=== PATIENT | female | born 1950 | race Caucasian/White ===

== ENCOUNTER → 2016-08-31 | Outpatient (CLI) | payer OTHER, MEDICAID ==
--- NOTE | 2016-08-31 15:39 | RAD ---
HISTORY: Left ankle pain Study: 3 views of the left ankle. Comparison: None Findings: Status post ORIF left ankle fracture. No evidence of hardware compromise. The ankle mortise remains well aligned. No significant soft tissue swelling or injury can be seen. IMPRESSION: 1. No acute abnormalities of the left ankle. 2. ORIF left ankle fracture. Reported By:
--- NOTE | 2016-08-31 15:41 | RAD ---
HISTORY: Left knee pain. Complete two view series of the left knee joint. Findings: Examination of the left knee demonstrate no evidence for a displaced fracture, subluxation, or dislo cation. The medial and lateral tibiofemoral compartments demonstrate moderate joint space narrowing and marginal osteophyte formation. The findings are compatible with mild degenerative joint diseas e. The lateral radiograph fails to demonstrate significant joint effusion. Patellofemoral compartm ent shows moderate DJD and mild chondromalacia patella. IMPRESSION: Osteopenia with a subtle vertical lucency through the tibial plateau which could reflect a 'stress fracture.' This can be correlated with MR imaging, given the degree of osteopenia on this examination. Moderate tricompartmental knee joint osteoarthritis. Reported By:
== END ==
LOC: RAD 14:55
PROVIDERS: ATTEND Nurse Practitioner Family
DX: M25.562 Pain in left knee (principal); M25.572 Pain in left ankle and joints of left foot; Z98.890 Other specified postprocedural states
CPT/HCPCS: 73560; 73610

== ENCOUNTER → 2016-10-15 | Outpatient (CLI) | payer OTHER, MEDICAID ==
--- NOTE | 2016-10-16 08:40 | MRI ---
MRI left knee without contrast Indication: Knee pain with concern for tibial plateau stress fracture Technique: Multi sequence, multiplanar MR images of the left knee were obtained without contrast. Re formatted images in the coronal and sagittal planes were also generated for review. Comparison: Knee radiographs August 31, 2016 Findings: There is patchy marrow edema throughout the medial tibial metaphysis without discrete frac ture identified. However, there is subtle buckling of the medial tibial metaphyseal cortex (for exam ple coronal image 17, series 801) with mild periosteal edema - suggesting a subtle, nondisplaced imp action injury/stress reaction. No intra-articular extension into the knee is seen. There is also pat tanya edema within the medial femoral metaphysis without discrete fracture identified. Remaining marro w signal is within normal limits. There is mild tricompartmental chondromalacia with diffuse articular cartilage thinning noted throug hout all 3 compartments. No full-thickness cartilage defects are identified. No significant joint ef fusion or Rodriguez's cyst is seen. The menisci, cruciate ligaments, MCL, major lateral stabilizers of the knee and extensor mechanism a ppear intact. Impression: 1. Imaging finding suggestive of subtle, impaction injury of the medial tibial metaphysis without si gnificant associated depression or intra-articular extension into the knee. Patchy edema within medi al femoral metaphysis may also reflect mild stress reaction. 2. Otherwise, no MR evidence of internal derangement. 3. Mild tricompartmental chondromalacia. Reported By:
== END ==
LOC: RAD 14:48
PROVIDERS: ATTEND Orthopaedic Surgery
DX: M84.362A Stress fracture, left tibia, initial encounter for fracture (principal); X58.XXXA Exposure to other specified factors, initial encounter
CPT/HCPCS: 73721

== ENCOUNTER 2021-06-19 14:27 | Inpatient (IN) ==
[2021-06-19 18:51] LABS: BASOPHILS # (AUTO) 0.1 X10^3/uL (0.0-0.1); EOSINOPHILS # (AUTO) 0.1 x10^3/uL (0.0-0.2); EOSINOPHILS % (AUTO) 0.6 % (0.9-2.9); HEMATOCRIT 44.4 % (36.0-47.0); HEMOGLOBIN 15.2 g/dL (12.0-16.0); LYMPHOCYTES # (AUTO) 1.5 X10^3/uL (1.3-2.9); LYMPHOCYTES % (AUTO) 16.6 % (21.0-51.0); MEAN CORPUSCULAR HEMOGLOBIN 31.7 pg (27.0-34.0); MEAN CORPUSCULAR HGB CONC 34.2 g/dL (33.0-35.0); MEAN CORPUSCULAR VOLUME 92.9 fL (80.0-100.0); MEAN PLATELET VOLUME 9.3 fL (7.4-11.0); MONOCYTES # (AUTO) 0.9 x10^3/uL (0.3-0.8); MONOCYTES % (AUTO) 10.3 % (0.0-13.0); NEUTROPHILS # (AUTO) 6.6 x10^3/uL (2.2-4.8); NEUTROPHILS % (AUTO) 71.5 % (42.0-75.0); RED BLOOD COUNT 4.78 X10^6/uL (3.5-5.4); RED CELL DISTRIBUTION WIDTH 13.6 % (11.6-16.5); WHITE BLOOD COUNT 9.2 X10^3/uL (3.6-10.0)
[2021-06-19] MEDS: LEVAQUIN PREMIX IV 500 MG 500 MG/100 ML BAG IV SCH (18:59)
[2021-06-19] MEDS: NS 1,000 ML IV 1,000 ML IV SCH (18:59)
[2021-06-19 19:04] LABS: ALANINE AMINOTRANSFERASE 11 Units/L (12-78); ALBUMIN 3.5 g/dL (3.4-5.0); ALKALINE PHOSPHATASE 173 Units/L (46-116); ASPARTATE AMINO TRANSFERASE 17 Units/L (15-37); BLOOD UREA NITROGEN 8 mg/dL (7-18); CALCIUM 8.9 mg/dL (8.5-10.1); CHLORIDE 97 mmol/L (98-107); CREATININE 0.84 mg/dL (0.55-1.02); MAGNESIUM 1.9 mg/dL (1.7-2.9); SODIUM 133 mmol/L (136-145); TOTAL PROTEIN 8.8 g/dL (6.4-8.2); eGFR NON BLACK RACES > 60 (>60)
[2021-06-19 19:08] LABS: LACTIC ACID 1.1 mmol/L (0.4-2.0)
[2021-06-19] MEDS ORDERED: K-RIDER 10 MEQ/NS 100 ML 10 MEQ/100 ML BAG IV PRN (20:10)
[2021-06-19] MEDS ORDERED: MICRO K EXTEN CAP 10 MEQ PO PRN (20:10)
[2021-06-19] MEDS ORDERED: POTASSIUM CHL 60 MEQ/NS 0.45% 500 ML IV PRN (20:10)
[2021-06-19] MEDS ORDERED: POTASSIUM CHLORIDE LIQ 20 MEQ UDC PO PRN (20:10)
[2021-06-19] MEDS ORDERED: POTASSIUM CHL 40 MEQ/NS 0.45% 500 ML IV PRN (20:10)
[2021-06-19] MEDS ORDERED: KLOR-CON PO PRN (20:10)
[2021-06-19] MEDS: ZOSYN VIAL 3.375 GRAMS 3.375 G in NS 100 ML IV 100 ML IV SCH ×2 (20:25→21:06)
[2021-06-19 21:03] LABS: BILIRUBIN,URINE NEGATIVE (NEGATIVE); BLOOD/HEMOGLOBIN,URINE NEGATIVE (NEGATIVE); GLUCOSE, URINE NEGATIVE (NEGATIVE); KETONES,URINE NEGATIVE (NEGATIVE); LEUKOCYTE ESTERASE ,URINE NEGATIVE (NEGATIVE); NITRITES,URINE NEGATIVE (NEGATIVE); PROTEIN,URINE NEGATIVE (NEGATIVE); UROBILINOGEN,URINE NORMAL (NORMAL)
[2021-06-19 21:05] LABS: APPEARANCE,URINE CLEAR (CLEAR); COLOR,URINE PALE YELLOW (YELLOW)
[2021-06-20] MEDS: MAGNESIUM SULFATE 1 GRAM/100 mL PREMIX 1 G/100 ML BAG IV PRN ×2 (00:24→01:25)
[2021-06-20] MEDS: ZOSYN VIAL 3.375 GRAMS 3.375 G in NS 100 ML IV 100 ML IV SCH ×3 (05:05→22:00)
[2021-06-20 05:18] LABS: BASOPHILS % (AUTO) 0.7 % (0.2-1.0); EOSINOPHILS # (AUTO) 0.1 x10^3/uL (0.0-0.2); EOSINOPHILS % (AUTO) 1.1 % (0.9-2.9); HEMATOCRIT 39.5 % (36.0-47.0); HEMOGLOBIN 13.3 g/dL (12.0-16.0); LYMPHOCYTES # (AUTO) 1.4 X10^3/uL (1.3-2.9); LYMPHOCYTES % (AUTO) 20.3 % (21.0-51.0); MEAN CORPUSCULAR HEMOGLOBIN 31.6 pg (27.0-34.0); MEAN CORPUSCULAR HGB CONC 33.7 g/dL (33.0-35.0); MEAN CORPUSCULAR VOLUME 93.8 fL (80.0-100.0); MEAN PLATELET VOLUME 9.1 fL (7.4-11.0); MONOCYTES # (AUTO) 0.9 x10^3/uL (0.3-0.8); NEUTROPHILS # (AUTO) 4.4 x10^3/uL (2.2-4.8); NEUTROPHILS % (AUTO) 64.9 % (42.0-75.0); RED BLOOD COUNT 4.22 X10^6/uL (3.5-5.4); RED CELL DISTRIBUTION WIDTH 13.7 % (11.6-16.5); WHITE BLOOD COUNT 6.8 X10^3/uL (3.6-10.0)
[2021-06-20 05:30] LABS: ALANINE AMINOTRANSFERASE 8 Units/L (12-78); ALBUMIN 2.7 g/dL (3.4-5.0); ALKALINE PHOSPHATASE 135 Units/L (46-116); ASPARTATE AMINO TRANSFERASE 16 Units/L (15-37); BLOOD UREA NITROGEN 6 mg/dL (7-18); CALCIUM 8.2 mg/dL (8.5-10.1); CARBON DIOXIDE 28.5 mmol/L (21-32); CHLORIDE 103 mmol/L (98-107); COR CA(FOR HYPOALB) 9.2 mg/dL (8.5-10.1); CREATININE 0.76 mg/dL (0.55-1.02); SODIUM 136 mmol/L (136-145); TOTAL PROTEIN 7.1 g/dL (6.4-8.2); eGFR NON BLACK RACES > 60 (>60)
--- NOTE | 2021-06-20 08:46 | DR.PROGNOT ---
Hospital Progress Notes - Progress Note for Day of: Progress Note Date: 06/20/21 - Chief Complaint Chief Complaint: c/o Lt neck pain with moderate drainage . for neck US today . - Past Medical Family Social History Past Med/Fam/Surg Hx: No changes since H&P Allergies: Allergies aspirin Allergy (Verified 06/06/21 17:05) - Review Of Systems ROS: No change since H&P - Vital Signs Vital Signs: Temperature 98.6 F Pulse Rate 62 Respiratory Rate 17 Blood Pressure [Left Arm] 124/88 Blood Pressure 174/77 O2 Sat by Pulse Oximetry 97 - Physical Exam Oriented: Normal Eyes: Normal Ear: Normal Nose: Normal Throat: Normal Cardiovascular: Normal : Normal GI:Palpation: Normal GI: Tenderness: Normal Skin: Other (Lt upper anterior neck mass , solid and tender 8 x 6 cm , fixed to deep structures and skin ) Speech Pattern: Clear, Appropriate - Laboratory and Diagnostics Result Diagrams: 06/20/21 04:53 06/20/21 04:53 Labs: Laboratory WBC 6.8 X10^3/uL (3.6-10.0) 06/20/21 04:53 RBC 4.22 X10^6/uL (3.5-5.4) 06/20/21 04:53 Hgb 13.3 g/dL (12.0-16.0) 06/20/21 04:53 Hct 39.5 % (36.0-47.0) 06/20/21 04:53 MCV 93.8 fL (80.0-100.0) 06/20/21 04:53 MCH 31.6 pg (27.0-34.0) 06/20/21 04:53 MCHC 33.7 g/dL (33.0-35.0) 06/20/21 04:53 RDW 13.7 % (11.6-16.5) 06/20/21 04:53 Plt Count 168 X10^3/uL (150.0-450.0) 06/20/21 04:53 MPV 9.1 fL (7.4-11.0) 06/20/21 04:53 Neut % (Auto) 64.9 % (42.0-75.0) 06/20/21 04:53 Lymph % (Auto) 20.3 % (21.0-51.0) L 06/20/21 04:53 [place] % (Auto) 13.0 % (0.0-13.0) 06/20/21 04:53 Eos % (Auto) 1.1 % (0.9-2.9) 06/20/21 04:53 Baso % (Auto) 0.7 % (0.2-1.0) 06/20/21 04:53 Neut # (Auto) 4.4 x10^3/uL (2.2-4.8) 06/20/21 04:53 Lymph # (Auto) 1.4 X10^3/uL (1.3-2.9) 06/20/21 04:53 [place] # (Auto) 0.9 x10^3/uL (0.3-0.8) H 06/20/21 04:53 Eos # (Auto) 0.1 x10^3/uL (0.0-0.2) 06/20/21 04:53 Baso # (Auto) 0.0 X10^3/uL (0.0-0.1) 06/20/21 04:53 Absolute Nucleated RBC 0.1 /100WBC 06/20/21 04:53 Sodium 136 mmol/L (136-145) 06/20/21 04:53 Corrected Sodium TNP 06/20/21 04:53 Potassium 4.1 mmol/L (3.5-5.1) 06/20/21 04:53 Chloride 103 mmol/L (98-107) 06/20/21 04:53 Carbon Dioxide 28.5 mmol/L (21-32) 06/20/21 04:53 BUN 6 mg/dL (7-18) L 06/20/21 04:53 Creatinine 0.76 mg/dL (0.55-1.02) 06/20/21 04:53 Est GFR (MDRD) Af Amer > 60 (>60) 06/20/21 04:53 Est GFR (MDRD) Non-Af > 60 (>60) 06/20/21 04:53 Glucose 93 mg/dL (65-99) 06/20/21 04:53 Lactic Acid 1.1 mmol/L (0.4-2.0) 06/19/21 18:24 Calcium 8.2 mg/dL (8.5-10.1) L 06/20/21 04:53 Corrected Calcium 9.2 mg/dL (8.5-10.1) 06/20/21 04:53 Magnesium 2.4 mg/dL (1.7-2.9) 06/20/21 04:53 Total Bilirubin 0.80 mg/dL (0.2-1.0) 06/20/21 04:53 AST 16 Units/L (15-37) 06/20/21 04:53 ALT 8 Units/L (12-78) L 06/20/21 04:53 Alkaline Phosphatase 135 Units/L (46-116) H 06/20/21 04:53 C-Reactive Protein 31.90 mg/L (0-3.0) H 06/19/21 18:24 Total Protein 7.1 g/dL (6.4-8.2) 06/20/21 04:53 Albumin 2.7 g/dL (3.4-5.0) L 06/20/21 04:53 Globulin 4.4 g/dL (2.5-4.5) 06/20/21 04:53 Albumin/Globulin Ratio 0.6 Ratio (1.1-2.1) L 06/20/21 04:53 Specimen Type Clean catch urine 06/19/21 20:22 Urine Color Pale yellow (YELLOW) 06/19/21 20:22 Urine Appearance Clear (CLEAR) 06/19/21 20:22 Urine pH 7.0 (5.0 - 8.0) 06/19/21 20:22 Ur Specific [place] 1.005 (1.000-1.030) 06/19/21 20:22 Urine Protein Negative (NEGATIVE) 06/19/21 20:22 Urine Glucose (UA) Negative (NEGATIVE) 06/19/21 20:22 Urine Ketones Negative (NEGATIVE) 06/19/21 20:22 Urine Blood Negative (NEGATIVE) 06/19/21 20:22 Urine Nitrite Negative (NEGATIVE) 06/19/21 20:22 Urine Bilirubin Negative (NEGATIVE) 06/19/21 20:22 Urine Urobilinogen Normal (NORMAL) 06/19/21 20:22 Ur Leukocyte Esterase Negative (NEGATIVE) 06/19/21 20:22 SARS CoV-2 RNA Rapid [place] Negative (NEGATIVE) 06/19/21 16:29 - Assessment and Plan 1: upper anterior LT neck mass suspicious for malignancy possible parotid mass . needs VALERIE with sono gram . IV ABT and local care ..
[2021-06-20] MEDS: LEVAQUIN PREMIX IV 500 MG 500 MG/100 ML BAG IV SCH (08:53)
[2021-06-20] MEDS: PERCOCET TAB 5/325 MG PO PRN (08:53)
--- NOTE | 2021-06-20 11:12 | DR.H&P ---
H&P - History & Physical for Day of: H&P Date: 06/19/21 - Chief Complaint Chief Complaint: LEFT SIDE NECK MASS - History of Present Illness History of Present Illness: IS A 71 YEAR OLD PATIENT OF OURS. SHE PRESENTED TO THE OFFICE WITH COMPLAINTS OF SWELLING AND PAIN TO THE LEFT SIDE OF NECK. SWELLING EXTENDS TO BEHIND THE LEFT EAR. AREA HAS APPARENTLY GROWN IN SIZE OVER THE PAST FEW MONTHS. PATIENT REPORTS THAT SYMPTOMS HAVE BEEN PRESENT FOR THE PAST 2-3 MONTHS. SHE REPORTS HAVING A LESION THAT BURST AND BEGAN BLEEDING LAST NIGHT. SHE WAS SEEN IN THE ER ON 06/06/21. A SOFT TISSUE NECK CT WAS OBTAINED AT THAT TIME AND REVEALED: 1. Large mass in the left neck invading the parotid salivary gland, sternocleidomastoid, and abutting the left submandibular salivary gland the jugular vein. 2. There is a branching fluid collection in the periphery of the lesion extending to the skin surface with gas bubble suggesting either abscess or necrosis. 3. Extensive thickening of the scan which could be dermal invasion or cellulitis. Correlate clinically. 4. Ultrasound-guided needle biopsy can be provided. SHE WAS APPARENTLY PRESCRIBED CLINDAMYCIN FROM THE ER, BUT NEVER PICKED UP PRESCRIPTION. WE PRESCRIBED HER BACTRIM, BUT PATIENT NEVER PICKED IT UP EITHER. PATIENTS GRANDDAUGHTER REPORTS THAT PATIENT HAS ALSO HAD INCREASED CONFUSION AND ALTERED MENTAL STATUS. SHE WAS ADMITTED TO THE HOSPITAL FOR FURTHER EVALUATION AND TREATMENT. ON ARRIVAL TO THE HOSPITAL, VITALS WERE 98.7-67-14-99%-179/84. LABS WERE OBTAINED. WBC 9.2, HGB 15.2, HCT 44.4, SODIUM 133, POTASSIUM 2.5, CHLORIDE 97, ALT 11, ALK PHOS 173, CRP 31.90, TOTAL PROTEIN 8.8, GLOBULIN 5.3. COVID-19 NEGATIVE. URINALYSIS IS UNREMARKABLE. BLOOD AND URINE CULTURES WERE SET UP. SHE WAS STARTEDO N NORMAL SALINE AT 75 ML/HR, LEVAQUIN 500MG IV DAILY, ZOSYN 3.375G IV TID, SOLU-MEDROL 40MG IV Q8H, GABAPENTIN 300MG PO TID, THE POTASSIUM AND MAGNESIUM PROTOCOLS. WE WILL CONSULT WITH , GENERAL SURGEON. OTHERWISE, WE PLAN TO FOLLOW-UP WITH AM LABS AND CONTINUE TO MONITOR. TIME SPENT ON CLINICAL ASSESSMENT, REVIEWING LABS AND IMAGING, DECISION MAKING, AND DOCUMENTATION GREATER THAN 75 MINUTES. - Past Medical History Past Medical History: Diabetes, Depression, Anxiety - Past Surgical History Surgical History: Ortho Surgery, Tonsillectomy - Family History Family Medical History: Diabetes Mellitus - Social History Does patient currently use any type of tobacco product: Yes Have you used tobacco products in the last 12 months: Yes Type of Tobacco Use: Cigarettes Alcohol Use: None Drug Use: None - Medications Home Medications: aspirin Allergy (Verified 06/06/21 17:05) - Review of Systems Constitutional: Weakness Eyes: No Symptoms Reported ENT: No Symptoms Reported Respiratory: No Symptoms Reported Cardiovascular: No Symptoms Reported Gastrointestinal: No Symptoms Reported Genitourinary: No Symptoms Reported Musculoskeletal: Leg Pain (BILATERAL LEG PAIN) Skin: Other (MASS AND SWELLING TO LEFT SIDE NECK ) Neurological: Weakness - Physical Exam Vital Signs: Temperature 98.9 F Pulse Rate 70 Respiratory Rate 20 Blood Pressure [Left Arm] 124/88 Blood Pressure 150/72 O2 Sat by Pulse Oximetry 91 Oriented: Normal Eyes: Normal Ear: Normal Nose: Normal Throat: Normal Respiratory: Diminished Throughout Cardiovascular: Normal : Normal Auscultation: Bowel Sounds: Normal Palpation: Normal Tenderness: Normal Skin: Other (Large mass about 8 x 6 cm at the angle of the mandible extending posteriorly and inferiorly. ) Musculoskeletal: Normal Psychiatric: Normal Mood Description: Calm Affect: Normal Speech Pattern: Clear - Assessment/Plan (1) Mass of left side of neck Status: Acute Plan: ADMIT, NORMAL SALINE AT 75 ML/HR, LEVAQUIN 500MG IV DAILY, ZOSYN 3.375G IV TID, SOLU-MEDROL 40MG IV Q8H, GABAPENTIN 300MG PO TID, THE POTASSIUM AND MAGNESIUM PROTOCOLS. CONSULT GENERAL SURGERY - Allergies Allergies/Adverse Reactions: Allergies Allergy/AdvReac Type Severity Reaction Status Date / Time aspirin Allergy Verified 06/06/21 17:05
[2021-06-20] MEDS: NEURONTIN CAP 300 MG PO SCH ×3 (11:15→22:00)
[2021-06-20] MEDS: SOLU-Medrol 40 MG VIAL IVP SCH ×3 (11:15→22:00)
--- NOTE | 2021-06-20 11:20 | RAD ---
HISTORYSOBSTUDYCHEST x-ray, 1 VIEWCOMPARISONX-ray 01/02/2019FINDINGSCOPD is suspected. There may be chronic interstitial lung disease changes seen throughout the lungs. No focal infiltrate is seen. Heart appears prominent but no pulmonary venous congestion is seen. No pneumothorax or pleural effusion is seen.IMPRESSIONProbable COPD and possible diffuse chronic interstitial lung disease changes. Findings have likely mildly worsened since prior study.There is cardiomegaly without evidence of CHF.Electronically signed by: Marcelo Rogers (Jun 20, 2021 11:19:11)
[2021-06-20] MEDS: NS 1,000 ML IV 1,000 ML IV SCH (12:00)
--- NOTE | 2021-06-20 16:51 | US ---
HISTORYMass left side of the neckSTUDYUltrasound SOFT TISSUE NECK, two-dimensional and color Doppler ultrasound is performed of the neck with image documentation.COMPARISONCT 06/06/2021FINDINGSThere is a 5.7 x 2.6 x 4.1 cm complex mass in the left side of the neck corresponding to abnormality seen on CT. Doppler ultrasound suggests it is hypervascular. It is concerning for malignancy. No focal fluid collection is seen to suggest an abscess. The hypodense areas on CT are probable necrosis.IMPRESSION5.7 x 2.6 x 4.1 cm mass in the left side of the neck is probably malignant.Electronically signed by: Marcelo Rogers (Jun 20, 2021 16:50:02)
[2021-06-21] MEDS: NS 1,000 ML IV 1,000 ML IV SCH ×2 (01:00→15:23)
[2021-06-21 05:37] LABS: BASOPHILS % (AUTO) 0.2 % (0.2-1.0); HEMATOCRIT 36.5 % (36.0-47.0); HEMOGLOBIN 12.2 g/dL (12.0-16.0); LYMPHOCYTES # (AUTO) 0.3 X10^3/uL (1.3-2.9); LYMPHOCYTES % (AUTO) 4.8 % (21.0-51.0); MEAN CORPUSCULAR HEMOGLOBIN 31.4 pg (27.0-34.0); MEAN CORPUSCULAR HGB CONC 33.3 g/dL (33.0-35.0); MEAN CORPUSCULAR VOLUME 94.2 fL (80.0-100.0); MEAN PLATELET VOLUME 9.3 fL (7.4-11.0); MONOCYTES # (AUTO) 0.1 x10^3/uL (0.3-0.8); MONOCYTES % (AUTO) 2.1 % (0.0-13.0); NEUTROPHILS # (AUTO) 5.1 x10^3/uL (2.2-4.8); NEUTROPHILS % (AUTO) 92.9 % (42.0-75.0); RED BLOOD COUNT 3.87 X10^6/uL (3.5-5.4); RED CELL DISTRIBUTION WIDTH 13.6 % (11.6-16.5); WHITE BLOOD COUNT 5.5 X10^3/uL (3.6-10.0)
[2021-06-21] MEDS: NEURONTIN CAP 300 MG PO SCH ×3 (05:43→21:11)
[2021-06-21] MEDS: ZOSYN VIAL 3.375 GRAMS 3.375 G in NS 100 ML IV 100 ML IV SCH ×3 (05:43→21:11)
[2021-06-21] MEDS: SOLU-Medrol 40 MG VIAL IVP SCH ×3 (05:43→21:11)
[2021-06-21 06:04] LABS: ALANINE AMINOTRANSFERASE 12 Units/L (12-78); ALBUMIN 2.4 g/dL (3.4-5.0); ALKALINE PHOSPHATASE 124 Units/L (46-116); ASPARTATE AMINO TRANSFERASE 23 Units/L (15-37); BLOOD UREA NITROGEN 9 mg/dL (7-18); CALCIUM 8.4 mg/dL (8.5-10.1); CARBON DIOXIDE 25.7 mmol/L (21-32); CHLORIDE 104 mmol/L (98-107); COR CA(FOR HYPOALB) 9.7 mg/dL (8.5-10.1); COR NA(FOR HYPERGLY) 139 mmol/L (136-145); CREATININE 0.78 mg/dL (0.55-1.02); SODIUM 137 mmol/L (136-145); TOTAL PROTEIN 6.7 g/dL (6.4-8.2); eGFR NON BLACK RACES > 60 (>60)
[2021-06-21 06:25] LABS: BAND NEUTROPHILS % 3 % (0-10); PLATELET MORPHOLOGY COMMENT NORMAL (NORMAL)
[2021-06-21] MEDS: LEVAQUIN PREMIX IV 500 MG 500 MG/100 ML BAG IV SCH (10:03)
[2021-06-21] MEDS ORDERED: PHARMACY CONSULT - VANCOMYCIN XX SCH (13:00)
[2021-06-21] MEDS: VANCOMYCIN IV *PREMIX 1 G/200 ML BAG 1 G/200 ML PIGGYBACK IV SCH (15:23)
[2021-06-22] MEDS: NS 1,000 ML IV 1,000 ML IV SCH ×2 (02:00→18:27)
[2021-06-22 05:13] LABS: ALANINE AMINOTRANSFERASE 15 Units/L (12-78); ALBUMIN 2.4 g/dL (3.4-5.0); ALKALINE PHOSPHATASE 117 Units/L (46-116); ASPARTATE AMINO TRANSFERASE 18 Units/L (15-37); BLOOD UREA NITROGEN 11 mg/dL (7-18); CALCIUM 8.1 mg/dL (8.5-10.1); CARBON DIOXIDE 25.6 mmol/L (21-32); CHLORIDE 105 mmol/L (98-107); COR CA(FOR HYPOALB) 9.4 mg/dL (8.5-10.1); COR NA(FOR HYPERGLY) 141 mmol/L (136-145); CREATININE 0.75 mg/dL (0.55-1.02); SODIUM 139 mmol/L (136-145); TOTAL PROTEIN 6.3 g/dL (6.4-8.2); eGFR NON BLACK RACES > 60 (>60)
[2021-06-22 05:15] LABS: BASOPHILS % (AUTO) 0.2 % (0.2-1.0); HEMATOCRIT 35.2 % (36.0-47.0); HEMOGLOBIN 11.8 g/dL (12.0-16.0); LYMPHOCYTES # (AUTO) 0.3 X10^3/uL (1.3-2.9); LYMPHOCYTES % (AUTO) 4.5 % (21.0-51.0); MEAN CORPUSCULAR HEMOGLOBIN 31.4 pg (27.0-34.0); MEAN CORPUSCULAR HGB CONC 33.5 g/dL (33.0-35.0); MEAN CORPUSCULAR VOLUME 93.8 fL (80.0-100.0); MEAN PLATELET VOLUME 9.4 fL (7.4-11.0); MONOCYTES # (AUTO) 0.3 x10^3/uL (0.3-0.8); NEUTROPHILS # (AUTO) 6.1 x10^3/uL (2.2-4.8); NEUTROPHILS % (AUTO) 91.3 % (42.0-75.0); RED BLOOD COUNT 3.75 X10^6/uL (3.5-5.4); RED CELL DISTRIBUTION WIDTH 13.7 % (11.6-16.5); WHITE BLOOD COUNT 6.7 X10^3/uL (3.6-10.0)
[2021-06-22 05:31] LABS: BAND NEUTROPHILS % 1 % (0-10); PLATELET MORPHOLOGY COMMENT NORMAL (NORMAL)
[2021-06-22] MEDS: ZOSYN VIAL 3.375 GRAMS 3.375 G in NS 100 ML IV 100 ML IV SCH ×3 (05:37→21:16)
[2021-06-22] MEDS: NEURONTIN CAP 300 MG PO SCH ×3 (05:37→21:15)
[2021-06-22] MEDS: SOLU-Medrol 40 MG VIAL IVP SCH ×3 (05:37→21:16)
[2021-06-22] MEDS: VANCOMYCIN IV *PREMIX 1 G/200 ML BAG 1 G/200 ML PIGGYBACK IV SCH (12:47)
[2021-06-22] MEDS: K-DUR TAB 20 MEQ PO PRN (18:27)
[2021-06-23 05:14] LABS: BASOPHILS % (AUTO) 0.1 % (0.2-1.0); HEMATOCRIT 35.5 % (36.0-47.0); HEMOGLOBIN 11.8 g/dL (12.0-16.0); LYMPHOCYTES # (AUTO) 0.2 X10^3/uL (1.3-2.9); LYMPHOCYTES % (AUTO) 3.1 % (21.0-51.0); MEAN CORPUSCULAR HEMOGLOBIN 31.6 pg (27.0-34.0); MEAN CORPUSCULAR HGB CONC 33.4 g/dL (33.0-35.0); MEAN CORPUSCULAR VOLUME 94.5 fL (80.0-100.0); MEAN PLATELET VOLUME 10.2 fL (7.4-11.0); MONOCYTES # (AUTO) 0.4 x10^3/uL (0.3-0.8); MONOCYTES % (AUTO) 5.7 % (0.0-13.0); NEUTROPHILS # (AUTO) 6.8 x10^3/uL (2.2-4.8); NEUTROPHILS % (AUTO) 91.1 % (42.0-75.0); RED BLOOD COUNT 3.75 X10^6/uL (3.5-5.4); RED CELL DISTRIBUTION WIDTH 13.6 % (11.6-16.5); WHITE BLOOD COUNT 7.5 X10^3/uL (3.6-10.0)
[2021-06-23 05:29] LABS: ALANINE AMINOTRANSFERASE 17 Units/L (12-78); ALBUMIN 2.4 g/dL (3.4-5.0); ALKALINE PHOSPHATASE 115 Units/L (46-116); ASPARTATE AMINO TRANSFERASE 23 Units/L (15-37); BLOOD UREA NITROGEN 10 mg/dL (7-18); CALCIUM 7.8 mg/dL (8.5-10.1); CARBON DIOXIDE 23.6 mmol/L (21-32); CHLORIDE 102 mmol/L (98-107); COR CA(FOR HYPOALB) 9.1 mg/dL (8.5-10.1); COR NA(FOR HYPERGLY) 139 mmol/L (136-145); CREATININE 0.77 mg/dL (0.55-1.02); SODIUM 134 mmol/L (136-145); TOTAL PROTEIN 6.4 g/dL (6.4-8.2); eGFR NON BLACK RACES > 60 (>60)
[2021-06-23] MEDS: NEURONTIN CAP 300 MG PO SCH ×3 (05:36→21:43)
[2021-06-23] MEDS: SOLU-Medrol 40 MG VIAL IVP SCH ×3 (05:37→21:43)
[2021-06-23] MEDS: PERCOCET TAB 5/325 MG PO PRN (05:37)
[2021-06-23] MEDS: ZOSYN VIAL 3.375 GRAMS 3.375 G in NS 100 ML IV 100 ML IV SCH ×3 (05:37→21:44)
[2021-06-23] MEDS: NS 1,000 ML IV 1,000 ML IV SCH ×2 (05:37→23:43)
[2021-06-23 05:46] LABS: BAND NEUTROPHILS % 1 % (0-10); PLATELET MORPHOLOGY COMMENT NORMAL (NORMAL)
[2021-06-23] MEDS: K-DUR TAB 20 MEQ PO PRN (06:25)
[2021-06-23] MEDS ORDERED: XYLOCAINE 1 % (PLAIN) ONE (10:05)
[2021-06-23] MEDS ORDERED: DILAUDID INJ IVP ONE (10:06)
--- NOTE | 2021-06-23 11:04 | OR.IMMED ---
Immediate Post-Op Note - Immediate Post-Op Note Pre-Op Diagnosis: LT upper anterior cervical mass possible parotid gland neoplasm .. Post-Op Diagnosis: mass LT upper anterior neck Procedure: Fine Needle Aspirate Lt anterior neck mass Surgeon/Lan Administrator: Dr Iraheta Drains: NONE Complications: none Condition: Stable (to follow as out Pt ..)
[2021-06-23] MEDS: VANCOMYCIN IV *PREMIX 1 G/200 ML BAG 1 G/200 ML PIGGYBACK IV SCH (12:17)
[2021-06-24] MEDS: PERCOCET TAB 5/325 MG PO PRN (04:18)
[2021-06-24] MEDS: NEURONTIN CAP 300 MG PO SCH (05:45)
[2021-06-24] MEDS: ZOSYN VIAL 3.375 GRAMS 3.375 G in NS 100 ML IV 100 ML IV SCH (05:46)
[2021-06-24] MEDS: SOLU-Medrol 40 MG VIAL IVP SCH (05:46)
[2021-06-24 06:19] LABS: BASOPHILS % (AUTO) 0.1 % (0.2-1.0); HEMATOCRIT 36.4 % (36.0-47.0); HEMOGLOBIN 12.3 g/dL (12.0-16.0); LYMPHOCYTES # (AUTO) 0.3 X10^3/uL (1.3-2.9); LYMPHOCYTES % (AUTO) 4.9 % (21.0-51.0); MEAN CORPUSCULAR HEMOGLOBIN 31.8 pg (27.0-34.0); MEAN CORPUSCULAR HGB CONC 33.7 g/dL (33.0-35.0); MEAN CORPUSCULAR VOLUME 94.4 fL (80.0-100.0); MEAN PLATELET VOLUME 10.2 fL (7.4-11.0); MONOCYTES # (AUTO) 0.5 x10^3/uL (0.3-0.8); MONOCYTES % (AUTO) 7.9 % (0.0-13.0); NEUTROPHILS # (AUTO) 5.5 x10^3/uL (2.2-4.8); NEUTROPHILS % (AUTO) 87.1 % (42.0-75.0); RED BLOOD COUNT 3.86 X10^6/uL (3.5-5.4); RED CELL DISTRIBUTION WIDTH 13.5 % (11.6-16.5); WHITE BLOOD COUNT 6.4 X10^3/uL (3.6-10.0)
[2021-06-24 06:37] LABS: ALBUMIN 2.5 g/dL (3.4-5.0); BLOOD UREA NITROGEN 8 mg/dL (7-18); COR CA(FOR HYPOALB) 9.2 mg/dL (8.5-10.1); eGFR NON BLACK RACES > 60 (>60)
[2021-06-24 06:59] LABS: ALANINE AMINOTRANSFERASE 29 Units/L (12-78); ALKALINE PHOSPHATASE 134 Units/L (46-116); ASPARTATE AMINO TRANSFERASE 25 Units/L (15-37); CARBON DIOXIDE 29.8 mmol/L (21-32); CHLORIDE 103 mmol/L (98-107); COR NA(FOR HYPERGLY) 142 mmol/L (136-145); CREATININE 0.74 mg/dL (0.55-1.02); SODIUM 138 mmol/L (136-145)
[2021-06-24 10:55] VITALS: BP 178/82
--- NOTE | 2021-06-24 11:32 | PCM.PROG ---
Progress Note - Progress Note for Day of Date of Exam: 06/23/21 - Subjective Subjective: WAS ADMITTED FOR TREATMENT OF A LEFT NECK MASS. BY LOOKING AT THE SOFT TISSUE ULTRASOUND OF THE NECK, IT APPEARS THAT IT COULD BE INFECTED PAROTID CANCER. SHE DOES REPORTS SOME PURULENT DRAINAGE FROM THE AREA. APPARENTLY IT WAS LANCED OVER THE WEEKEND TO RELIEVE SOME OF THE PRESSURE. ON EXAMINATION, ENLARGED MASS TO LEFT SIDE NECK, AROUND THE ANGLE OF THE MANDIBLE. MINIMAL DRAINAGE FROM AREA THIS MORNING. HEART IS REGULAR IN RATE AND RHYTHM. BILATERAL LUNGS CLEAR TO AUSCULTATION. ABDOMEN IS FLAT, SOFT, AND NON-TENDER WITH NORMAL BOWEL SOUNDS NOTED IN ALL QUADRANTS. NO UPPER OR LOWER EXTREMITY EDEMA NOTED. HER VITALS THIS MORNING ARE: 98.3-59-20-97%-133/60. LABS WERE OBTAINED. WBC 7.5, HGB 11.8, HCT 35.5, PLT COUNT 142, SODIUM 134, POTASSIUM 3.3, GLUCOSE 296, CALCIUM 7.8, ALBUMIN 2.4. BLOOD AND URINE CULTURES PENDING. SHE IS CURRENTLY RECEIVING NORMAL SALINE AT 75 ML/HR, VANCOMYCIN 1G IV DAILY, ZOSYN 3.375G IV TID, SOLU-MEDROL 40MG IV Q8H, GABAPENTIN 300MG PO TID, THE POTASSIUM AND MAGNESIUM PROTOCOLS. WE WILL CONTINUE WITH CURRENT PLAN OF CARE TODAY. PLANS FOR FINE NEEDLE ASPIRATION TODAY. WE ARE IN AGREEMENT WITH PLANS. OTHERWISE, WE PLAN TO FOLLOW UP WITH AM LABS AND CONTINUE TO MONITOR. TIME SPENT ON CLINICAL ASSESSMENT, REVIEWING LABS AND IMAGING, DECISION MAKING, AND DOCUMENTATION GREATER THAN 45 MINUTES. - Past Medical Family Social History Past Med/Fam/Surg Hx: No changes since H&P Allergies: Allergies aspirin Allergy (Verified 06/06/21 17:05) - Review of Systems ROS: No change since H&P - Vital Signs and I&O's Vital Signs: Temperature 98.4 F Pulse Rate 62 Respiratory Rate 16 Blood Pressure [Left Arm] 124/88 Blood Pressure 178/82 O2 Sat by Pulse Oximetry 96 Intake and Output: Intake & Output 06/21/21 06/22/21 06/23/21 06/24/21 11:59 11:59 11:59 11:59 Intake Total 2726 / 2726 4129 / 4129 3577 / 3577 3480 / 3480 Balance 2726 / 2726 4129 / 4129 3577 / 3577 3480 / 3480 - Physical Exam Oriented: Normal Eyes: Normal Ear: Normal Nose: Normal Throat: Normal Respiratory: Normal Cardiovascular: Normal : Normal Auscultation: Bowel Sounds: Normal Palpation: Normal Tenderness: Normal Skin: Other (Large mass about 8 x 6 cm at the angle of the mandible extending posteriorly and inferiorly. ) Musculoskeletal: Normal Psychiatric: Normal Mood Description: Calm Affect: Normal Speech Pattern: Clear, Appropriate - Laboratory and Diagnostics Result Diagrams: 06/24/21 05:35 06/24/21 05:35 Labs: 06/19/21 20:22 Urine,Clean Catch Urine Culture - Final 06/19/21 18:35 Blood Blood Culture - Preliminary 06/19/21 18:24 Blood Blood Culture - Preliminary Laboratory WBC 6.4 X10^3/uL (3.6-10.0) 06/24/21 05:35 RBC 3.86 X10^6/uL (3.5-5.4) 06/24/21 05:35 Hgb 12.3 g/dL (12.0-16.0) 06/24/21 05:35 Hct 36.4 % (36.0-47.0) 06/24/21 05:35 MCV 94.4 fL (80.0-100.0) 06/24/21 05:35 MCH 31.8 pg (27.0-34.0) 06/24/21 05:35 MCHC 33.7 g/dL (33.0-35.0) 06/24/21 05:35 RDW 13.5 % (11.6-16.5) 06/24/21 05:35 Plt Count 124 X10^3/uL (150.0-450.0) L 06/24/21 05:35 Plt Count Comment Decreased (ADEQUATE) A 06/23/21 04:08 MPV 10.2 fL (7.4-11.0) 06/24/21 05:35 Neut % (Auto) 87.1 % (42.0-75.0) H 06/24/21 05:35 Lymph % (Auto) 4.9 % (21.0-51.0) L 06/24/21 05:35 [place] % (Auto) 7.9 % (0.0-13.0) 06/24/21 05:35 Eos % (Auto) 0.0 % (0.9-2.9) L 06/24/21 05:35 Baso % (Auto) 0.1 % (0.2-1.0) L 06/24/21 05:35 Neut # (Auto) 5.5 x10^3/uL (2.2-4.8) H 06/24/21 05:35 Lymph # (Auto) 0.3 X10^3/uL (1.3-2.9) L 06/24/21 05:35 [place] # (Auto) 0.5 x10^3/uL (0.3-0.8) 06/24/21 05:35 Eos # (Auto) 0.0 x10^3/uL (0.0-0.2) 06/24/21 05:35 Baso # (Auto) 0.0 X10^3/uL (0.0-0.1) 06/24/21 05:35 Absolute Nucleated RBC 0.1 /100WBC 06/24/21 05:35 Total Counted 100 06/23/21 04:08 Neutrophils % (Manual) 90 % (39-76) H 06/23/21 04:08 Band Neutrophils % 1 % (0-10) 06/23/21 04:08 Lymphocytes % (Manual) 2 % (13-43) L 06/23/21 04:08 Monocytes % (Manual) 6 % (4-9) 06/23/21 04:08 Eosinophils % (Manual) 1 % (0-6) 06/23/21 04:08 Plt Morphology Comment Normal (NORMAL) 06/23/21 04:08 RBC Morphology Normal (NORMAL) 06/23/21 04:08 PT 14.4 SECONDS (11.8-14.3) 06/24/21 05:35 INR Target Range - 06/24/21 05:35 INR 1.18 (0.8-1.3) 06/24/21 05:35 Sodium 138 mmol/L (136-145) 06/24/21 05:35 Corrected Sodium 142 mmol/L (136-145) 06/24/21 05:35 Potassium 3.7 mmol/L (3.5-5.1) 06/24/21 05:35 Chloride 103 mmol/L (98-107) 06/24/21 05:35 Carbon Dioxide 29.8 mmol/L (21-32) 06/24/21 05:35 BUN 8 mg/dL (7-18) 06/24/21 05:35 Creatinine 0.74 mg/dL (0.55-1.02) 06/24/21 05:35 Est GFR (MDRD) Af Amer > 60 (>60) 06/24/21 05:35 Est GFR (MDRD) Non-Af > 60 (>60) 06/24/21 05:35 Glucose 263 mg/dL (65-99) H 06/24/21 05:35 Lactic Acid 1.1 mmol/L (0.4-2.0) 06/19/21 18:24 Calcium 8.0 mg/dL (8.5-10.1) L 06/24/21 05:35 Corrected Calcium 9.2 mg/dL (8.5-10.1) 06/24/21 05:35 Magnesium 1.9 mg/dL (1.7-2.9) 06/23/21 04:08 Total Bilirubin 0.30 mg/dL (0.2-1.0) 06/24/21 05:35 AST 25 Units/L (15-37) 06/24/21 05:35 ALT 29 Units/L (12-78) 06/24/21 05:35 Alkaline Phosphatase 134 Units/L (46-116) H 06/24/21 05:35 C-Reactive Protein 31.90 mg/L (0-3.0) H 06/19/21 18:24 Total Protein 6.0 g/dL (6.4-8.2) L 06/24/21 05:35 Albumin 2.5 g/dL (3.4-5.0) L 06/24/21 05:35 Globulin 3.5 g/dL (2.5-4.5) 06/24/21 05:35 Albumin/Globulin Ratio 0.7 Ratio (1.1-2.1) L 06/24/21 05:35 Specimen Type Clean catch urine 06/19/21 20:22 Urine Color Pale yellow (YELLOW) 06/19/21 20:22 Urine Appearance Clear (CLEAR) 06/19/21 20:22 Urine pH 7.0 (5.0 - 8.0) 06/19/21 20:22 Ur Specific [place] 1.005 (1.000-1.030) 06/19/21 20:22 Urine Protein Negative (NEGATIVE) 06/19/21 20:22 Urine Glucose (UA) Negative (NEGATIVE) 06/19/21 20:22 Urine Ketones Negative (NEGATIVE) 06/19/21 20:22 Urine Blood Negative (NEGATIVE) 06/19/21 20:22 Urine Nitrite Negative (NEGATIVE) 06/19/21 20:22 Urine Bilirubin Negative (NEGATIVE) 06/19/21 20:22 Urine Urobilinogen Normal (NORMAL) 06/19/21 20:22 Ur Leukocyte Esterase Negative (NEGATIVE) 06/19/21 20:22 SARS CoV-2 RNA Rapid [place] Negative (NEGATIVE) 06/19/21 16:29 Cytology Specimen To follow 06/23/21 10:35 - Plan (1) Mass of left side of neck Status: Acute Plan: NORMAL SALINE AT 75 ML/HR, VANCOMYCIN 1G IV DAILY, ZOSYN 3.375G IV TID, SOLU-MEDROL 40MG IV Q8H, GABAPENTIN 300MG PO TID, THE POTASSIUM AND MAGNESIUM PROTOCOLS. FINE NEEDLE ASPIRATION TODAY
[2021-06-24] MEDS ORDERED: PHARMACY COMMENT IV ONE (12:00)
== END 2021-06-24 11:40 | disposition home or self-care (01) | DRG 607 ==
LOC: ICU → OBSVTOIN 15:59 → MED/SURG 06-23 16:20
PROVIDERS: ADMIT Internal Medicine; ATTEND Internal Medicine
DX: K21.9 Gastro-esophageal reflux disease without esophagitis; R79.82 Elevated C-reactive protein (CRP); Z20.822 Contact with and (suspected) exposure to COVID-19; R06.02 Shortness of breath; E11.65 Type 2 diabetes mellitus with hyperglycemia; C76.0 Malignant neoplasm of head, face and neck; R22.1 Localized swelling, mass and lump, neck; R41.82 Altered mental status, unspecified; F41.8 Other specified anxiety disorders

== ENCOUNTER 2021-12-02 15:29 | Inpatient (IN) ==
[2021-12-02 15:35] VITALS: BMI 15.7
[2021-12-02 16:05] LABS: BASOPHILS # (AUTO) 0.1 X10^3/uL (0.0-0.1); BASOPHILS % (AUTO) 1.3 % (0.2-1.0); EOSINOPHILS # (AUTO) 0.2 x10^3/uL (0.0-0.2); EOSINOPHILS % (AUTO) 3.5 % (0.9-2.9); HEMATOCRIT 39.7 % (36.0-47.0); HEMOGLOBIN 13.2 g/dL (12.0-16.0); LYMPHOCYTES # (AUTO) 0.8 X10^3/uL (1.3-2.9); LYMPHOCYTES % (AUTO) 12.2 % (21.0-51.0); MEAN CORPUSCULAR HEMOGLOBIN 29.5 pg (27.0-34.0); MEAN CORPUSCULAR HGB CONC 33.2 g/dL (33.0-35.0); MEAN CORPUSCULAR VOLUME 89.1 fL (80.0-100.0); MEAN PLATELET VOLUME 9.6 fL (7.4-11.0); MONOCYTES # (AUTO) 0.7 x10^3/uL (0.3-0.8); NEUTROPHILS # (AUTO) 4.5 x10^3/uL (2.2-4.8); RED BLOOD COUNT 4.46 X10^6/uL (3.5-5.4); RED CELL DISTRIBUTION WIDTH 14.7 % (11.6-16.5); WHITE BLOOD COUNT 6.3 X10^3/uL (3.6-10.0)
[2021-12-02 16:17] LABS: ALANINE AMINOTRANSFERASE 17 Units/L (12-78); ALBUMIN 3.2 g/dL (3.4-5.0); ALKALINE PHOSPHATASE 125 Units/L (46-116); ASPARTATE AMINO TRANSFERASE 28 Units/L (15-37); BLOOD ALCOHOL < 3 mg/dL (0-19.9); BLOOD UREA NITROGEN 13 mg/dL (7-18); CALCIUM 8.9 mg/dL (8.5-10.1); CARBON DIOXIDE 30.1 mmol/L (21-32); CHLORIDE 102 mmol/L (98-107); COR CA(FOR HYPOALB) 9.5 mg/dL (8.5-10.1); COR NA(FOR HYPERGLY) 140 mmol/L (136-145); CREATININE 0.79 mg/dL (0.55-1.02); SODIUM 138 mmol/L (136-145); TOTAL PROTEIN 7.7 g/dL (6.4-8.2); eGFR NON BLACK RACES > 60 (>60)
[2021-12-02 16:20] LABS: SALICYLATE < 2.8 mg/dL (2.8-20)
--- NOTE | 2021-12-02 16:31 | DR.GENAD ---
HPI <Yemi Carrillo - Last Filed: 12/05/21 22:08> Time Seen Time Seen by Provider: 12/02/21 16:10 PCP Primary Care Physician: NIYA Complaint/Symptoms Chief Complaint Doctors Comments: PATIENT OVER PAST FEW WEEKS HAS BECAME MORE CONFUSED AND REFUSING TO EAT AND MORE AGGRESSIVE BEHAVIOR. PCP SENT THE PATIENT TO ER FOR FURTHER EVALUATION AND POSSIBLE RESIDENTIAL PLACEMENT. Chief Complaint:: FAMILY MEMBER STATES FOR ABOUT 2 WEEKS PT. HAS BEEN MORE CONFUSED AND REFUSING TO EAT/DRINK. PATIENT IS BECOMING COMBATIVE AND AGGRESSIVE TOWARDS FAMILY MEMBER AND HER WHO ARE PT'S PRIMARY CARE GIVERS AND POA. COVID-19 Coronavirus risk:travel/contact w/high risk person: No Has patient experienced Coronavirus symptoms: No Source History Provided: Patient and Family Member Mode of Arrival Mode of Arrival: Ambulatory Timing Onset of Chief Complaint: 11/18/21 PMH <Yemi Carrillo - Last Filed: 12/05/21 22:08> PMH Past Medical History: Yes Past Medical History: Anxiety, COPD, Depression and Diabetes Past Medical History Comment: SQAUMOUS CELL CARCINOMA Past Surgical History: Yes Surgical History: Ortho Surgery and Tonsillectomy Family History History of Family Medical Conditions: Yes Family Medical History: Diabetes Mellitus Social History Does patient currently use any type of tobacco product: No Have you used tobacco products in the last 12 months: No Type of Tobacco Use: None Does any household member use tobacco: No Alcohol Use: None Do you use any recreational Drugs:: No Lives With: Family Lives Where: Home Travel Risk Coronavirus risk:travel/contact w/high risk person: No Has patient experienced Coronavirus symptoms: No Infectious screening In the last 2 months have you had wt loss of >10#?: NO Have you had fever, night sweats or hemotysis?: No Have you traveled outside the country in the last 6 months?: No Isolation: Standard ROS <Yemi Carrillo - Last Filed: 12/05/21 22:08> Review of Systems Constitutional: Other (IRRATIONAL THINKING AND AGGRESSIVE BEHAVIOR) Eyes: No Symptoms Reported ENTM: No Symptoms Reported Respiratoy: No Symptoms Reported Cardiovascular: No Symptoms Reported Gastrointestinal/Abdominal: No Symptoms Reported Genitourinary: No Symptoms Reported Neurological: No Symptoms Reported Musculoskeletal: Muscle Stiffness Integumentary: No Symptoms Reported Hematologic/Lymphatic: No Symptoms Reported Endocrine: No Symptoms Reported Psychiatric: Other (DELUSIONAL BEHAVIOR) PE <Yemi Carrillo - Last Filed: 12/05/21 22:08> Vital Signs Vitals: Temperature 97.9 F Pulse Rate 57 Respiratory Rate 18 Blood Pressure [Left Arm] 143/78 Blood Pressure 155/112 O2 Sat by Pulse Oximetry 96 General Limitations: No Limitations General Appearance: In No Apparent Distress Head Head Exam: Normal Inspection Eyes Eye exam: Normal Appearance, PERRL and EOMI ENT ENT Exam: Normal Exam, Normal Oropharynx and Normal External Ear Exam External Ear Exam: Normal External Inspection TM/Canal Exam: Bilateral: Normal Nose Exam: Normal Nose Exam Mouth Exam: Normal Inspection Throat Exam: Normal Inspection Neck Neck Exam: Other (AREA OF LEFT NECK WHERE TUMOR WAS REMOVED WAS NOT PAIFUL TO TOUCH.) Chest Chest Inspection: Normal Inspection and Symmetric Chest Wall Rise Cardiovascular Cardiovascular Exam: Regular Rate and Normal Rhythm Abdominal Exam Abdominal Exam: Normal Inspection and Normal Bowel Sounds Extremities Extremities Exam: Normal Inspection and Full ROM Back Back Exam: Normal Inspection and Full ROM Neurologic Neurological Exam: Alert, Oriented X3 and CN II-XII Intact Psychiatric Psychiatric Exam: Anxious and Other (DELUSIONAL) Skin Skin Exam: Warm, Dry and Intact <Sena Jameson - Last Filed: 12/02/21 21:23> Vital Signs Vitals: Temperature 97.9 F Pulse Rate 57 Respiratory Rate 18 Blood Pressure [Left Arm] 143/78 Blood Pressure 155/112 O2 Sat by Pulse Oximetry 96 [facility] <Yemi Carrillo - Last Filed: 12/05/21 22:08> Differential Diagnosis Differential Diagnosis: DELUSIONAL BEHAVIOR, AGGRESSIVE BEHAVIOR COURSE <Yemi Carrillo - Last Filed: 12/05/21 22:08> Treatment Treatment: PATIENT REMAINED RELATIVELY STABLE DURING ER EVALUATION. WAS POSITVE FOR COVID ON LAB EVALUATION. ALL OTHER MEDICAL CLEARANCE WAS DONE. EKG WAS NSR AND CBC AND CMP WERE NORMAL. CONTACT WAS MADE WITH [facility] AND OTHER [facility] AND THEY WOULD NOT TAKE HER BECAUSE OF COVID. <Sena Jameson - Last Filed: 12/02/21 21:23> Consultation Call Returned: 21:07 (Dr Meyer admits for Dr Rod.) ROR <Yemi Carrillo - Last Filed: 12/05/21 22:08> Labs Reviewed Laboratory Results Reviewed?: Yes Result Diagrams: 12/05/21 04:35 12/05/21 04:35 Laboratory: WBC 6.3 X10^3/uL (3.6-10.0) 12/02/21 15:57 RBC 4.46 X10^6/uL (3.5-5.4) 12/02/21 15:57 Hgb 13.2 g/dL (12.0-16.0) 12/02/21 15:57 Hct 39.7 % (36.0-47.0) 12/02/21 15:57 MCV 89.1 fL (80.0-100.0) 12/02/21 15:57 MCH 29.5 pg (27.0-34.0) 12/02/21 15:57 MCHC 33.2 g/dL (33.0-35.0) 12/02/21 15:57 RDW 14.7 % (11.6-16.5) 12/02/21 15:57 Plt Count 155 X10^3/uL (150.0-450.0) 12/02/21 15:57 MPV 9.6 fL (7.4-11.0) 12/02/21 15:57 Neut % (Auto) 72.0 % (42.0-75.0) 12/02/21 15:57 Lymph % (Auto) 12.2 % (21.0-51.0) L 12/02/21 15:57 [place] % (Auto) 11.0 % (0.0-13.0) 12/02/21 15:57 Eos % (Auto) 3.5 % (0.9-2.9) H 12/02/21 15:57 Baso % (Auto) 1.3 % (0.2-1.0) H 12/02/21 15:57 Neut # (Auto) 4.5 x10^3/uL (2.2-4.8) 12/02/21 15:57 Lymph # (Auto) 0.8 X10^3/uL (1.3-2.9) L 12/02/21 15:57 [place] # (Auto) 0.7 x10^3/uL (0.3-0.8) 12/02/21 15:57 Eos # (Auto) 0.2 x10^3/uL (0.0-0.2) 12/02/21 15:57 Baso # (Auto) 0.1 X10^3/uL (0.0-0.1) 12/02/21 15:57 Absolute Nucleated RBC 0.0 /100WBC 12/02/21 15:57 Sodium 138 mmol/L (136-145) 12/02/21 15:57 Corrected Sodium 140 mmol/L (136-145) 12/02/21 15:57 Potassium 3.4 mmol/L (3.5-5.1) L 12/02/21 15:57 Chloride 102 mmol/L (98-107) 12/02/21 15:57 Carbon Dioxide 30.1 mmol/L (21-32) 12/02/21 15:57 BUN 13 mg/dL (7-18) 12/02/21 15:57 Creatinine 0.79 mg/dL (0.55-1.02) 12/02/21 15:57 Est GFR (MDRD) Af Amer > 60 (>60) 12/02/21 15:57 Est GFR (MDRD) Non-Af > 60 (>60) 12/02/21 15:57 Glucose 173 mg/dL (65-99) H 12/02/21 15:57 Calcium 8.9 mg/dL (8.5-10.1) 12/02/21 15:57 Corrected Calcium 9.5 mg/dL (8.5-10.1) 12/02/21 15:57 Total Bilirubin 0.50 mg/dL (0.2-1.0) 12/02/21 15:57 AST 28 Units/L (15-37) 12/02/21 15:57 ALT 17 Units/L (12-78) 12/02/21 15:57 Alkaline Phosphatase 125 Units/L (46-116) H 12/02/21 15:57 Total Protein 7.7 g/dL (6.4-8.2) 12/02/21 15:57 Albumin 3.2 g/dL (3.4-5.0) L 12/02/21 15:57 Globulin 4.5 g/dL (2.5-4.5) 12/02/21 15:57 Albumin/Globulin Ratio 0.7 Ratio (1.1-2.1) L 12/02/21 15:57 Specimen Type Clean catch urine 12/02/21 16:48 Urine Color Yellow (YELLOW) 12/02/21 16:48 Urine Appearance Slightly hazy (CLEAR) 12/02/21 16:48 Urine pH 6.0 (5.0 - 8.0) 12/02/21 16:48 Ur Specific [place] 1.025 (1.000-1.030) 12/02/21 16:48 Urine Protein 4+ (NEGATIVE) 12/02/21 16:48 Urine Glucose (UA) Negative (NEGATIVE) 12/02/21 16:48 Urine Ketones Negative (NEGATIVE) 12/02/21 16:48 Urine Blood 1+ (NEGATIVE) 12/02/21 16:48 Urine Nitrite Negative (NEGATIVE) 12/02/21 16:48 Urine Bilirubin Negative (NEGATIVE) 12/02/21 16:48 Urine Urobilinogen Normal (NORMAL) 12/02/21 16:48 Ur Leukocyte Esterase Negative (NEGATIVE) 12/02/21 16:48 Urine RBC 3-5 /HPF (0-3) A 12/02/21 16:48 Urine WBC None seen /HPF (0-5) 12/02/21 16:48 Ur Squamous Epith Cells Rare /HPF (NEGATIVE) 12/02/21 16:48 Amorphous Sediment 3+ /HPF (NEGATIVE) 12/02/21 16:48 Urine Bacteria Trace /HPF (NEGATIVE) 12/02/21 16:48 Hyaline Casts Few /LPF (NEGATIVE) 12/02/21 16:48 Granular Casts Moderate /LPF (NEGATIVE) 12/02/21 16:48 Urine Mucus Few /HPF (NEGATIVE) 12/02/21 16:48 Ur Culture Indicated? No/not indicated 12/02/21 16:48 Salicylates < 2.8 mg/dL (2.8-20) L 12/02/21 15:57 Urine Opiates Screen Negative (NEG=<300) 12/02/21 16:48 Urine Methadone Screen Negative (NEG=<300) 12/02/21 16:48 Acetaminophen 0.0 ug/mL (10-30) L 12/02/21 15:57 Ur Barbiturates Screen Negative (NEG=<200) 12/02/21 16:48 Ur Phencyclidine Scrn Negative (NEG=<25) 12/02/21 16:48 Ur Amphetamines Screen Negative (NEG=<1000) 12/02/21 16:48 U Benzodiazepines Scrn Positive (NEG=<200) A 12/02/21 16:48 Urine Cocaine Screen Negative (NEG=<300) 12/02/21 16:48 U Marijuana (THC) Screen Negative (NEG=<50) 12/02/21 16:48 Ethyl Alcohol mg/dL < 3 mg/dL (0-19.9) 12/02/21 15:57 SARS CoV-2 RNA Rapid WINTER Positive (NEGATIVE) A 12/02/21 17:40 <Sena Jameson - Last Filed: 12/02/21 21:23> Labs Reviewed Laboratory: WBC 6.3 X10^3/uL (3.6-10.0) 12/02/21 15:57 RBC 4.46 X10^6/uL (3.5-5.4) 12/02/21 15:57 Hgb 13.2 g/dL (12.0-16.0) 12/02/21 15:57 Hct 39.7 % (36.0-47.0) 12/02/21 15:57 MCV 89.1 fL (80.0-100.0) 12/02/21 15:57 MCH 29.5 pg (27.0-34.0) 12/02/21 15:57 MCHC 33.2 g/dL (33.0-35.0) 12/02/21 15:57 RDW 14.7 % (11.6-16.5) 12/02/21 15:57 Plt Count 155 X10^3/uL (150.0-450.0) 12/02/21 15:57 MPV 9.6 fL (7.4-11.0) 12/02/21 15:57 Neut % (Auto) 72.0 % (42.0-75.0) 12/02/21 15:57 Lymph % (Auto) 12.2 % (21.0-51.0) L 12/02/21 15:57 [place] % (Auto) 11.0 % (0.0-13.0) 12/02/21 15:57 Eos % (Auto) 3.5 % (0.9-2.9) H 12/02/21 15:57 Baso % (Auto) 1.3 % (0.2-1.0) H 12/02/21 15:57 Neut # (Auto) 4.5 x10^3/uL (2.2-4.8) 12/02/21 15:57 Lymph # (Auto) 0.8 X10^3/uL (1.3-2.9) L 12/02/21 15:57 [place] # (Auto) 0.7 x10^3/uL (0.3-0.8) 12/02/21 15:57 Eos # (Auto) 0.2 x10^3/uL (0.0-0.2) 12/02/21 15:57 Baso # (Auto) 0.1 X10^3/uL (0.0-0.1) 12/02/21 15:57 Absolute Nucleated RBC 0.0 /100WBC 12/02/21 15:57 Sodium 138 mmol/L (136-145) 12/02/21 15:57 Corrected Sodium 140 mmol/L (136-145) 12/02/21 15:57 Potassium 3.4 mmol/L (3.5-5.1) L 12/02/21 15:57 Chloride 102 mmol/L (98-107) 12/02/21 15:57 Carbon Dioxide 30.1 mmol/L (21-32) 12/02/21 15:57 BUN 13 mg/dL (7-18) 12/02/21 15:57 Creatinine 0.79 mg/dL (0.55-1.02) 12/02/21 15:57 Est GFR (MDRD) Af Amer > 60 (>60) 12/02/21 15:57 Est GFR (MDRD) Non-Af > 60 (>60) 12/02/21 15:57 Glucose 173 mg/dL (65-99) H 12/02/21 15:57 Calcium 8.9 mg/dL (8.5-10.1) 12/02/21 15:57 Corrected Calcium 9.5 mg/dL (8.5-10.1) 12/02/21 15:57 Total Bilirubin 0.50 mg/dL (0.2-1.0) 12/02/21 15:57 AST 28 Units/L (15-37) 12/02/21 15:57 ALT 17 Units/L (12-78) 12/02/21 15:57 Alkaline Phosphatase 125 Units/L (46-116) H 12/02/21 15:57 Total Protein 7.7 g/dL (6.4-8.2) 12/02/21 15:57 Albumin 3.2 g/dL (3.4-5.0) L 12/02/21 15:57 Globulin 4.5 g/dL (2.5-4.5) 12/02/21 15:57 Albumin/Globulin Ratio 0.7 Ratio (1.1-2.1) L 12/02/21 15:57 Specimen Type Clean catch urine 12/02/21 16:48 Urine Color Yellow (YELLOW) 12/02/21 16:48 Urine Appearance Slightly hazy (CLEAR) 12/02/21 16:48 Urine pH 6.0 (5.0 - 8.0) 12/02/21 16:48 Ur Specific [place] 1.025 (1.000-1.030) 12/02/21 16:48 Urine Protein 4+ (NEGATIVE) 12/02/21 16:48 Urine Glucose (UA) Negative (NEGATIVE) 12/02/21 16:48 Urine Ketones Negative (NEGATIVE) 12/02/21 16:48 Urine Blood 1+ (NEGATIVE) 12/02/21 16:48 Urine Nitrite Negative (NEGATIVE) 12/02/21 16:48 Urine Bilirubin Negative (NEGATIVE) 12/02/21 16:48 Urine Urobilinogen Normal (NORMAL) 12/02/21 16:48 Ur Leukocyte Esterase Negative (NEGATIVE) 12/02/21 16:48 Urine RBC 3-5 /HPF (0-3) A 12/02/21 16:48 Urine WBC None seen /HPF (0-5) 12/02/21 16:48 Ur Squamous Epith Cells Rare /HPF (NEGATIVE) 12/02/21 16:48 Amorphous Sediment 3+ /HPF (NEGATIVE) 12/02/21 16:48 Urine Bacteria Trace /HPF (NEGATIVE) 12/02/21 16:48 Hyaline Casts Few /LPF (NEGATIVE) 12/02/21 16:48 Granular Casts Moderate /LPF (NEGATIVE) 12/02/21 16:48 Urine Mucus Few /HPF (NEGATIVE) 12/02/21 16:48 Ur Culture Indicated? No/not indicated 12/02/21 16:48 Salicylates < 2.8 mg/dL (2.8-20) L 12/02/21 15:57 Urine Opiates Screen Negative (NEG=<300) 12/02/21 16:48 Urine Methadone Screen Negative (NEG=<300) 12/02/21 16:48 Acetaminophen 0.0 ug/mL (10-30) L 12/02/21 15:57 Ur Barbiturates Screen Negative (NEG=<200) 12/02/21 16:48 Ur Phencyclidine Scrn Negative (NEG=<25) 12/02/21 16:48 Ur Amphetamines Screen Negative (NEG=<1000) 12/02/21 16:48 U Benzodiazepines Scrn Positive (NEG=<200) A 12/02/21 16:48 Urine Cocaine Screen Negative (NEG=<300) 12/02/21 16:48 U Marijuana (THC) Screen Negative (NEG=<50) 12/02/21 16:48 Ethyl Alcohol mg/dL < 3 mg/dL (0-19.9) 12/02/21 15:57 SARS CoV-2 RNA Rapid WINTER Positive (NEGATIVE) A 12/02/21 17:40 Opioid <Yemi Carrillo - Last Filed: 12/05/21 22:08> Opioid Risk Tool Age (Cm box if 16-45): No History of Preadolescent Sexual Abuse: No Total: 0 Total Score Risk Category: Low Risk Copyright: Torey BANUELOS predicting aberrant behaviors <Sena Jameson - Last Filed: 12/02/21 21:23> Opioid Risk Tool Total: 0 Total Score Risk Category: Low Risk Discharge Plan Diagnosis Discharge Problem: COVID-19, Aggressive behavior, 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
[2021-12-02] MEDS ORDERED: NORCO 7.5/325 MG TAB PO ONE (16:59)
[2021-12-02] MEDS ORDERED: NORCO 7.5/325 MG TAB ONE (17:01)
[2021-12-02 17:08] LABS: BILIRUBIN,URINE NEGATIVE (NEGATIVE); BLOOD/HEMOGLOBIN,URINE 1+ (NEGATIVE); GLUCOSE, URINE NEGATIVE (NEGATIVE); KETONES,URINE NEGATIVE (NEGATIVE); LEUKOCYTE ESTERASE ,URINE NEGATIVE (NEGATIVE); NITRITES,URINE NEGATIVE (NEGATIVE); PROTEIN,URINE 4+ (NEGATIVE); UROBILINOGEN,URINE NORMAL (NORMAL)
[2021-12-02 17:22] LABS: APPEARANCE,URINE SLIGHTLY HAZY (CLEAR); COLOR,URINE YELLOW (YELLOW)
[2021-12-02 17:24] LABS: BACTERIA,URINE TRACE /HPF (NEGATIVE); SQUAMOUS EPITHELIAL CELL,UR RARE /HPF (NEGATIVE)
[2021-12-02 17:26] LABS: GRANULAR CASTS,URINE MODERATE /LPF (NEGATIVE); HYALINE CASTS, URINE FEW /LPF (NEGATIVE)
[2021-12-02] MEDS ORDERED: NS 1,000 ML IV 1,000 ML ONE (22:15)
[2021-12-02] MEDS: NS 1,000 ML IV 1,000 ML IV SCH (22:20)
--- NOTE | 2021-12-02 22:32 | CT ---
STUDY: CT HEAD WITHOUT IV CONTRASTCOMPARISON: NoneTECHNIQUE: axial images were acquired of the head without IV contrast. Coronal and sagittal images were provided. All images were reviewed in a variety of windows and levels.LIMITATIONS: Please note that CT has low sensitivity and accuracy for identifying acute infarction. In addition, there are portions of the brain that are affected by beam hardening artifact which further greatly limits identification of an acute infarct.RADIATION REDUCTION TECHNIQUE: Automated exposure control, Adjustment of the mA and/or kV according to patient size, or iterative reconstruction techniques were used.HISTORY: PT. HAS BEEN MORE CONFUSED AND REFUSING TO EAT/DRINK. PATIENT IS BECOMING COMBATIVE AND AGGRESSIVE. DONE WITH RADIATION, PT. HAS A TUMOR TO LEFT SIDE OF NECKFINDINGS:There is diffuse cerebral atrophy with a regional distribution of low attenuation along the periventricular white matter most likely representing small vessel ischemic changes which are to a degree that would be considered within normal limits for the patient's stated age.There is no evidence of an acute intracranial bleed.There is no evidence of a mass or midline shift.There is no evidence of an extra-axial fluid collection.The p[place]-white matter differentiation is within normal limits.The visualized bones are unremarkable.The visualized sinuses are clear.Complete opacification of the left mastoid air cells is noted. Partial opacification is seen involving the right mastoid air cells.IMPRESSION:1. INVOLUTIONAL CHANGES ARE PRESENT WITH FINDINGS SUGGESTING SMALL VESSEL ISCHEMIC DISEASE WHICH IS TO A DEGREE THAT WOULD BE CONSIDERED WITHIN NORMAL LIMITS FOR THE PATIENT'S STATED AGE.2. THERE IS NO EVIDENCE OF ACUTE INTRACRANIAL BLEED.Nancy lara signed by: Morro Foley (Dec 02, 2021 22:30:52)
[2021-12-03] MEDS ORDERED: NORCO 5/325 MG TAB ONE (01:17)
[2021-12-03] MEDS: NORCO 5/325 MG TAB PO PRN ×4 (01:21→23:21)
[2021-12-03 05:27] LABS: BASOPHILS # (AUTO) 0.2 X10^3/uL (0.0-0.1); BASOPHILS % (AUTO) 3.6 % (0.2-1.0); EOSINOPHILS # (AUTO) 0.3 x10^3/uL (0.0-0.2); EOSINOPHILS % (AUTO) 6.4 % (0.9-2.9); HEMATOCRIT 34.7 % (36.0-47.0); HEMOGLOBIN 11.7 g/dL (12.0-16.0); LYMPHOCYTES # (AUTO) 0.9 X10^3/uL (1.3-2.9); LYMPHOCYTES % (AUTO) 17.7 % (21.0-51.0); MEAN CORPUSCULAR HEMOGLOBIN 29.9 pg (27.0-34.0); MEAN CORPUSCULAR HGB CONC 33.8 g/dL (33.0-35.0); MEAN CORPUSCULAR VOLUME 88.4 fL (80.0-100.0); MEAN PLATELET VOLUME 10.3 fL (7.4-11.0); MONOCYTES # (AUTO) 0.5 x10^3/uL (0.3-0.8); MONOCYTES % (AUTO) 9.6 % (0.0-13.0); NEUTROPHILS # (AUTO) 3.2 x10^3/uL (2.2-4.8); NEUTROPHILS % (AUTO) 62.7 % (42.0-75.0); RED BLOOD COUNT 3.93 X10^6/uL (3.5-5.4); RED CELL DISTRIBUTION WIDTH 14.6 % (11.6-16.5); WHITE BLOOD COUNT 5.1 X10^3/uL (3.6-10.0)
[2021-12-03 05:44] LABS: ALANINE AMINOTRANSFERASE 15 Units/L (12-78); ALBUMIN 2.8 g/dL (3.4-5.0); ALKALINE PHOSPHATASE 109 Units/L (46-116); ASPARTATE AMINO TRANSFERASE 25 Units/L (15-37); BLOOD UREA NITROGEN 13 mg/dL (7-18); CALCIUM 8.5 mg/dL (8.5-10.1); CHLORIDE 104 mmol/L (98-107); COR CA(FOR HYPOALB) 9.5 mg/dL (8.5-10.1); CREATINE KINASE 25 Units/L (26-192); CREATININE 0.54 mg/dL (0.55-1.02); SODIUM 140 mmol/L (136-145); TOTAL PROTEIN 6.8 g/dL (6.4-8.2); eGFR NON BLACK RACES > 60 (>60)
[2021-12-03] MEDS ORDERED: POTASSIUM CHL 40 MEQ/NS 0.45% 500 ML IV PRN (05:51)
[2021-12-03] MEDS ORDERED: POTASSIUM CHL 60 MEQ/NS 0.45% 500 ML IV PRN (05:51)
[2021-12-03] MEDS ORDERED: MICRO K EXTEN CAP 10 MEQ PO PRN (05:51)
[2021-12-03] MEDS ORDERED: KLOR-CON ONE (05:56)
[2021-12-03] MEDS: KLOR-CON PO PRN ×2 (06:00→10:30)
[2021-12-03] MEDS ORDERED: MAGNESIUM SULFATE 1 GRAM/100 mL PREMIX 2 G/200 ML BAG IV ONE (06:02)
[2021-12-03] MEDS: MAGNESIUM SULFATE 1 GRAM/100 mL PREMIX 1 G/100 ML BAG IV PRN ×2 (06:04→07:23)
--- NOTE | 2021-12-03 06:15 | RAD ---
HISTORYCOVID-19, shortness of breathSTUDYChest AP [id number] heart is enlarged. No congestive heart failure is noted. The paco are normal. Lungs are mildly hyperinflated. Interstitial lung changes are present throughout the right lung and in the left lung base some of which are chronic although a superimposed pneumonitis or atypical pneumonia may be present on the right. No alveolar infiltrates or areas of consolidation are identified. No pleural effusions are identified. Bony thorax is unremarkable.IMPRESSIONHyperinflationDiffuse interstitial lung changes throughout the right lung and the left lung base partially chronic however the changes have increased on the right compared to the prior examination. A superimposed acute pneumonitis or atypical pneumonia is possible.Electronically signed by: YOMI HARMAN (Dec 03, 2021 06:13:25)
[2021-12-03] MEDS ORDERED: PULMICORT NEB TX 0.5 MG NEB ONE (07:38)
[2021-12-03] MEDS ORDERED: DUONEB 0.5 MG/3 MG (3 mL) NEB ONE (07:38)
[2021-12-03] MEDS: PULMICORT NEB TX 0.5 MG NEB SCH ×2 (08:44→20:20)
[2021-12-03] MEDS: DUONEB 0.5 MG/3 MG (3 mL) NEB SCH ×4 (08:44→20:20)
[2021-12-03] MEDS: LEVAQUIN PREMIX IV 500 MG 500 MG/100 ML BAG IV SCH (08:48)
[2021-12-03] MEDS: NS 1,000 ML IV 1,000 ML IV SCH (12:00)
[2021-12-03] MEDS: LOVENOX INJ 40 MG SYR SC SCH (14:09)
--- NOTE | 2021-12-03 16:57 | MRI ---
HISTORYAMS, WEAKNESS, HX THROAT CAAltered mental status.[NONCONTRAST] MRI EXAMINATION OF THE BRAIN.Technique: Multiplanar and multi-sequence MRI of the brain was obtained utilizing standard protocol. Sagittal and axial T1 weighted images were obtained. Axial T2 and flair weighted images were performed as well. Axial diffusion weighted and ADC trace mapping was performed. [].Findings: The midline structures are unremarkable. [There is no evidence for cerebellar tonsillar ectopia]. There is [moderate] sulcal and cisternal prominence as well as scattered foci of periventricular white matter T2 signal alteration seen in the high and mid convexities, which is [not] out of portion to patient's stated age. No significant midline shift or herniation syndrome is observed. Examination of the brain parenchyma demonstrates [no abnormal signal characteristics to suggest intraparenchymal mass or hemorrhage]. [No extra-axial fluid collections are observed]. The ventricular system [appears symmetric and nondilated]. [The CP angle is normal in its appearance without brainstem mass or evidence for acoustic neuroma]. The flow voids on both T1 and T2 weighted imaging [are unremarkable]. Evaluation of the diffusion weighted imaging [does not demonstrate abnormal signal characteristics to suggest acute ischemic change]. The extracranial structures [are unremarkable]. The paranasal sinuses [are clear]. The mastoid air cells are [also relatively clear on this examination].IMPRESSION:No acute intracranial abnormality or acute CVA observed. Chronic appearing periventricular white matter microvascular disease is seen throughout the brain which is age-appropriate. Age-appropriate cerebral senescent changes are also observed. No other intracranial abnormalities seen.Electronically signed by: ERIN MORAN III (Dec 03, 2021 16:54:41)
--- NOTE | 2021-12-03 21:33 | DR.H&P ---
H&P - History & Physical for Day of: H&P Date: 12/02/21 - Chief Complaint Chief Complaint: WEAKNESS, AMS, BODY ACHES, CONFUSION - History of Present Illness History of Present Illness: IS A 71 YEAR OLD PATIENT OF OURS. SHE PRESENTED TO THE ER WITH COMPLAINTS OF GENERALIZED WEAKNESS, BODY ACHES, CONFUSION, AND DECREASED APPETITE. HER FAMILY REPORTS THAT SHE HAS HAD ALTERED MENTAL STATUS AND AGGRESSIVE BEHAVIOR AT HOME. PATIENT CURRENTLY LIVES WITH HER NEPHEW AND HIS GIRLFRIEND. HER PMH INCLUDES: SQUAMOUS CELL CARCINOMA OF NECK, ANXIETY, COPD, DEPRESSION, AND DIABETES. SHE RECENTLY HAD A NECK MASS REMOVED. ON ARRIVAL TO THE HOSPITAL, VITALS WERE [id number]%-141/67. LABS WERE OBTAINED. WBC 6.3, HGB 13.2, HCT 39.7, PLT COUNT 155, D-DIMER 1.79, SODIUM 138, POTASSIUM 3.4, CHLORIDE 102, BUN 13, CREATININE 0.79, GLUCOSE 173, CALCIUM 8.9, AST 28, ALT 17, ALK PHOS 125, TOTAL PROTEIN 7.7, ALBUMIN 3.2. COVID-19 POSITIVE. URINALYSIS IS UNREMARKABLE. EKG REVEALED: SINUS RHYTHM WITH OCCASIONAL PVCs. A BRAIN CT WAS OBTAINED AND REVEALED: 1. INVOLUTIONAL CHANGES ARE PRESENT WITH FINDINGS SUGGESTING SMALL VESSEL ISCHEMIC DISEASE WHICH IS TO A DEGREE THAT WOULD BE CONSIDERED WITHIN NORMAL LIMITS FOR THE PATIENT'S STATED AGE. 2. THERE IS NO EVIDENCE OF ACUTE INTRACRANIAL BLEED. BRAIN MRI OBTAINED AND REVEALED: No acute intracranial abnormality or acute CVA observed. Chronic appearing periventricular white matter microvascular disease is seen throughout the brain which is age-appropriate. Age-appropriate cerebral senescent changes are also observed. No other intracranial abnormalities seen. A CHEST XRAY WAS OBTAINED AND REVEALED: Hyperinflation. Diffuse interstitial lung changes throughout the right lung and the left lung base partially chronic however the changes have increased on the right compared to the prior examination. A superimposed acute pneumonitis or atypical pneumonia is possible. IN THE ER, SHE WAS GIVEN NORCO 7.5/325MG PO X 1. MULTIPLE BEHAVIORAL HEALTH UNITS WERE CONTACTED, BUT UNABLE TO ACCEPT PATIENT DUE TO BEING COVID POSITIVE. PATIENT WAS ADMITTED TO THE HOSPTIAL FOR FURTHER EVALUATION AND TREATMENT OF METABOLIC ENCEPHALOPATHY, COVID-19, DEMENTIA, GENERAL WEAKNESS, S/P REMOVAL OF NECK MASS DUE TO SQUAMOUS CELL CARCINOMA. SHE WAS STARTED ON NORMAL SALINE AT 80 ML/HR, THE POTASSIUM AND MAGNESIUM PROTOCOL, LEVAQUIN 500MG IV DAILY, DUONEBS QID, PULMICORT NEBS BID, VALIUM 5MG PO TID PRN, LOVENOX 40MG SC DAILY, NORCO 5/325MG PO Q6H PRN. OTHERWISE, WE PLAN TO FOLLOW-UP WITH AM LABS AND CHEST XRAY AND CONTINUE TO MONITOR. TIME SPENT ON CLINICAL ASSESSMENT, REVIWING LABS AND IMAGING, DECISION MAKING, AND DOCUMENTATION GREATER THAN 75 MINUTES. - Past Medical History Past Medical History: Diabetes, Depression, Anxiety, COPD - Past Surgical History Surgical History: Ortho Surgery, Tonsillectomy Additional Surgical History: S/P REMOVAL OF NECK MASS DUE TO SQUAMOUS CELL CARCINOMA - Family History Family Medical History: Diabetes Mellitus, Cancer - Social History Does patient currently use any type of tobacco product: No Have you used tobacco products in the last 12 months: No Type of Tobacco Use: None Does any household member use tobacco: No Alcohol Use: None Drug Use: None - Medications Home Medications: aspirin Allergy (Verified 12/02/21 15:35) CONTINUE taking the following medications diazepam 5 mg tablet 1 tab PO TID PRN 12/02/21 [History] fluoxetine 20 mg capsule 1 cap PO QDAY 12/02/21 [History] gabapentin 400 mg capsule 1 cap PO TID PRN 12/02/21 [History] ibuprofen 600 mg tablet (IBU) 600 tab PO TID PRN 12/02/21 [History] megestrol 40 mg tablet 1 tab PO BID 12/02/21 [History] oxycodone-acetaminophen 7.5 mg-325 mg tablet 1 tab PO QID PRN 12/02/21 [History] levothyroxine 25 mcg tablet 1 tab PO QDAY 12/03/21 [History] - Review of Systems Constitutional: Weakness Eyes: No Symptoms Reported ENT: No Symptoms Reported Respiratory: Cough, Shortness of Breath Cardiovascular: No Symptoms Reported Gastrointestinal: No Symptoms Reported Genitourinary: No Symptoms Reported Musculoskeletal: Other (GENERALIZED BODY ACHES ) Skin: No Symptoms Reported Neurological: Weakness, Confusion - Physical Exam Vital Signs: Temperature 98.6 F Pulse Rate 90 Respiratory Rate 16 Blood Pressure [Left Arm] 143/78 Blood Pressure 107/56 O2 Sat by Pulse Oximetry 96 Oriented: Person, Place Eyes: Normal Ear: Normal Nose: Normal Throat: Normal, Other (LEFT SIDE NECK SWOLLEN ) Respiratory: Diminished Throughout Cardiovascular: Normal : Normal Auscultation: Bowel Sounds: Normal Palpation: Normal Tenderness: Normal Skin: Decreased [place] Musculoskeletal: Normal Psychiatric: Normal Mood Description: Calm Affect: Normal Speech Pattern: Clear - Assessment/Plan (1) Acute metabolic encephalopathy Status: Acute Plan: ADMIT, SUPPLEMENTAL OXYGEN, NORMAL SALINE AT 80 ML/HR, THE POTASSIUM AND MAGNESIUM PROTOCOL, LEVAQUIN 500MG IV DAILY, DUONEBS QID, PULMICORT NEBS BID, VALIUM 5MG PO TID PRN, LOVENOX 40MG SC DAILY, NORCO 5/325MG PO Q6H PRN. 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
[2021-12-04] MEDS: NS 1,000 ML IV 1,000 ML IV SCH ×3 (00:41→13:40)
[2021-12-04] MEDS: VALIUM PO PRN ×2 (02:33→15:52)
[2021-12-04 05:33] LABS: BASOPHILS # (AUTO) 0.1 X10^3/uL (0.0-0.1); BASOPHILS % (AUTO) 2.6 % (0.2-1.0); EOSINOPHILS # (AUTO) 0.1 x10^3/uL (0.0-0.2); EOSINOPHILS % (AUTO) 2.6 % (0.9-2.9); HEMATOCRIT 31.6 % (36.0-47.0); HEMOGLOBIN 10.8 g/dL (12.0-16.0); LYMPHOCYTES # (AUTO) 0.9 X10^3/uL (1.3-2.9); LYMPHOCYTES % (AUTO) 22.1 % (21.0-51.0); MEAN CORPUSCULAR HEMOGLOBIN 29.8 pg (27.0-34.0); MEAN CORPUSCULAR HGB CONC 34.2 g/dL (33.0-35.0); MEAN CORPUSCULAR VOLUME 87.3 fL (80.0-100.0); MEAN PLATELET VOLUME 9.6 fL (7.4-11.0); MONOCYTES # (AUTO) 0.5 x10^3/uL (0.3-0.8); MONOCYTES % (AUTO) 13.2 % (0.0-13.0); NEUTROPHILS # (AUTO) 2.4 x10^3/uL (2.2-4.8); NEUTROPHILS % (AUTO) 59.5 % (42.0-75.0); RED BLOOD COUNT 3.62 X10^6/uL (3.5-5.4); RED CELL DISTRIBUTION WIDTH 15.1 % (11.6-16.5)
[2021-12-04 05:47] LABS: ALANINE AMINOTRANSFERASE 12 Units/L (12-78); ALBUMIN 2.7 g/dL (3.4-5.0); ALKALINE PHOSPHATASE 100 Units/L (46-116); ASPARTATE AMINO TRANSFERASE 19 Units/L (15-37); BLOOD UREA NITROGEN 8 mg/dL (7-18); CALCIUM 8.4 mg/dL (8.5-10.1); CARBON DIOXIDE 28.6 mmol/L (21-32); CHLORIDE 108 mmol/L (98-107); COR CA(FOR HYPOALB) 9.4 mg/dL (8.5-10.1); CREATININE 0.57 mg/dL (0.55-1.02); MAGNESIUM 1.8 mg/dL (1.7-2.9); SODIUM 142 mmol/L (136-145); TOTAL PROTEIN 6.4 g/dL (6.4-8.2); eGFR NON BLACK RACES > 60 (>60)
[2021-12-04] MEDS: MAGNESIUM SULFATE 1 GRAM/100 mL PREMIX 1 G/100 ML BAG IV PRN ×2 (06:03→07:09)
--- NOTE | 2021-12-04 06:42 | RAD ---
HISTORYFollow-up COVID-19, shortness of breathSTUDYChest AP [id number] heart is enlarged. No congestive heart failure is noted. Lungs are hyperinflated. Diffuse interstitial lung changes are present throughout the right lung unchanged from the prior examination. Less prominent interstitial lung changes again identified in the left lung base. Left upper lung field is clear. No ground-glass or alveolar infiltrates identified. No areas of consolidation identified. No pleural effusions or pneumothoraces identified. Bony thorax is unremarkable.IMPRESSIONHyperinflation, unchangedDiffuse interstitial lung changes throughout the right lung, unchanged from the prior examinationMuch more mild interstitial lung changes left lung base also stable.Electronically signed by: YOMI HARMAN (Dec 04, 2021 06:41:13)
[2021-12-04] MEDS: LOVENOX INJ 40 MG SYR SC SCH (08:10)
[2021-12-04] MEDS: LEVAQUIN PREMIX IV 500 MG 500 MG/100 ML BAG IV SCH (08:10)
[2021-12-04] MEDS: KLOR-CON PO PRN (08:11)
[2021-12-04] MEDS: NORCO 5/325 MG TAB PO PRN ×2 (08:20→17:19)
[2021-12-04] MEDS: DUONEB 0.5 MG/3 MG (3 mL) NEB SCH ×4 (08:50→20:15)
[2021-12-04] MEDS: PULMICORT NEB TX 0.5 MG NEB SCH ×2 (08:50→20:15)
[2021-12-05] MEDS: NORCO 5/325 MG TAB PO PRN ×2 (00:24→08:31)
[2021-12-05] MEDS: VALIUM PO PRN ×2 (00:41→09:10)
[2021-12-05] MEDS: NS 1,000 ML IV 1,000 ML IV SCH ×3 (03:12→16:24)
[2021-12-05 05:30] LABS: BASOPHILS # (AUTO) 0.1 X10^3/uL (0.0-0.1); BASOPHILS % (AUTO) 1.4 % (0.2-1.0); EOSINOPHILS # (AUTO) 0.2 x10^3/uL (0.0-0.2); EOSINOPHILS % (AUTO) 4.8 % (0.9-2.9); HEMATOCRIT 31.2 % (36.0-47.0); HEMOGLOBIN 10.7 g/dL (12.0-16.0); LYMPHOCYTES % (AUTO) 24.9 % (21.0-51.0); MEAN CORPUSCULAR HGB CONC 34.3 g/dL (33.0-35.0); MEAN CORPUSCULAR VOLUME 87.5 fL (80.0-100.0); MEAN PLATELET VOLUME 9.9 fL (7.4-11.0); MONOCYTES # (AUTO) 0.6 x10^3/uL (0.3-0.8); MONOCYTES % (AUTO) 13.3 % (0.0-13.0); NEUTROPHILS # (AUTO) 2.3 x10^3/uL (2.2-4.8); NEUTROPHILS % (AUTO) 55.6 % (42.0-75.0); RED BLOOD COUNT 3.57 X10^6/uL (3.5-5.4); RED CELL DISTRIBUTION WIDTH 15.1 % (11.6-16.5); WHITE BLOOD COUNT 4.2 X10^3/uL (3.6-10.0)
[2021-12-05 05:45] LABS: ALANINE AMINOTRANSFERASE 10 Units/L (12-78); ALBUMIN 2.7 g/dL (3.4-5.0); ALKALINE PHOSPHATASE 97 Units/L (46-116); ASPARTATE AMINO TRANSFERASE 18 Units/L (15-37); BLOOD UREA NITROGEN 3 mg/dL (7-18); CALCIUM 8.4 mg/dL (8.5-10.1); CARBON DIOXIDE 27.5 mmol/L (21-32); CHLORIDE 108 mmol/L (98-107); COR CA(FOR HYPOALB) 9.4 mg/dL (8.5-10.1); CREATININE 0.62 mg/dL (0.55-1.02); MAGNESIUM 1.9 mg/dL (1.7-2.9); SODIUM 142 mmol/L (136-145); TOTAL PROTEIN 6.3 g/dL (6.4-8.2); eGFR NON BLACK RACES > 60 (>60)
[2021-12-05] MEDS: MAGNESIUM SULFATE 1 GRAM/100 mL PREMIX 1 G/100 ML BAG IV PRN ×2 (06:42→08:07)
[2021-12-05] MEDS: DUONEB 0.5 MG/3 MG (3 mL) NEB SCH ×4 (08:30→20:26)
[2021-12-05] MEDS: PULMICORT NEB TX 0.5 MG NEB SCH ×2 (08:30→20:26)
[2021-12-05] MEDS: KLOR-CON PO PRN (08:36)
[2021-12-05] MEDS: LOVENOX INJ 40 MG SYR SC SCH (08:38)
[2021-12-05] MEDS: LEVAQUIN PREMIX IV 500 MG 500 MG/100 ML BAG IV SCH (09:02)
--- NOTE | 2021-12-05 10:44 | PCM.PROG ---
Progress Note - Progress Note for Day of Date of Exam: 12/04/21 - Subjective Subjective: WAS ADMITTED FOR TREATMENT OF ACUTE METABOLIC ENCEPHALOPATHY, PNEUMONIA DUE TO COVID-19, AND GENERALIZED WEAKNESS. SHE HAS A PMH OF DEMENTIA AND HAS RECENTLY HAD A NECK MASS REMOVED DUE TO SQUAMOUS CELL CARCINOMA. TODAY, SHE IS ALERT, LYING IN BED ON MORNING ROUNDS. SHE ANSWERS ALL QUESTIONS APPROPRIATELY AND FOLLOWS COMMANDS. SINCE ADMISSION, PATIENT HAS NOT EXHIBITED ANY AGGRESSIVE OR COMBATIVE BEHAVIORS. ON EXAMINATION, SWELLING NOTED TO LEFT SIDE NECK. HEART IS REGULAR IN RATE AND RHYTHM. BILATERAL LUNGS ARE NOTED WITH DIMINISHED LUNG SOUNDS THROUGHOUT. ABDOMEN IS FLAT, SOFT, AND NON- TENDER WITH NORMAL BOWEL SOUNDS NOTED IN ALL QUADRANTS. NO UPPER OR LOWER EXTREMITY EDEMA NOTED. GOOD MOVEMENT NOTED TO ALL EXTREMITIES. HER VITALS THIS MORNING ARE: 98.1-77-18-93%-148/68. SHE IS CURRENTLY ON ROOM AIR. LABS WERE OBTAINED. WBC 4.0, RBC 3.62, HGB 10.8, HCT 31.6, PLT COUNT 129, SODIUM 142, POTASSIUM 3.7, BUN 8, CREATININE 0.57, GLUCOSE 85, CALCIUM 8.4, AST 19, ALT 12, ALK PHOS 100, CRP 3.60, BNP 292, TOTAL PROTEIN 6.4, ALBUMIN 2.7. CHEST XRAY REVEALED: The heart is enlarged. No congestive heart failure is noted. Lungs are hyperinflated. Diffuse interstitial lung changes are present throughout the right lung unchanged from the prior examination. Less prominent interstitial lung changes again identified in the left lung base. Left upper lung field is clear. No ground-glass or alveolar infiltrates identified. No areas of consolidation identified. No pleural effusions or pneumothoraces identified. Bony thorax is unremarkable. SHE IS CURRENTLY RECEIVING NORMAL SALINE AT 80 ML/HR, THE POTASSIUM AND MAGNESIUM PROTOCOL, LEVAQUIN 500MG IV DAILY, DUONEBS QID, PULMICORT NEBS BID, VALIUM 5MG PO TID PRN, LOVENOX 40MG SC DAILY, NORCO 5/325MG PO Q6H PRN. WE WILL CONTINUE WITH CURRENT PLAN OF CARE TODAY. PHYSICAL THERAPY REPORTS THAT PATIENT WOULD BENEFIT FROM LTC PLACEMENT AND CONTINUED PT SERVICES TO FACILITATE HIGHEST LEVEL OF FUNCTION PRIOR TO RETURNING HOME. WE ARE IN AGREEMENT AND WILL DISCUSS WITH PATIENT AND FAMILY. OTHERWISE, WE WILL CONTINUE WITH CURRENT PLAN OF CARE. WE WILL FOLLOW-UP WITH AM LABS AND CHEST XRAY AND CONTINUE TO MONITOR. TIME SPENT ON CLINICAL ASSESSMENT, REVIWING LABS AND IMAGING, DECISION MAKING, AND DOCUMENTATION GREATER THAN 45 MINUTES. - Past Medical Family Social History Past Med/Fam/Surg Hx: No changes since H&P Allergies: Allergies aspirin Allergy (Verified 12/02/21 15:35) - Review of Systems ROS: No change since H&P - Vital Signs and I&O's Vital Signs: Temperature 98.3 F Pulse Rate 60 Respiratory Rate 27 Blood Pressure [Left Arm] 143/78 Blood Pressure 131/60 O2 Sat by Pulse Oximetry 94 Intake and Output: Intake & Output 12/02/21 12/03/21 12/04/21 12/05/21 11:59 11:59 11:59 11:59 Intake Total 960 / 960 2798 / 2798 2923 / 2923 Output Total 1100 / 1100 800 / 800 525 / 525 Balance -140 / -140 1997 2398 / 2398 - Physical Exam Oriented: Person, Place Eyes: Normal Ear: Normal Nose: Normal Throat: Normal, Other (LEFT SIDE NECK SWOLLEN ) Respiratory: Generalized, Diminished Cardiovascular: Normal : Normal Auscultation: Bowel Sounds: Normal Palpation: Normal Tenderness: Normal Skin: Decreased Turgur Musculoskeletal: Normal Psychiatric: Normal Mood Description: Calm Affect: Normal Speech Pattern: Clear - Laboratory and Diagnostics Result Diagrams: 12/05/21 04:35 12/05/21 04:35 Labs: Laboratory WBC 4.2 X10^3/uL (3.6-10.0) 12/05/21 04:35 RBC 3.57 X10^6/uL (3.5-5.4) 12/05/21 04:35 Hgb 10.7 g/dL (12.0-16.0) L 12/05/21 04:35 Hct 31.2 % (36.0-47.0) L 12/05/21 04:35 MCV 87.5 fL (80.0-100.0) 12/05/21 04:35 MCH 30.0 pg (27.0-34.0) 12/05/21 04:35 MCHC 34.3 g/dL (33.0-35.0) 12/05/21 04:35 RDW 15.1 % (11.6-16.5) 12/05/21 04:35 Plt Count 130 X10^3/uL (150.0-450.0) L 12/05/21 04:35 MPV 9.9 fL (7.4-11.0) 12/05/21 04:35 Neut % (Auto) 55.6 % (42.0-75.0) 12/05/21 04:35 Lymph % (Auto) 24.9 % (21.0-51.0) 12/05/21 04:35 [place] % (Auto) 13.3 % (0.0-13.0) H 12/05/21 04:35 Eos % (Auto) 4.8 % (0.9-2.9) H 12/05/21 04:35 Baso % (Auto) 1.4 % (0.2-1.0) H 12/05/21 04:35 Neut # (Auto) 2.3 x10^3/uL (2.2-4.8) 12/05/21 04:35 Lymph # (Auto) 1.0 X10^3/uL (1.3-2.9) L 12/05/21 04:35 [place] # (Auto) 0.6 x10^3/uL (0.3-0.8) 12/05/21 04:35 Eos # (Auto) 0.2 x10^3/uL (0.0-0.2) 12/05/21 04:35 Baso # (Auto) 0.1 X10^3/uL (0.0-0.1) 12/05/21 04:35 Absolute Nucleated RBC 0.1 /100WBC 12/05/21 04:35 D-Dimer 1.79 ug/ml (0.0-0.57) H 12/03/21 04:29 Sodium 142 mmol/L (136-145) 12/05/21 04:35 Corrected Sodium TNP 12/05/21 04:35 Potassium 3.4 mmol/L (3.5-5.1) L 12/05/21 04:35 Chloride 108 mmol/L (98-107) H 12/05/21 04:35 Carbon Dioxide 27.5 mmol/L (21-32) 12/05/21 04:35 BUN 3 mg/dL (7-18) L 12/05/21 04:35 Creatinine 0.62 mg/dL (0.55-1.02) 12/05/21 04:35 Est GFR (MDRD) Af Amer > 60 (>60) 12/05/21 04:35 Est GFR (MDRD) Non-Af > 60 (>60) 12/05/21 04:35 Glucose 79 mg/dL (65-99) 12/05/21 04:35 Calcium 8.4 mg/dL (8.5-10.1) L 12/05/21 04:35 Corrected Calcium 9.4 mg/dL (8.5-10.1) 12/05/21 04:35 Magnesium 1.9 mg/dL (1.7-2.9) 12/05/21 04:35 Total Bilirubin 0.40 mg/dL (0.2-1.0) 12/05/21 04:35 AST 18 Units/L (15-37) 12/05/21 04:35 ALT 10 Units/L (12-78) L 12/05/21 04:35 Alkaline Phosphatase 97 Units/L (46-116) 12/05/21 04:35 Creatine Kinase 25 Units/L (26-192) L 12/03/21 04:29 Troponin I High Sens 32.1 ng/L (4.0-60.0) 12/03/21 04:29 C-Reactive Protein 2.50 mg/L (0-3.0) 12/05/21 04:35 B-Natriuretic Peptide 516 pg/mL (0-79) H* 12/05/21 04:35 Total Protein 6.3 g/dL (6.4-8.2) L 12/05/21 04:35 Albumin 2.7 g/dL (3.4-5.0) L 12/05/21 04:35 Globulin 3.6 g/dL (2.5-4.5) 12/05/21 04:35 Albumin/Globulin Ratio 0.8 Ratio (1.1-2.1) L 12/05/21 04:35 Specimen Type Clean catch urine 12/02/21 16:48 Urine Color Yellow (YELLOW) 12/02/21 16:48 Urine Appearance Slightly hazy (CLEAR) 12/02/21 16:48 Urine pH 6.0 (5.0 - 8.0) 12/02/21 16:48 Ur Specific [place] 1.025 (1.000-1.030) 12/02/21 16:48 Urine Protein 4+ (NEGATIVE) 12/02/21 16:48 Urine Glucose (UA) Negative (NEGATIVE) 12/02/21 16:48 Urine Ketones Negative (NEGATIVE) 12/02/21 16:48 Urine Blood 1+ (NEGATIVE) 12/02/21 16:48 Urine Nitrite Negative (NEGATIVE) 12/02/21 16:48 Urine Bilirubin Negative (NEGATIVE) 12/02/21 16:48 Urine Urobilinogen Normal (NORMAL) 12/02/21 16:48 Ur Leukocyte Esterase Negative (NEGATIVE) 12/02/21 16:48 Urine RBC 3-5 /HPF (0-3) A 12/02/21 16:48 Urine WBC None seen /HPF (0-5) 12/02/21 16:48 Ur Squamous Epith Cells Rare /HPF (NEGATIVE) 12/02/21 16:48 Amorphous Sediment 3+ /HPF (NEGATIVE) 12/02/21 16:48 Urine Bacteria Trace /HPF (NEGATIVE) 12/02/21 16:48 Hyaline Casts Few /LPF (NEGATIVE) 12/02/21 16:48 Granular Casts Moderate /LPF (NEGATIVE) 12/02/21 16:48 Urine Mucus Few /HPF (NEGATIVE) 12/02/21 16:48 Ur Culture Indicated? No/not indicated 12/02/21 16:48 Salicylates < 2.8 mg/dL (2.8-20) L 12/02/21 15:57 Urine Opiates Screen Negative (NEG=<300) 12/02/21 16:48 Urine Methadone Screen Negative (NEG=<300) 12/02/21 16:48 Acetaminophen 0.0 ug/mL (10-30) L 12/02/21 15:57 Ur Barbiturates Screen Negative (NEG=<200) 12/02/21 16:48 Ur Phencyclidine Scrn Negative (NEG=<25) 12/02/21 16:48 Ur Amphetamines Screen Negative (NEG=<1000) 12/02/21 16:48 U Benzodiazepines Scrn Positive (NEG=<200) A 12/02/21 16:48 Urine Cocaine Screen Negative (NEG=<300) 12/02/21 16:48 U Marijuana (THC) Screen Negative (NEG=<50) 12/02/21 16:48 Ethyl Alcohol mg/dL < 3 mg/dL (0-19.9) 12/02/21 15:57 SARS CoV-2 RNA Rapid WINTER Positive (NEGATIVE) A 12/02/21 17:40 - Plan (1) Acute metabolic encephalopathy Status: Acute Plan: SUPPLEMENTAL OXYGEN, NORMAL SALINE AT 80 ML/HR, THE POTASSIUM AND MAGNESIUM PROTOCOL, LEVAQUIN 500MG IV DAILY, DUONEBS QID, PULMICORT NEBS BID, VALIUM 5MG PO TID PRN, LOVENOX 40MG SC DAILY, NORCO 5/325MG PO Q6H PRN. 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
[2021-12-05] MEDS: MEGACE PO SCH ×2 (11:14→20:22)
[2021-12-05] MEDS: PROTONIX INJ 40 MG VIAL IVP SCH (11:14)
[2021-12-05] MEDS: PROzac PO SCH (11:14)
[2021-12-05] MEDS: SYNTHROID 25 mcg TAB PO SCH (11:14)
[2021-12-05] MEDS: COLACE CAP 100 MG PO SCH ×2 (11:14→20:23)
--- NOTE | 2021-12-05 11:56 | PCM.PROG ---
Progress Note - Progress Note for Day of Date of Exam: 12/05/21 - Subjective Subjective: WAS ADMITTED FOR TREATMENT OF ACUTE METABOLIC ENCEPHALOPATHY, PNEUMONIA DUE TO COVID-19, AND GENERALIZED WEAKNESS. SHE HAS A PMH OF DEMENTIA AND HAS RECENTLY HAD A NECK MASS REMOVED DUE TO SQUAMOUS CELL CARCINOMA. TODAY, SHE IS ALERT, LYING IN BED ON MORNING ROUNDS. SHE ANSWERS ALL QUESTIONS APPROPRIATELY AND FOLLOWS COMMANDS. SHE COMPLAINS OF INCREASED GENERALIZED PAIN THIS MORNING AND ALSO REPORTS INCREASED PAIN WHEN SWALLOWING. SINCE ADMISSION, PATIENT HAS NOT EXHIBITED ANY AGGRESSIVE OR COMBATIVE BEHAVIORS. ON EXAMINATION, SWELLING NOTED TO LEFT SIDE NECK. HEART IS REGULAR IN RATE AND RHYTHM. BILATERAL LUNGS ARE NOTED WITH DIMINISHED LUNG SOUNDS THROUGHOUT. ABDOMEN IS FLAT, SOFT, AND NON-TENDER WITH NORMAL BOWEL SOUNDS NOTED IN ALL QUADRANTS. NO UPPER OR LOWER EXTREMITY EDEMA NOTED. GOOD MOVEMENT NOTED TO ALL EXTREMITIES. HER VITALS THIS MORNING ARE: 98.3-20-69-94%-158/72. SHE IS CURRENTLY ON ROOM AIR. LABS WERE OBTAINED. WBC 4.2, RBC 3.57, HGB 10.7, HCT 31.2, PLT COUNT 130, SODIUM 142, POTASSIUM 3.4, BUN 3, CREATININE 0.62, CALCIUM 8.4, AST 18, ALT 10, ALK PHOS 97, CRP 2.50, BNP 516, TOTAL PROTEIN 6.3, ALBUMIN 2.7. SHE IS CURRENTLY RECEIVING NORMAL SALINE AT 80 ML/HR, THE POTASSIUM AND MAGNESIUM PROTOCOL, LEVAQUIN 500MG IV DAILY, DUONEBS QID, PULMICORT NEBS BID, VALIUM 5MG PO TID PRN, LOVENOX 40MG SC DAILY, NORCO 5/325MG PO Q6H PRN. TODAY, WE WILL INCREASE HER NORCO TO 7.5/325MG PO Q6H. WE WILL ALSO ADD TORADOL 30MG IV Q8H PRN AND PROTONIX 40MG IV DAILY. WE WILL CONSULT SPEECH THERAPY. PHYSICAL THERAPY REPORTS THAT PATIENT WOULD BENEFIT FROM LTC PLACEMENT AND CONTINUED PT SERVICES TO FACILITATE HIGHEST LEVEL OF FUNCTION PRIOR TO RETURNING HOME. WE ARE IN AGREEMENT AND CASE MANAGEMENT IS ARRANGING PLACEMENT. OTHERWISE, WE WILL CONTINUE WITH CURRENT PLAN OF CARE. WE WILL FOLLOW-UP WITH AM LABS AND CHEST XRAY AND CONTINUE TO MONITOR. TIME SPENT ON CLINICAL ASSESSMENT, REVIWING LABS AND IMAGING, DECISION MAKING, AND DOCUMENTATION GREATER THAN 45 MINUTES. - Past Medical Family Social History Past Med/Fam/Surg Hx: No changes since H&P Allergies: Allergies aspirin Allergy (Verified 12/02/21 15:35) - Review of Systems ROS: No change since H&P - Vital Signs and I&O's Vital Signs: Temperature 98.3 F Pulse Rate 67 Respiratory Rate 19 Blood Pressure [Left Arm] 143/78 Blood Pressure 126/65 O2 Sat by Pulse Oximetry 98 Intake and Output: Intake & Output 12/02/21 12/03/21 12/04/21 12/05/21 11:59 11:59 11:59 11:59 Intake Total 960 / 960 2798 / 2798 2923 / 2923 Output Total 1100 / 1100 800 / 800 525 / 525 Balance -140 / -140 1997 2398 / 2398 - Physical Exam Oriented: Person, Place Eyes: Normal Ear: Normal Nose: Normal Throat: Normal, Other (LEFT SIDE NECK SWOLLEN ) Respiratory: Generalized, Diminished Cardiovascular: Normal : Normal Auscultation: Bowel Sounds: Normal Palpation: Normal Tenderness: Normal Skin: Decreased Turgur Musculoskeletal: Normal Psychiatric: Normal Mood Description: Calm Affect: Normal Speech Pattern: Clear - Laboratory and Diagnostics Result Diagrams: 12/05/21 04:35 12/05/21 04:35 Labs: Laboratory WBC 4.2 X10^3/uL (3.6-10.0) 12/05/21 04:35 RBC 3.57 X10^6/uL (3.5-5.4) 12/05/21 04:35 Hgb 10.7 g/dL (12.0-16.0) L 12/05/21 04:35 Hct 31.2 % (36.0-47.0) L 12/05/21 04:35 MCV 87.5 fL (80.0-100.0) 12/05/21 04:35 MCH 30.0 pg (27.0-34.0) 12/05/21 04:35 MCHC 34.3 g/dL (33.0-35.0) 12/05/21 04:35 RDW 15.1 % (11.6-16.5) 12/05/21 04:35 Plt Count 130 X10^3/uL (150.0-450.0) L 12/05/21 04:35 MPV 9.9 fL (7.4-11.0) 12/05/21 04:35 Neut % (Auto) 55.6 % (42.0-75.0) 12/05/21 04:35 Lymph % (Auto) 24.9 % (21.0-51.0) 12/05/21 04:35 [place] % (Auto) 13.3 % (0.0-13.0) H 12/05/21 04:35 Eos % (Auto) 4.8 % (0.9-2.9) H 12/05/21 04:35 Baso % (Auto) 1.4 % (0.2-1.0) H 12/05/21 04:35 Neut # (Auto) 2.3 x10^3/uL (2.2-4.8) 12/05/21 04:35 Lymph # (Auto) 1.0 X10^3/uL (1.3-2.9) L 12/05/21 04:35 [place] # (Auto) 0.6 x10^3/uL (0.3-0.8) 12/05/21 04:35 Eos # (Auto) 0.2 x10^3/uL (0.0-0.2) 12/05/21 04:35 Baso # (Auto) 0.1 X10^3/uL (0.0-0.1) 12/05/21 04:35 Absolute Nucleated RBC 0.1 /100WBC 12/05/21 04:35 D-Dimer 1.79 ug/ml (0.0-0.57) H 12/03/21 04:29 Sodium 142 mmol/L (136-145) 12/05/21 04:35 Corrected Sodium TNP 12/05/21 04:35 Potassium 3.4 mmol/L (3.5-5.1) L 12/05/21 04:35 Chloride 108 mmol/L (98-107) H 12/05/21 04:35 Carbon Dioxide 27.5 mmol/L (21-32) 12/05/21 04:35 BUN 3 mg/dL (7-18) L 12/05/21 04:35 Creatinine 0.62 mg/dL (0.55-1.02) 12/05/21 04:35 Est GFR (MDRD) Af Amer > 60 (>60) 12/05/21 04:35 Est GFR (MDRD) Non-Af > 60 (>60) 12/05/21 04:35 Glucose 79 mg/dL (65-99) 12/05/21 04:35 Calcium 8.4 mg/dL (8.5-10.1) L 12/05/21 04:35 Corrected Calcium 9.4 mg/dL (8.5-10.1) 12/05/21 04:35 Magnesium 1.9 mg/dL (1.7-2.9) 12/05/21 04:35 Total Bilirubin 0.40 mg/dL (0.2-1.0) 12/05/21 04:35 AST 18 Units/L (15-37) 12/05/21 04:35 ALT 10 Units/L (12-78) L 12/05/21 04:35 Alkaline Phosphatase 97 Units/L (46-116) 12/05/21 04:35 Creatine Kinase 25 Units/L (26-192) L 12/03/21 04:29 Troponin I High Sens 32.1 ng/L (4.0-60.0) 12/03/21 04:29 C-Reactive Protein 2.50 mg/L (0-3.0) 12/05/21 04:35 B-Natriuretic Peptide 516 pg/mL (0-79) H* 12/05/21 04:35 Total Protein 6.3 g/dL (6.4-8.2) L 12/05/21 04:35 Albumin 2.7 g/dL (3.4-5.0) L 12/05/21 04:35 Globulin 3.6 g/dL (2.5-4.5) 12/05/21 04:35 Albumin/Globulin Ratio 0.8 Ratio (1.1-2.1) L 12/05/21 04:35 Specimen Type Clean catch urine 12/02/21 16:48 Urine Color Yellow (YELLOW) 12/02/21 16:48 Urine Appearance Slightly hazy (CLEAR) 12/02/21 16:48 Urine pH 6.0 (5.0 - 8.0) 12/02/21 16:48 Ur Specific [place] 1.025 (1.000-1.030) 12/02/21 16:48 Urine Protein 4+ (NEGATIVE) 12/02/21 16:48 Urine Glucose (UA) Negative (NEGATIVE) 12/02/21 16:48 Urine Ketones Negative (NEGATIVE) 12/02/21 16:48 Urine Blood 1+ (NEGATIVE) 12/02/21 16:48 Urine Nitrite Negative (NEGATIVE) 12/02/21 16:48 Urine Bilirubin Negative (NEGATIVE) 12/02/21 16:48 Urine Urobilinogen Normal (NORMAL) 12/02/21 16:48 Ur Leukocyte Esterase Negative (NEGATIVE) 12/02/21 16:48 Urine RBC 3-5 /HPF (0-3) A 12/02/21 16:48 Urine WBC None seen /HPF (0-5) 12/02/21 16:48 Ur Squamous Epith Cells Rare /HPF (NEGATIVE) 12/02/21 16:48 Amorphous Sediment 3+ /HPF (NEGATIVE) 12/02/21 16:48 Urine Bacteria Trace /HPF (NEGATIVE) 12/02/21 16:48 Hyaline Casts Few /LPF (NEGATIVE) 12/02/21 16:48 Granular Casts Moderate /LPF (NEGATIVE) 12/02/21 16:48 Urine Mucus Few /HPF (NEGATIVE) 12/02/21 16:48 Ur Culture Indicated? No/not indicated 12/02/21 16:48 Salicylates < 2.8 mg/dL (2.8-20) L 12/02/21 15:57 Urine Opiates Screen Negative (NEG=<300) 12/02/21 16:48 Urine Methadone Screen Negative (NEG=<300) 12/02/21 16:48 Acetaminophen 0.0 ug/mL (10-30) L 12/02/21 15:57 Ur Barbiturates Screen Negative (NEG=<200) 12/02/21 16:48 Ur Phencyclidine Scrn Negative (NEG=<25) 12/02/21 16:48 Ur Amphetamines Screen Negative (NEG=<1000) 12/02/21 16:48 U Benzodiazepines Scrn Positive (NEG=<200) A 12/02/21 16:48 Urine Cocaine Screen Negative (NEG=<300) 12/02/21 16:48 U Marijuana (THC) Screen Negative (NEG=<50) 12/02/21 16:48 Ethyl Alcohol mg/dL < 3 mg/dL (0-19.9) 12/02/21 15:57 SARS CoV-2 RNA Rapid W[place] Positive (NEGATIVE) A 12/02/21 17:40 - Plan (1) Acute metabolic encephalopathy Status: Acute Plan: SUPPLEMENTAL OXYGEN, NORMAL SALINE AT 20 ML/HR, THE POTASSIUM AND MAGNESIUM PROTOCOL, LEVAQUIN 500MG IV DAILY, DUONEBS QID, PULMICORT NEBS BID, VALIUM 5MG PO TID PRN, LOVENOX 40MG SC DAILY, NORCO 7.5/325MG PO Q6H PRN, TORADOL 30MG IV Q8H, PROTONIX 40MG IV DAILY. 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
[2021-12-05] MEDS: NORCO 7.5/325 MG TAB PO PRN (16:19)
[2021-12-06] MEDS: NORCO 7.5/325 MG TAB PO PRN ×3 (00:12→20:49)
[2021-12-06 05:39] LABS: EOSINOPHILS # (AUTO) 0.3 x10^3/uL (0.0-0.2); EOSINOPHILS % (AUTO) 6.4 % (0.9-2.9); HEMOGLOBIN 11.8 g/dL (12.0-16.0); LYMPHOCYTES # (AUTO) 1.1 X10^3/uL (1.3-2.9); LYMPHOCYTES % (AUTO) 23.4 % (21.0-51.0); MEAN CORPUSCULAR HEMOGLOBIN 29.8 pg (27.0-34.0); MEAN CORPUSCULAR HGB CONC 33.6 g/dL (33.0-35.0); MEAN CORPUSCULAR VOLUME 88.7 fL (80.0-100.0); MEAN PLATELET VOLUME 10.1 fL (7.4-11.0); MONOCYTES # (AUTO) 0.5 x10^3/uL (0.3-0.8); MONOCYTES % (AUTO) 10.2 % (0.0-13.0); NEUTROPHILS # (AUTO) 2.9 x10^3/uL (2.2-4.8); RED BLOOD COUNT 3.95 X10^6/uL (3.5-5.4); RED CELL DISTRIBUTION WIDTH 15.6 % (11.6-16.5); WHITE BLOOD COUNT 4.8 X10^3/uL (3.6-10.0)
[2021-12-06] MEDS: NS 1,000 ML IV 1,000 ML IV SCH ×3 (05:40→22:14)
[2021-12-06 06:00] LABS: ALANINE AMINOTRANSFERASE 14 Units/L (12-78); ALBUMIN 3.1 g/dL (3.4-5.0); ALKALINE PHOSPHATASE 107 Units/L (46-116); ASPARTATE AMINO TRANSFERASE 19 Units/L (15-37); BLOOD UREA NITROGEN 4 mg/dL (7-18); CALCIUM 8.5 mg/dL (8.5-10.1); CARBON DIOXIDE 28.9 mmol/L (21-32); CHLORIDE 106 mmol/L (98-107); COR CA(FOR HYPOALB) 9.2 mg/dL (8.5-10.1); CREATININE 0.73 mg/dL (0.55-1.02); MAGNESIUM 1.9 mg/dL (1.7-2.9); SODIUM 143 mmol/L (136-145); TOTAL PROTEIN 7.1 g/dL (6.4-8.2); eGFR NON BLACK RACES > 60 (>60)
--- NOTE | 2021-12-06 06:00 | RAD ---
PROCEDURE: Chest X-ray 1 View .HISTORY: Dyspnea.TECHNIQUE: AP view .COMPARISON: 12/05/2021.TECHNICAL QUALITY: Satisfactory .FINDINGS:Unchanged mild cardiomegaly with prominent right heart border.Mediastinum and hilar regions show no masses or lymphadenopathy .Normal central vascularity .No pulmonary consolidation, masses, pleural fluid, or pneumothorax. Increased interstitial markings both lung dwyer greatest on the right are unchanged consistent with fibrosis. Emphysematous changes bilaterally.No acute bony abnormality .IMPRESSION:1. COPD and interstitial fibrosis.2. Unchanged cardiomegaly.Electronically signed by: Ash Finn (Dec 06, 2021 05:58:22)
--- NOTE | 2021-12-06 08:41 | RAD ---
HISTORYSOBSTUDYAP chestCOMPARISONSeptember 2021, June 20, 2021FINDINGSThere is no change since 1 day earlier. Diffuse infiltrative interstitial prominence is noted in the right lung without evidence for airspace consolidation. Heart size is stable.IMPRESSIONNo change since 1 day prior. The interstitial process in the right lung is probably not chronic, and may represent a persisting inflammatory process. The lungs were much more clearly defined on an older exam from 06/20/2021. Continued follow-up indicated.Electronically signed by: HAWA PORTILLO (Dec 06, 2021 08:40:10)
[2021-12-06] MEDS: PULMICORT NEB TX 0.5 MG NEB SCH ×2 (09:10→20:50)
[2021-12-06] MEDS: DUONEB 0.5 MG/3 MG (3 mL) NEB SCH ×4 (09:10→20:50)
[2021-12-06] MEDS: LEVAQUIN PREMIX IV 500 MG 500 MG/100 ML BAG IV SCH (09:31)
[2021-12-06] MEDS: MEGACE PO SCH ×2 (09:32→20:48)
[2021-12-06] MEDS: COLACE CAP 100 MG PO SCH ×2 (09:32→20:48)
[2021-12-06] MEDS: PROTONIX INJ 40 MG VIAL IVP SCH (09:33)
[2021-12-06] MEDS: PROzac PO SCH (09:33)
[2021-12-06] MEDS: SYNTHROID 25 mcg TAB PO SCH (09:33)
[2021-12-06] MEDS: K-DUR TAB 20 MEQ PO PRN (09:33)
[2021-12-06] MEDS: MAGNESIUM SULFATE 1 GRAM/100 mL PREMIX 1 G/100 ML BAG IV PRN ×2 (09:34→12:00)
[2021-12-06] MEDS: LOVENOX INJ 40 MG SYR SC SCH (09:35)
[2021-12-06] MEDS: VALIUM PO PRN (18:00)
[2021-12-07] MEDS: TORADOL 30 MG VIAL IVP PRN (00:11)
--- NOTE | 2021-12-07 05:31 | RAD ---
PROCEDURE: Chest X-ray 1 View .HISTORY: Dyspnea.TECHNIQUE: AP view .COMPARISON: 12/06/2021.TECHNICAL QUALITY: Satisfactory .FINDINGS:Unchanged mild cardiomegaly.Mediastinum and hilar regions show no masses or lymphadenopathy .Normal central vascularity .No pulmonary consolidation, masses, pleural fluid, or pneumothorax. Unchanged hyper expansion and hyperlucency with some peripheral fibrosis.No acute bony abnormality .IMPRESSION:COPD and fibrosis with unchanged cardiomegaly.Electronically signed by: Ash Finn (Dec 07, 2021 05:29:01)
[2021-12-07 05:34] LABS: BASOPHILS # (AUTO) 0.1 X10^3/uL (0.0-0.1); BASOPHILS % (AUTO) 0.9 % (0.2-1.0); EOSINOPHILS # (AUTO) 0.3 x10^3/uL (0.0-0.2); EOSINOPHILS % (AUTO) 5.1 % (0.9-2.9); HEMOGLOBIN 10.5 g/dL (12.0-16.0); LYMPHOCYTES # (AUTO) 1.1 X10^3/uL (1.3-2.9); LYMPHOCYTES % (AUTO) 17.8 % (21.0-51.0); MEAN CORPUSCULAR HEMOGLOBIN 30.1 pg (27.0-34.0); MEAN CORPUSCULAR HGB CONC 33.8 g/dL (33.0-35.0); MEAN CORPUSCULAR VOLUME 88.8 fL (80.0-100.0); MEAN PLATELET VOLUME 10.3 fL (7.4-11.0); MONOCYTES # (AUTO) 0.6 x10^3/uL (0.3-0.8); MONOCYTES % (AUTO) 9.3 % (0.0-13.0); NEUTROPHILS % (AUTO) 66.9 % (42.0-75.0); RED BLOOD COUNT 3.49 X10^6/uL (3.5-5.4); RED CELL DISTRIBUTION WIDTH 15.8 % (11.6-16.5)
[2021-12-07 06:05] LABS: ALANINE AMINOTRANSFERASE 12 Units/L (12-78); ALBUMIN 2.7 g/dL (3.4-5.0); ALKALINE PHOSPHATASE 104 Units/L (46-116); ASPARTATE AMINO TRANSFERASE 17 Units/L (15-37); BLOOD UREA NITROGEN 9 mg/dL (7-18); CALCIUM 8.3 mg/dL (8.5-10.1); CARBON DIOXIDE 25.6 mmol/L (21-32); CHLORIDE 105 mmol/L (98-107); COR CA(FOR HYPOALB) 9.3 mg/dL (8.5-10.1); COR NA(FOR HYPERGLY) 140 mmol/L (136-145); CREATININE 0.84 mg/dL (0.55-1.02); SODIUM 139 mmol/L (136-145); TOTAL PROTEIN 6.2 g/dL (6.4-8.2); eGFR NON BLACK RACES > 60 (>60)
[2021-12-07] MEDS: NS 1,000 ML IV 1,000 ML IV SCH ×2 (08:15→21:16)
[2021-12-07] MEDS: DUONEB 0.5 MG/3 MG (3 mL) NEB SCH ×4 (08:15→20:36)
[2021-12-07] MEDS: PULMICORT NEB TX 0.5 MG NEB SCH ×2 (08:15→20:36)
[2021-12-07] MEDS: MEGACE PO SCH ×2 (09:38→20:33)
[2021-12-07] MEDS: PROzac PO SCH (09:38)
[2021-12-07] MEDS: LOVENOX INJ 40 MG SYR SC SCH (09:38)
[2021-12-07] MEDS: COLACE CAP 100 MG PO SCH ×2 (09:39→20:33)
[2021-12-07] MEDS: SYNTHROID 25 mcg TAB PO SCH (09:39)
[2021-12-07] MEDS: PROTONIX INJ 40 MG VIAL IVP SCH (09:39)
[2021-12-07] MEDS: LEVAQUIN PREMIX IV 500 MG 500 MG/100 ML BAG IV SCH (09:39)
[2021-12-07] MEDS: MAGIC MOUTHWASH (Orig. Formula) MT PRN (20:33)
[2021-12-07] MEDS: NORCO 7.5/325 MG TAB PO PRN (20:34)
[2021-12-08] MEDS: VALIUM PO PRN ×2 (00:47→13:15)
[2021-12-08 05:44] LABS: BASOPHILS % (AUTO) 0.8 % (0.2-1.0); EOSINOPHILS # (AUTO) 0.2 x10^3/uL (0.0-0.2); HEMATOCRIT 35.7 % (36.0-47.0); HEMOGLOBIN 12.1 g/dL (12.0-16.0); LYMPHOCYTES # (AUTO) 1.1 X10^3/uL (1.3-2.9); LYMPHOCYTES % (AUTO) 22.4 % (21.0-51.0); MEAN CORPUSCULAR HEMOGLOBIN 30.1 pg (27.0-34.0); MEAN CORPUSCULAR VOLUME 88.6 fL (80.0-100.0); MONOCYTES # (AUTO) 0.5 x10^3/uL (0.3-0.8); MONOCYTES % (AUTO) 10.4 % (0.0-13.0); NEUTROPHILS # (AUTO) 3.1 x10^3/uL (2.2-4.8); NEUTROPHILS % (AUTO) 61.4 % (42.0-75.0); RED BLOOD COUNT 4.03 X10^6/uL (3.5-5.4); RED CELL DISTRIBUTION WIDTH 15.8 % (11.6-16.5)
[2021-12-08 05:56] LABS: ALANINE AMINOTRANSFERASE 9 Units/L (12-78); ALBUMIN 3.1 g/dL (3.4-5.0); ALKALINE PHOSPHATASE 105 Units/L (46-116); ASPARTATE AMINO TRANSFERASE 16 Units/L (15-37); BLOOD UREA NITROGEN 7 mg/dL (7-18); CALCIUM 8.7 mg/dL (8.5-10.1); CARBON DIOXIDE 28.2 mmol/L (21-32); CHLORIDE 104 mmol/L (98-107); COR CA(FOR HYPOALB) 9.4 mg/dL (8.5-10.1); CREATININE 0.63 mg/dL (0.55-1.02); SODIUM 139 mmol/L (136-145); eGFR NON BLACK RACES > 60 (>60)
--- NOTE | 2021-12-08 06:46 | RAD ---
HISTORYCOVID-19 SOBSTUDYPortable AP chestCOMPARISONSeptember 2021FINDINGSNo change. Heart size is prominent and remains rotated into the right chest as before. There is no evidence for developing consolidation, edema, or pleural fluid.IMPRESSIONNo change or acute abnormality demonstrated.Electronically signed by: HAWA PORTILLO (Dec 08, 2021 06:44:52)
[2021-12-08] MEDS: DUONEB 0.5 MG/3 MG (3 mL) NEB SCH ×4 (08:45→20:34)
[2021-12-08] MEDS: PULMICORT NEB TX 0.5 MG NEB SCH ×2 (08:45→20:34)
[2021-12-08] MEDS: LEVAQUIN PREMIX IV 500 MG 500 MG/100 ML BAG IV SCH (08:55)
[2021-12-08] MEDS: LOVENOX INJ 40 MG SYR SC SCH (08:56)
[2021-12-08] MEDS: K-DUR TAB 20 MEQ PO PRN (08:56)
[2021-12-08] MEDS: MEGACE PO SCH ×2 (08:57→20:51)
[2021-12-08] MEDS: PROTONIX INJ 40 MG VIAL IVP SCH (08:57)
[2021-12-08] MEDS: COLACE CAP 100 MG PO SCH ×2 (08:57→20:50)
[2021-12-08] MEDS: PROzac PO SCH (08:58)
[2021-12-08] MEDS: SYNTHROID 25 mcg TAB PO SCH (09:30)
--- NOTE | 2021-12-08 12:40 | PCM.PROG ---
Progress Note - Progress Note for Day of Date of Exam: 12/08/21 - Subjective Subjective: WAS ADMITTED FOR TREATMENT OF ACUTE METABOLIC ENCEPHALOPATHY, PNEUMONIA DUE TO COVID-19, AND GENERALIZED WEAKNESS. SHE HAS A PMH OF DEMENTIA AND HAS RECENTLY HAD A NECK MASS REMOVED DUE TO SQUAMOUS CELL CARCINOMA. TODAY, SHE IS ALERT, LYING IN BED ON MORNING ROUNDS. SHE ANSWERS ALL QUESTIONS APPROPRIATELY AND FOLLOWS COMMANDS. PATIENT HAS NOT EXHIBITED ANY AGGRESSIVE OR COMBATIVE BEHAVIORS OVER THE WEEKEND. ON EXAMINATION, SWELLING NOTED TO LEFT SIDE NECK. HEART IS REGULAR IN RATE AND RHYTHM. BILATERAL LUNGS ARE NOTED WITH DIMINISHED LUNG SOUNDS THROUGHOUT. ABDOMEN IS FLAT, SOFT, AND NON-TENDER WITH NORMAL BOWEL SOUNDS NOTED IN ALL QUADRANTS. NO UPPER OR LOWER EXTREMITY EDEMA NOTED. GOOD MOVEMENT NOTED TO ALL EXTREMITIES. HER VITALS THIS MORNING ARE: 98.2-74-17-92%-120/58. SHE IS CURRENTLY ON ROOM AIR. LABS WERE OBTAINED. WBC 5.0, HGB 12.1, HCT 35.7, PLT COUNT 144, SODIUM 139, POTASSIUM 3.8, BUN 7, CREATININE 0.63, GLUCOSE 82, AST 16, ALT 9, ALK PHOS 105, CRP 4.00, BNP 286, TOTAL PROTEIN 7.0, ALBUMIN 3.1. SHE IS CURRENTLY RECEIVING NORMAL SALINE AT 80 ML/HR, THE POTASSIUM AND MAGNESIUM PROTOCOL, LEVAQUIN 500MG IV DAILY, DUONEBS QID, PULMICORT NEBS BID, VALIUM 5MG PO TID PRN, LOVENOX 40MG SC DAILY, NORCO 7.5/325MG PO Q6H PRN, TORADOL 30MG IV Q8H PRN, PROTONIX 40MG IV DAILY, MAGIC MOUTHWASH QID PRN. WE WILL CONSULT SPEECH THERAPY. PHYSICAL THERAPY REPORTS THAT PATIENT WOULD BENEFIT FROM LTC PLACEMENT AND CONTINUED PT SERVICES TO FACILITATE HIGHEST LEVEL OF FUNCTION PRIOR TO RETURNING HOME. WE ARE IN AGREEMENT AND CASE MANAGEMENT IS ARRANGING PLACEMENT. OTHERWISE, WE WILL CONTINUE WITH CURRENT PLAN OF CARE. WE WILL FOLLOW-UP WITH AM LABS AND CHEST XRAY AND CONTINUE TO MONITOR. TIME SPENT ON CLINICAL ASSESSMENT, REVIWING LABS AND IMAGING, DECISION MAKING, AND DOCUMENTATION GREATER THAN 45 MINUTES. - Past Medical Family Social History Past Med/Fam/Surg Hx: No changes since H&P Allergies: Allergies aspirin Allergy (Verified 12/02/21 15:35) - Review of Systems ROS: No change since H&P - Vital Signs and I&O's Vital Signs: Temperature 98.2 F Pulse Rate 74 Respiratory Rate 17 Blood Pressure [Left Arm] 143/78 Blood Pressure 120/58 O2 Sat by Pulse Oximetry 92 Intake and Output: Intake & Output 12/06/21 12/07/21 12/08/21 12/09/21 11:59 11:59 11:59 11:59 Intake Total 1091 / 1091 640 / 640 970 / 970 Output Total 0 / 0 Balance 1091 / 1091 640 / 640 970 / 970 - Physical Exam Oriented: Person, Place Eyes: Normal Ear: Normal Nose: Normal Throat: Normal, Other (LEFT SIDE NECK SWOLLEN ) Respiratory: Generalized, Diminished Cardiovascular: Normal : Normal Auscultation: Bowel Sounds: Normal Tenderness: Normal Skin: Decreased Turgur Musculoskeletal: Normal Psychiatric: Normal Mood Description: Calm Affect: Normal Speech Pattern: Clear, Appropriate - Laboratory and Diagnostics Result Diagrams: 12/08/21 04:48 12/08/21 10:35 Labs: Laboratory WBC 5.0 X10^3/uL (3.6-10.0) 12/08/21 04:48 RBC 4.03 X10^6/uL (3.5-5.4) 12/08/21 04:48 Hgb 12.1 g/dL (12.0-16.0) 12/08/21 04:48 Hct 35.7 % (36.0-47.0) L 12/08/21 04:48 MCV 88.6 fL (80.0-100.0) 12/08/21 04:48 MCH 30.1 pg (27.0-34.0) 12/08/21 04:48 MCHC 34.0 g/dL (33.0-35.0) 12/08/21 04:48 RDW 15.8 % (11.6-16.5) 12/08/21 04:48 Plt Count 144 X10^3/uL (150.0-450.0) L 12/08/21 04:48 MPV 10.0 fL (7.4-11.0) 12/08/21 04:48 Neut % (Auto) 61.4 % (42.0-75.0) 12/08/21 04:48 Lymph % (Auto) 22.4 % (21.0-51.0) 12/08/21 04:48 [place] % (Auto) 10.4 % (0.0-13.0) 12/08/21 04:48 Eos % (Auto) 5.0 % (0.9-2.9) H 12/08/21 04:48 Baso % (Auto) 0.8 % (0.2-1.0) 12/08/21 04:48 Neut # (Auto) 3.1 x10^3/uL (2.2-4.8) 12/08/21 04:48 Lymph # (Auto) 1.1 X10^3/uL (1.3-2.9) L 12/08/21 04:48 [place] # (Auto) 0.5 x10^3/uL (0.3-0.8) 12/08/21 04:48 Eos # (Auto) 0.2 x10^3/uL (0.0-0.2) 12/08/21 04:48 Baso # (Auto) 0.0 X10^3/uL (0.0-0.1) 12/08/21 04:48 Absolute Nucleated RBC 0.0 /100WBC 12/08/21 04:48 D-Dimer 1.79 ug/ml (0.0-0.57) H 12/03/21 04:29 Sodium 139 mmol/L (136-145) 12/08/21 04:48 Corrected Sodium TNP 12/08/21 04:48 Potassium 4.8 mmol/L (3.5-5.1) 12/08/21 10:35 Chloride 104 mmol/L (98-107) 12/08/21 04:48 Carbon Dioxide 28.2 mmol/L (21-32) 12/08/21 04:48 BUN 7 mg/dL (7-18) 12/08/21 04:48 Creatinine 0.63 mg/dL (0.55-1.02) 12/08/21 04:48 Est GFR (MDRD) Af Amer > 60 (>60) 12/08/21 04:48 Est GFR (MDRD) Non-Af > 60 (>60) 12/08/21 04:48 Glucose 82 mg/dL (65-99) 12/08/21 04:48 Calcium 8.7 mg/dL (8.5-10.1) 12/08/21 04:48 Corrected Calcium 9.4 mg/dL (8.5-10.1) 12/08/21 04:48 Magnesium 2.5 mg/dL (1.7-2.9) 12/06/21 16:51 Total Bilirubin 0.60 mg/dL (0.2-1.0) 12/08/21 04:48 AST 16 Units/L (15-37) 12/08/21 04:48 ALT 9 Units/L (12-78) L 12/08/21 04:48 Alkaline Phosphatase 105 Units/L (46-116) 12/08/21 04:48 Creatine Kinase 25 Units/L (26-192) L 12/03/21 04:29 Troponin I High Sens 32.1 ng/L (4.0-60.0) 12/03/21 04:29 C-Reactive Protein 4.00 mg/L (0-3.0) H 12/08/21 04:48 B-Natriuretic Peptide 286 pg/mL (0-79) H 12/08/21 04:48 Total Protein 7.0 g/dL (6.4-8.2) 12/08/21 04:48 Albumin 3.1 g/dL (3.4-5.0) L 12/08/21 04:48 Globulin 3.9 g/dL (2.5-4.5) 12/08/21 04:48 Albumin/Globulin Ratio 0.8 Ratio (1.1-2.1) L 12/08/21 04:48 Specimen Type Clean catch urine 12/02/21 16:48 Urine Color Yellow (YELLOW) 12/02/21 16:48 Urine Appearance Slightly hazy (CLEAR) 12/02/21 16:48 Urine pH 6.0 (5.0 - 8.0) 12/02/21 16:48 Ur Specific [place] 1.025 (1.000-1.030) 12/02/21 16:48 Urine Protein 4+ (NEGATIVE) 12/02/21 16:48 Urine Glucose (UA) Negative (NEGATIVE) 12/02/21 16:48 Urine Ketones Negative (NEGATIVE) 12/02/21 16:48 Urine Blood 1+ (NEGATIVE) 12/02/21 16:48 Urine Nitrite Negative (NEGATIVE) 12/02/21 16:48 Urine Bilirubin Negative (NEGATIVE) 12/02/21 16:48 Urine Urobilinogen Normal (NORMAL) 12/02/21 16:48 Ur Leukocyte Esterase Negative (NEGATIVE) 12/02/21 16:48 Urine RBC 3-5 /HPF (0-3) A 12/02/21 16:48 Urine WBC None seen /HPF (0-5) 12/02/21 16:48 Ur Squamous Epith Cells Rare /HPF (NEGATIVE) 12/02/21 16:48 Amorphous Sediment 3+ /HPF (NEGATIVE) 12/02/21 16:48 Urine Bacteria Trace /HPF (NEGATIVE) 12/02/21 16:48 Hyaline Casts Few /LPF (NEGATIVE) 12/02/21 16:48 Granular Casts Moderate /LPF (NEGATIVE) 12/02/21 16:48 Urine Mucus Few /HPF (NEGATIVE) 12/02/21 16:48 Ur Culture Indicated? No/not indicated 12/02/21 16:48 Salicylates < 2.8 mg/dL (2.8-20) L 12/02/21 15:57 Urine Opiates Screen Negative (NEG=<300) 12/02/21 16:48 Urine Methadone Screen Negative (NEG=<300) 12/02/21 16:48 Acetaminophen 0.0 ug/mL (10-30) L 12/02/21 15:57 Ur Barbiturates Screen Negative (NEG=<200) 12/02/21 16:48 Ur Phencyclidine Scrn Negative (NEG=<25) 12/02/21 16:48 Ur Amphetamines Screen Negative (NEG=<1000) 12/02/21 16:48 U Benzodiazepines Scrn Positive (NEG=<200) A 12/02/21 16:48 Urine Cocaine Screen Negative (NEG=<300) 12/02/21 16:48 U Marijuana (THC) Screen Negative (NEG=<50) 12/02/21 16:48 Ethyl Alcohol mg/dL < 3 mg/dL (0-19.9) 12/02/21 15:57 SARS CoV-2 RNA Rapid WINTER Positive (NEGATIVE) A 12/02/21 17:40 - Plan (1) Acute metabolic encephalopathy Status: Acute Plan: SUPPLEMENTAL OXYGEN, NORMAL SALINE AT 20 ML/HR, THE POTASSIUM AND MAGNESIUM PROTOCOL, LEVAQUIN 500MG IV DAILY, DUONEBS QID, PULMICORT NEBS BID, VALIUM 5MG PO TID PRN, LOVENOX 40MG SC DAILY, NORCO 7.5/325MG PO Q6H PRN, TORADOL 30MG IV Q8H, PROTONIX 40MG IV DAILY. 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
[2021-12-08] MEDS: NORCO 7.5/325 MG TAB PO PRN ×2 (13:15→20:54)
[2021-12-08] MEDS: NS 1,000 ML IV 1,000 ML IV SCH ×2 (14:18→22:44)
[2021-12-08] MEDS: MAGIC MOUTHWASH (Orig. Formula) MT PRN (20:52)
[2021-12-09] MEDS: VALIUM PO PRN ×2 (02:03→14:06)
[2021-12-09] MEDS: NORCO 7.5/325 MG TAB PO PRN (07:21)
[2021-12-09] MEDS: PULMICORT NEB TX 0.5 MG NEB SCH ×2 (08:12→20:45)
[2021-12-09] MEDS: DUONEB 0.5 MG/3 MG (3 mL) NEB SCH ×4 (08:12→20:45)
[2021-12-09] MEDS: COLACE CAP 100 MG PO SCH ×2 (08:28→21:30)
[2021-12-09] MEDS: LEVAQUIN PREMIX IV 500 MG 500 MG/100 ML BAG IV SCH (08:28)
[2021-12-09] MEDS: LOVENOX INJ 40 MG SYR SC SCH (08:28)
[2021-12-09] MEDS: PROTONIX INJ 40 MG VIAL IVP SCH (08:29)
[2021-12-09] MEDS: SYNTHROID 25 mcg TAB PO SCH (08:29)
[2021-12-09] MEDS: MEGACE PO SCH ×2 (08:29→21:30)
[2021-12-09] MEDS: PROzac PO SCH (08:29)
[2021-12-09] MEDS: NS 1,000 ML IV 1,000 ML IV SCH ×2 (10:20→23:00)
[2021-12-10] MEDS: VALIUM PO PRN (02:09)
[2021-12-10] MEDS: NS 1,000 ML IV 1,000 ML IV SCH ×2 (02:30→11:39)
[2021-12-10 05:38] LABS: BASOPHILS # (AUTO) 0.1 X10^3/uL (0.0-0.1); BASOPHILS % (AUTO) 0.9 % (0.2-1.0); EOSINOPHILS # (AUTO) 0.2 x10^3/uL (0.0-0.2); EOSINOPHILS % (AUTO) 3.5 % (0.9-2.9); HEMATOCRIT 35.4 % (36.0-47.0); LYMPHOCYTES # (AUTO) 1.2 X10^3/uL (1.3-2.9); MEAN CORPUSCULAR HEMOGLOBIN 30.1 pg (27.0-34.0); MEAN CORPUSCULAR HGB CONC 33.8 g/dL (33.0-35.0); MEAN PLATELET VOLUME 10.3 fL (7.4-11.0); MONOCYTES # (AUTO) 0.7 x10^3/uL (0.3-0.8); NEUTROPHILS # (AUTO) 3.5 x10^3/uL (2.2-4.8); NEUTROPHILS % (AUTO) 61.6 % (42.0-75.0); RED BLOOD COUNT 3.97 X10^6/uL (3.5-5.4); RED CELL DISTRIBUTION WIDTH 15.6 % (11.6-16.5); WHITE BLOOD COUNT 5.7 X10^3/uL (3.6-10.0)
[2021-12-10 05:51] LABS: ALANINE AMINOTRANSFERASE 13 Units/L (12-78); ALKALINE PHOSPHATASE 94 Units/L (46-116); ASPARTATE AMINO TRANSFERASE 13 Units/L (15-37); BLOOD UREA NITROGEN 3 mg/dL (7-18); CALCIUM 8.7 mg/dL (8.5-10.1); CHLORIDE 107 mmol/L (98-107); COR CA(FOR HYPOALB) 9.5 mg/dL (8.5-10.1); CREATININE 0.62 mg/dL (0.55-1.02); SODIUM 141 mmol/L (136-145); TOTAL PROTEIN 6.7 g/dL (6.4-8.2); eGFR NON BLACK RACES > 60 (>60)
[2021-12-10] MEDS: KLOR-CON PO PRN (06:11)
[2021-12-10] MEDS: DUONEB 0.5 MG/3 MG (3 mL) NEB SCH ×4 (08:20→20:30)
[2021-12-10] MEDS: PULMICORT NEB TX 0.5 MG NEB SCH ×2 (08:20→20:30)
[2021-12-10] MEDS: COLACE CAP 100 MG PO SCH ×2 (08:50→20:15)
[2021-12-10] MEDS: LEVAQUIN PREMIX IV 500 MG 500 MG/100 ML BAG IV SCH (08:50)
[2021-12-10] MEDS: LOVENOX INJ 40 MG SYR SC SCH (08:50)
[2021-12-10] MEDS: PROzac PO SCH (08:51)
[2021-12-10] MEDS: SYNTHROID 25 mcg TAB PO SCH (08:51)
[2021-12-10] MEDS: PROTONIX INJ 40 MG VIAL IVP SCH (08:51)
[2021-12-10] MEDS: MEGACE PO SCH ×2 (08:51→20:15)
--- NOTE | 2021-12-10 12:23 | PCM.PROG ---
Progress Note - Progress Note for Day of Date of Exam: 12/09/21 - Subjective Subjective: WAS ADMITTED FOR TREATMENT OF ACUTE METABOLIC ENCEPHALOPATHY, PNEUMONIA DUE TO COVID-19, AND GENERALIZED WEAKNESS. SHE HAS A PMH OF DEMENTIA AND HAS RECENTLY HAD A NECK MASS REMOVED DUE TO SQUAMOUS CELL CARCINOMA. TODAY, SHE IS ALERT, LYING IN BED ON MORNING ROUNDS. SHE ANSWERS ALL QUESTIONS APPROPRIATELY AND FOLLOWS COMMANDS. PATIENT HAS NOT EXHIBITED ANY AGGRESSIVE OR COMBATIVE BEHAVIORS OVER THIS MORNING OR THROUGHOUT THE NIGHT. ON EXAMINATION, SWELLING NOTED TO LEFT SIDE NECK. HEART IS REGULAR IN RATE AND RHYTHM. BILATERAL LUNGS ARE NOTED WITH DIMINISHED LUNG SOUNDS THROUGHOUT. ABDOMEN IS FLAT, SOFT, AND NON-TENDER WITH NORMAL BOWEL SOUNDS NOTED IN ALL QUADRANTS. NO UPPER OR LOWER EXTREMITY EDEMA NOTED. GOOD MOVEMENT NOTED TO ALL EXTREMITIES. HER VITALS THIS MORNING ARE: 99.6-76-18-96%-139/64. SHE IS CURRENTLY RECEIVING NORMAL SALINE AT 80 ML/HR, THE POTASSIUM AND MAGNESIUM PROTOCOL, LEVAQUIN 500MG IV DAILY, DUONEBS QID, PULMICORT NEBS BID, VALIUM 5MG PO TID PRN, LOVENOX 40MG SC DAILY, NORCO 7.5/325MG PO Q6H PRN, TORADOL 30MG IV Q8H PRN, PROTONIX 40MG IV DAILY, MAGIC MOUTHWASH QID PRN. WE WILL CONSULT SPEECH THERAPY. PHYSICAL THERAPY REPORTS THAT PATIENT WOULD BENEFIT FROM LTC PLACEMENT AND CONTINUED PT SERVICES TO FACILITATE HIGHEST LEVEL OF FUNCTION PRIOR TO RETURNING HOME. WE ARE IN AGREEMENT AND CASE MANAGEMENT IS ARRANGING PLACEMENT. OTHERWISE, WE WILL CONTINUE WITH CURRENT PLAN OF CARE. PT WILL CONTINUE TO WORK WITH HER. WE WILL FOLLOW-UP WITH AM LABS AND CHEST XRAY AND CONTINUE TO MONITOR. TIME SPENT ON CLINICAL ASSESSMENT, REVIWING LABS AND IMAGING, DECISION MAKING, AND DOCUMENTATION GREATER THAN 45 MINUTES. - Past Medical Family Social History Past Med/Fam/Surg Hx: No changes since H&P Allergies: Allergies aspirin Allergy (Verified 12/02/21 15:35) - Review of Systems ROS: No change since H&P - Vital Signs and I&O's Vital Signs: Temperature 98.6 F Pulse Rate 84 Respiratory Rate 18 Blood Pressure [Left Arm] 143/78 Blood Pressure 137/60 O2 Sat by Pulse Oximetry 97 Intake and Output: Intake & Output 12/08/21 12/09/21 12/10/2115/22 11:59 11:59 11:59 11:59 Intake Total 970 / 970 2055 Balance 970 / 970 2055 - Physical Exam Oriented: Person, Place Eyes: Normal Ear: Normal Nose: Normal Throat: Normal, Other (LEFT SIDE NECK SWOLLEN ) Respiratory: Generalized, Diminished Cardiovascular: Normal : Normal Auscultation: Bowel Sounds: Normal Tenderness: Normal Skin: Decreased Turgur Musculoskeletal: Normal Psychiatric: Normal Mood Description: Calm Affect: Normal Speech Pattern: Clear, Appropriate - Laboratory and Diagnostics Result Diagrams: 12/10/21 05:20 12/10/21 05:20 Labs: Laboratory WBC 5.7 X10^3/uL (3.6-10.0) 12/10/21 05:20 RBC 3.97 X10^6/uL (3.5-5.4) 12/10/21 05:20 Hgb 12.0 g/dL (12.0-16.0) 12/10/21 05:20 Hct 35.4 % (36.0-47.0) L 12/10/21 05:20 MCV 89.0 fL (80.0-100.0) 12/10/21 05:20 MCH 30.1 pg (27.0-34.0) 12/10/21 05:20 MCHC 33.8 g/dL (33.0-35.0) 12/10/21 05:20 RDW 15.6 % (11.6-16.5) 12/10/21 05:20 Plt Count 152 X10^3/uL (150.0-450.0) 12/10/21 05:20 MPV 10.3 fL (7.4-11.0) 12/10/21 05:20 Neut % (Auto) 61.6 % (42.0-75.0) 12/10/21 05:20 Lymph % (Auto) 21.0 % (21.0-51.0) 12/10/21 05:20 [place] % (Auto) 13.0 % (0.0-13.0) 12/10/21 05:20 Eos % (Auto) 3.5 % (0.9-2.9) H 12/10/21 05:20 Baso % (Auto) 0.9 % (0.2-1.0) 12/10/21 05:20 Neut # (Auto) 3.5 x10^3/uL (2.2-4.8) 12/10/21 05:20 Lymph # (Auto) 1.2 X10^3/uL (1.3-2.9) L 12/10/21 05:20 [place] # (Auto) 0.7 x10^3/uL (0.3-0.8) 12/10/21 05:20 Eos # (Auto) 0.2 x10^3/uL (0.0-0.2) 12/10/21 05:20 Baso # (Auto) 0.1 X10^3/uL (0.0-0.1) 12/10/21 05:20 Absolute Nucleated RBC 0.0 /100WBC 12/10/21 05:20 D-Dimer 1.79 ug/ml (0.0-0.57) H 12/03/21 04:29 Sodium 141 mmol/L (136-145) 12/10/21 05:20 Corrected Sodium TNP 12/10/21 05:20 Potassium 3.6 mmol/L (3.5-5.1) 12/10/21 05:20 Chloride 107 mmol/L (98-107) 12/10/21 05:20 Carbon Dioxide 26.0 mmol/L (21-32) 12/10/21 05:20 BUN 3 mg/dL (7-18) L 12/10/21 05:20 Creatinine 0.62 mg/dL (0.55-1.02) 12/10/21 05:20 Est GFR (MDRD) Af Amer > 60 (>60) 12/10/21 05:20 Est GFR (MDRD) Non-Af > 60 (>60) 12/10/21 05:20 Glucose 96 mg/dL (65-99) 12/10/21 05:20 Calcium 8.7 mg/dL (8.5-10.1) 12/10/21 05:20 Corrected Calcium 9.5 mg/dL (8.5-10.1) 12/10/21 05:20 Magnesium 1.8 mg/dL (1.7-2.9) 12/10/21 05:20 Total Bilirubin 0.50 mg/dL (0.2-1.0) 12/10/21 05:20 AST 13 Units/L (15-37) L 12/10/21 05:20 ALT 13 Units/L (12-78) 12/10/21 05:20 Alkaline Phosphatase 94 Units/L (46-116) 12/10/21 05:20 Creatine Kinase 25 Units/L (26-192) L 12/03/21 04:29 Troponin I High Sens 32.1 ng/L (4.0-60.0) 12/03/21 04:29 C-Reactive Protein 4.00 mg/L (0-3.0) H 12/08/21 04:48 B-Natriuretic Peptide 286 pg/mL (0-79) H 12/08/21 04:48 Total Protein 6.7 g/dL (6.4-8.2) 12/10/21 05:20 Albumin 3.0 g/dL (3.4-5.0) L 12/10/21 05:20 Globulin 3.7 g/dL (2.5-4.5) 12/10/21 05:20 Albumin/Globulin Ratio 0.8 Ratio (1.1-2.1) L 12/10/21 05:20 Specimen Type Clean catch urine 12/02/21 16:48 Urine Color Yellow (YELLOW) 12/02/21 16:48 Urine Appearance Slightly hazy (CLEAR) 12/02/21 16:48 Urine pH 6.0 (5.0 - 8.0) 12/02/21 16:48 Ur Specific [place] 1.025 (1.000-1.030) 12/02/21 16:48 Urine Protein 4+ (NEGATIVE) 12/02/21 16:48 Urine Glucose (UA) Negative (NEGATIVE) 12/02/21 16:48 Urine Ketones Negative (NEGATIVE) 12/02/21 16:48 Urine Blood 1+ (NEGATIVE) 12/02/21 16:48 Urine Nitrite Negative (NEGATIVE) 12/02/21 16:48 Urine Bilirubin Negative (NEGATIVE) 12/02/21 16:48 Urine Urobilinogen Normal (NORMAL) 12/02/21 16:48 Ur Leukocyte Esterase Negative (NEGATIVE) 12/02/21 16:48 Urine RBC 3-5 /HPF (0-3) A 12/02/21 16:48 Urine WBC None seen /HPF (0-5) 12/02/21 16:48 Ur Squamous Epith Cells Rare /HPF (NEGATIVE) 12/02/21 16:48 Amorphous Sediment 3+ /HPF (NEGATIVE) 12/02/21 16:48 Urine Bacteria Trace /HPF (NEGATIVE) 12/02/21 16:48 Hyaline Casts Few /LPF (NEGATIVE) 12/02/21 16:48 Granular Casts Moderate /LPF (NEGATIVE) 12/02/21 16:48 Urine Mucus Few /HPF (NEGATIVE) 12/02/21 16:48 Ur Culture Indicated? No/not indicated 12/02/21 16:48 Salicylates < 2.8 mg/dL (2.8-20) L 12/02/21 15:57 Urine Opiates Screen Negative (NEG=<300) 12/02/21 16:48 Urine Methadone Screen Negative (NEG=<300) 12/02/21 16:48 Acetaminophen 0.0 ug/mL (10-30) L 12/02/21 15:57 Ur Barbiturates Screen Negative (NEG=<200) 12/02/21 16:48 Ur Phencyclidine Scrn Negative (NEG=<25) 12/02/21 16:48 Ur Amphetamines Screen Negative (NEG=<1000) 12/02/21 16:48 U Benzodiazepines Scrn Positive (NEG=<200) A 12/02/21 16:48 Urine Cocaine Screen Negative (NEG=<300) 12/02/21 16:48 U Marijuana (THC) Screen Negative (NEG=<50) 12/02/21 16:48 Ethyl Alcohol mg/dL < 3 mg/dL (0-19.9) 12/02/21 15:57 SARS CoV-2 RNA Rapid WINTER Positive (NEGATIVE) A 12/02/21 17:40 - Plan (1) Acute metabolic encephalopathy Status: Acute Plan: SUPPLEMENTAL OXYGEN, NORMAL SALINE AT 20 ML/HR, THE POTASSIUM AND MAGNESIUM PROTOCOL, LEVAQUIN 500MG IV DAILY, DUONEBS QID, PULMICORT NEBS BID, VALIUM 5MG PO TID PRN, LOVENOX 40MG SC DAILY, NORCO 7.5/325MG PO Q6H PRN, TORADOL 30MG IV Q8H, PROTONIX 40MG IV DAILY. 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
[2021-12-11] MEDS: NS 1,000 ML IV 1,000 ML IV SCH ×2 (01:05→14:26)
[2021-12-11] MEDS: VALIUM PO PRN ×2 (01:05→20:39)
[2021-12-11 06:14] LABS: BASOPHILS % (AUTO) 0.8 % (0.2-1.0); EOSINOPHILS # (AUTO) 0.1 x10^3/uL (0.0-0.2); HEMATOCRIT 34.4 % (36.0-47.0); HEMOGLOBIN 11.6 g/dL (12.0-16.0); LYMPHOCYTES % (AUTO) 18.9 % (21.0-51.0); MEAN CORPUSCULAR HEMOGLOBIN 30.1 pg (27.0-34.0); MEAN CORPUSCULAR HGB CONC 33.8 g/dL (33.0-35.0); MEAN CORPUSCULAR VOLUME 89.1 fL (80.0-100.0); MEAN PLATELET VOLUME 10.5 fL (7.4-11.0); MONOCYTES # (AUTO) 0.6 x10^3/uL (0.3-0.8); MONOCYTES % (AUTO) 11.3 % (0.0-13.0); NEUTROPHILS # (AUTO) 3.6 x10^3/uL (2.2-4.8); RED BLOOD COUNT 3.86 X10^6/uL (3.5-5.4); RED CELL DISTRIBUTION WIDTH 15.8 % (11.6-16.5); WHITE BLOOD COUNT 5.4 X10^3/uL (3.6-10.0)
[2021-12-11 06:23] LABS: ALANINE AMINOTRANSFERASE 12 Units/L (12-78); ALKALINE PHOSPHATASE 92 Units/L (46-116); ASPARTATE AMINO TRANSFERASE 13 Units/L (15-37); BLOOD UREA NITROGEN 5 mg/dL (7-18); CALCIUM 8.5 mg/dL (8.5-10.1); CARBON DIOXIDE 24.7 mmol/L (21-32); CHLORIDE 106 mmol/L (98-107); COR CA(FOR HYPOALB) 9.3 mg/dL (8.5-10.1); CREATININE 0.62 mg/dL (0.55-1.02); SODIUM 140 mmol/L (136-145); TOTAL PROTEIN 6.8 g/dL (6.4-8.2); eGFR NON BLACK RACES > 60 (>60)
[2021-12-11] MEDS: PROzac PO SCH (08:33)
[2021-12-11] MEDS: SYNTHROID 25 mcg TAB PO SCH (08:33)
[2021-12-11] MEDS: COLACE CAP 100 MG PO SCH ×2 (08:33→20:38)
[2021-12-11] MEDS: LEVAQUIN PREMIX IV 500 MG 500 MG/100 ML BAG IV SCH (08:33)
[2021-12-11] MEDS: LOVENOX INJ 40 MG SYR SC SCH (08:33)
[2021-12-11] MEDS: MEGACE PO SCH ×2 (08:33→20:39)
[2021-12-11] MEDS: PROTONIX INJ 40 MG VIAL IVP SCH (08:34)
[2021-12-11] MEDS: PULMICORT NEB TX 0.5 MG NEB SCH ×2 (08:47→20:12)
[2021-12-11] MEDS: DUONEB 0.5 MG/3 MG (3 mL) NEB SCH ×4 (08:47→20:12)
[2021-12-11] MEDS: MAGNESIUM SULFATE 1 GRAM/100 mL PREMIX 1 G/100 ML BAG IV PRN ×2 (10:15→11:40)
--- NOTE | 2021-12-11 11:39 | PCM.PROG ---
Progress Note - Progress Note for Day of Date of Exam: 12/10/21 - Subjective Subjective: WAS ADMITTED FOR TREATMENT OF ACUTE METABOLIC ENCEPHALOPATHY, PNEUMONIA DUE TO COVID-19, AND GENERALIZED WEAKNESS. SHE HAS A PMH OF DEMENTIA AND HAS RECENTLY HAD A NECK MASS REMOVED DUE TO SQUAMOUS CELL CARCINOMA. TODAY, SHE IS ALERT, LYING IN BED ON MORNING ROUNDS. SHE ANSWERS ALL QUESTIONS APPROPRIATELY AND FOLLOWS COMMANDS. PATIENT HAS NOT EXHIBITED ANY AGGRESSIVE OR COMBATIVE BEHAVIORS THIS MORNING OR THROUGHOUT THE NIGHT. ON EXAMINATION, SHE CONTINUES WITH SLIGHT SWELLING TO THE LEFT SIDE OF THE NECK. HEART IS REGULAR IN RATE AND RHYTHM. BILATERAL LUNGS ARE NOTED WITH DIMINISHED LUNG SOUNDS THROUGHOUT. ABDOMEN IS FLAT, SOFT, AND NON-TENDER WITH NORMAL BOWEL SOUNDS NOTED IN ALL QUADRANTS. NO UPPER OR LOWER EXTREMITY EDEMA NOTED. GOOD MOVEMENT NOTED TO ALL EXTREMITIES. HER VITALS THIS MORNING ARE: 98.9-68-18-96%-139/64. LABS WERE OBTAINED. WBC 5.7, HGB 12.0, HCT 35.4, PLT COUNT 152, SODIUM 141, POTASSIUM 3.6, CHLORIDE 107, BUN 3, CREATININE 0.62, GLUCOSE 96, AST 13, ALT 13, ALK PHOS 94, TOTAL PROTEIN 6.7, ALBUMIN 3.0. SHE IS CURRENTLY RECEIVING NORMAL SALINE AT 80 ML/HR, THE POTASSIUM AND MAGNESIUM PROTOCOL, LEVAQUIN 500MG IV DAILY, DUONEBS QID, PULMICORT NEBS BID, VALIUM 5MG PO TID PRN, LOVENOX 40MG SC DAILY, NORCO 7.5/325MG PO Q6H PRN, TORADOL 30MG IV Q8H PRN, PROTONIX 40MG IV DAILY, MAGIC MOUTHWASH QID PRN. WE WILL CONSULT SPEECH THERAPY. PHYSICAL THERAPY CONTINUES TO REPORT THAT PATIENT WOULD BENEFIT FROM LTC PLACEMENT AND CONTINUED PT SERVICES TO FACILITATE HIGHEST LEVEL OF FUNCTION PRIOR TO RETURNING HOME. WE ARE IN AGREEMENT AND CASE MANAGEMENT IS ARRANGING PLACEMENT. PATIENT HAS BEEN COOPERATIVE WITH PHYSICAL THERAPY. OTHERWISE, WE WILL CONTINUE WITH CURRENT PLAN OF CARE. WE WILL FOLLOW-UP WITH AM LABS AND CHEST XRAY AND CONTINUE TO MONITOR. TIME SPENT ON CLINICAL ASSESSMENT, REVIWING LABS AND IMAGING, DECISION MAKING, AND DOCUMENTATION GREATER THAN 45 MINUTES. - Past Medical Family Social History Past Med/Fam/Surg Hx: No changes since H&P Allergies: Allergies aspirin Allergy (Verified 12/02/21 15:35) - Review of Systems ROS: No change since H&P - Vital Signs and I&O's Vital Signs: Temperature 98.6 F Pulse Rate 77 Respiratory Rate 18 Blood Pressure [Left Arm] 143/78 Blood Pressure 139/64 O2 Sat by Pulse Oximetry 95 Intake and Output: Intake & Output 12/08/21 12/09/21 12/10/21 12/11/21 11:59 11:59 11:59 11:59 Intake Total 970 / 970 2055 994 / 994 Balance 970 / 970 2055 994 / 994 - Physical Exam Oriented: Person, Place Eyes: Normal Ear: Normal Nose: Normal Throat: Normal, Other (LEFT SIDE NECK SWOLLEN ) Respiratory: Generalized, Diminished Cardiovascular: Normal : Normal Auscultation: Bowel Sounds: Normal Palpation: Normal Tenderness: Normal Skin: Decreased Turgur Musculoskeletal: Normal Psychiatric: Normal Mood Description: Calm Affect: Normal Speech Pattern: Clear, Appropriate - Laboratory and Diagnostics Result Diagrams: 12/11/21 05:12 12/11/21 05:12 Labs: Laboratory WBC 5.4 X10^3/uL (3.6-10.0) 12/11/21 05:12 RBC 3.86 X10^6/uL (3.5-5.4) 12/11/21 05:12 Hgb 11.6 g/dL (12.0-16.0) L 12/11/21 05:12 Hct 34.4 % (36.0-47.0) L 12/11/21 05:12 MCV 89.1 fL (80.0-100.0) 12/11/21 05:12 MCH 30.1 pg (27.0-34.0) 12/11/21 05:12 MCHC 33.8 g/dL (33.0-35.0) 12/11/21 05:12 RDW 15.8 % (11.6-16.5) 12/11/21 05:12 Plt Count 145 X10^3/uL (150.0-450.0) L 12/11/21 05:12 MPV 10.5 fL (7.4-11.0) 12/11/21 05:12 Neut % (Auto) 67.0 % (42.0-75.0) 12/11/21 05:12 Lymph % (Auto) 18.9 % (21.0-51.0) L 12/11/21 05:12 [place] % (Auto) 11.3 % (0.0-13.0) 12/11/21 05:12 Eos % (Auto) 2.0 % (0.9-2.9) 12/11/21 05:12 Baso % (Auto) 0.8 % (0.2-1.0) 12/11/21 05:12 Neut # (Auto) 3.6 x10^3/uL (2.2-4.8) 12/11/21 05:12 Lymph # (Auto) 1.0 X10^3/uL (1.3-2.9) L 12/11/21 05:12 [place] # (Auto) 0.6 x10^3/uL (0.3-0.8) 12/11/21 05:12 Eos # (Auto) 0.1 x10^3/uL (0.0-0.2) 12/11/21 05:12 Baso # (Auto) 0.0 X10^3/uL (0.0-0.1) 12/11/21 05:12 Absolute Nucleated RBC 0.0 /100WBC 12/11/21 05:12 D-Dimer 1.79 ug/ml (0.0-0.57) H 12/03/21 04:29 Sodium 140 mmol/L (136-145) 12/11/21 05:12 Corrected Sodium TNP 12/11/21 05:12 Potassium 3.5 mmol/L (3.5-5.1) 12/11/21 05:12 Chloride 106 mmol/L (98-107) 12/11/21 05:12 Carbon Dioxide 24.7 mmol/L (21-32) 12/11/21 05:12 BUN 5 mg/dL (7-18) L 12/11/21 05:12 Creatinine 0.62 mg/dL (0.55-1.02) 12/11/21 05:12 Est GFR (MDRD) Af Amer > 60 (>60) 12/11/21 05:12 Est GFR (MDRD) Non-Af > 60 (>60) 12/11/21 05:12 Glucose 95 mg/dL (65-99) 12/11/21 05:12 Calcium 8.5 mg/dL (8.5-10.1) 12/11/21 05:12 Corrected Calcium 9.3 mg/dL (8.5-10.1) 12/11/21 05:12 Magnesium 1.8 mg/dL (1.7-2.9) 12/10/21 05:20 Total Bilirubin 0.50 mg/dL (0.2-1.0) 12/11/21 05:12 AST 13 Units/L (15-37) L 12/11/21 05:12 ALT 12 Units/L (12-78) 12/11/21 05:12 Alkaline Phosphatase 92 Units/L (46-116) 12/11/21 05:12 Creatine Kinase 25 Units/L (26-192) L 12/03/21 04:29 Troponin I High Sens 32.1 ng/L (4.0-60.0) 12/03/21 04:29 C-Reactive Protein 4.00 mg/L (0-3.0) H 12/08/21 04:48 B-Natriuretic Peptide 286 pg/mL (0-79) H 12/08/21 04:48 Total Protein 6.8 g/dL (6.4-8.2) 12/11/21 05:12 Albumin 3.0 g/dL (3.4-5.0) L 12/11/21 05:12 Globulin 3.8 g/dL (2.5-4.5) 12/11/21 05:12 Albumin/Globulin Ratio 0.8 Ratio (1.1-2.1) L 12/11/21 05:12 Specimen Type Clean catch urine 12/02/21 16:48 Urine Color Yellow (YELLOW) 12/02/21 16:48 Urine Appearance Slightly hazy (CLEAR) 12/02/21 16:48 Urine pH 6.0 (5.0 - 8.0) 12/02/21 16:48 Ur Specific [place] 1.025 (1.000-1.030) 12/02/21 16:48 Urine Protein 4+ (NEGATIVE) 12/02/21 16:48 Urine Glucose (UA) Negative (NEGATIVE) 12/02/21 16:48 Urine Ketones Negative (NEGATIVE) 12/02/21 16:48 Urine Blood 1+ (NEGATIVE) 12/02/21 16:48 Urine Nitrite Negative (NEGATIVE) 12/02/21 16:48 Urine Bilirubin Negative (NEGATIVE) 12/02/21 16:48 Urine Urobilinogen Normal (NORMAL) 12/02/21 16:48 Ur Leukocyte Esterase Negative (NEGATIVE) 12/02/21 16:48 Urine RBC 3-5 /HPF (0-3) A 12/02/21 16:48 Urine WBC None seen /HPF (0-5) 12/02/21 16:48 Ur Squamous Epith Cells Rare /HPF (NEGATIVE) 12/02/21 16:48 Amorphous Sediment 3+ /HPF (NEGATIVE) 12/02/21 16:48 Urine Bacteria Trace /HPF (NEGATIVE) 12/02/21 16:48 Hyaline Casts Few /LPF (NEGATIVE) 12/02/21 16:48 Granular Casts Moderate /LPF (NEGATIVE) 12/02/21 16:48 Urine Mucus Few /HPF (NEGATIVE) 12/02/21 16:48 Ur Culture Indicated? No/not indicated 12/02/21 16:48 Salicylates < 2.8 mg/dL (2.8-20) L 12/02/21 15:57 Urine Opiates Screen Negative (NEG=<300) 12/02/21 16:48 Urine Methadone Screen Negative (NEG=<300) 12/02/21 16:48 Acetaminophen 0.0 ug/mL (10-30) L 12/02/21 15:57 Ur Barbiturates Screen Negative (NEG=<200) 12/02/21 16:48 Ur Phencyclidine Scrn Negative (NEG=<25) 12/02/21 16:48 Ur Amphetamines Screen Negative (NEG=<1000) 12/02/21 16:48 U Benzodiazepines Scrn Positive (NEG=<200) A 12/02/21 16:48 Urine Cocaine Screen Negative (NEG=<300) 12/02/21 16:48 U Marijuana (THC) Screen Negative (NEG=<50) 12/02/21 16:48 Ethyl Alcohol mg/dL < 3 mg/dL (0-19.9) 12/02/21 15:57 SARS CoV-2 RNA Rapid [place] Positive (NEGATIVE) A 12/02/21 17:40 - Plan (1) Acute metabolic encephalopathy Status: Acute Plan: SUPPLEMENTAL OXYGEN, NORMAL SALINE AT 20 ML/HR, THE POTASSIUM AND MAGNESIUM PROTOCOL, LEVAQUIN 500MG IV DAILY, DUONEBS QID, PULMICORT NEBS BID, VALIUM 5MG PO TID PRN, LOVENOX 40MG SC DAILY, NORCO 7.5/325MG PO Q6H PRN, TORADOL 30MG IV Q8H, PROTONIX 40MG IV DAILY. 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
[2021-12-11] MEDS: NORCO 7.5/325 MG TAB PO PRN (12:34)
--- NOTE | 2021-12-11 12:53 | PCM.PROG ---
Progress Note - Progress Note for Day of Date of Exam: 12/11/21 - Subjective Subjective: WAS ADMITTED FOR TREATMENT OF ACUTE METABOLIC ENCEPHALOPATHY, PNEUMONIA DUE TO COVID-19, AND GENERALIZED WEAKNESS. SHE HAS A PMH OF DEMENTIA AND HAS RECENTLY HAD A NECK MASS REMOVED DUE TO SQUAMOUS CELL CARCINOMA. TODAY, SHE IS ALERT, LYING IN BED ON MORNING ROUNDS. SHE ANSWERS ALL QUESTIONS APPROPRIATELY AND FOLLOWS COMMANDS. PATIENT HAS NOT EXHIBITED ANY AGGRESSIVE OR COMBATIVE BEHAVIORS THIS MORNING OR THROUGHOUT THE NIGHT. ON EXAMINATION, SHE CONTINUES WITH SLIGHT SWELLING TO THE LEFT SIDE OF THE NECK. HEART IS REGULAR IN RATE AND RHYTHM. BILATERAL LUNGS ARE NOTED WITH DIMINISHED LUNG SOUNDS THROUGHOUT. ABDOMEN IS FLAT, SOFT, AND NON-TENDER WITH NORMAL BOWEL SOUNDS NOTED IN ALL QUADRANTS. NO UPPER OR LOWER EXTREMITY EDEMA NOTED. GOOD MOVEMENT NOTED TO ALL EXTREMITIES. HER VITALS THIS MORNING ARE: 98.6-83-18-94%-139/64. LABS WERE OBTAINED. WBC 5.4, RBC 3.86, HGB 11.6, HCT 34.4, PLT COUNT 145, SODIUM 140, POTASSIUM 3.5, CHLORIDE 106, BUN 5, CREATININE 0.62, GLUCOSE 95, AST 13, ALT 12, ALK PHOS 92, TOTAL PROTEIN 6.8, ALBUMIN 3.0. SHE IS CURRENTLY RECEIVING NORMAL SALINE AT 80 ML/HR, THE POTASSIUM AND MAGNESIUM PROTOCOL, LEVAQUIN 500MG IV DAILY, DUONEBS QID, PULMICORT NEBS BID, VALIUM 5MG PO TID PRN, LOVENOX 40MG SC DAILY, NORCO 7.5/325MG PO Q6H PRN, TORADOL 30MG IV Q8H PRN, PROTONIX 40MG IV DAILY, MAGIC MOUTHWASH QID PRN. WE WILL CONSULT SPEECH THERAPY. PHYSICAL THERAPY CONTINUES TO REPORT THAT PATIENT WOULD BENEFIT FROM LTC PLACEMENT AND CONTINUED PT SERVICES TO FACILITATE HIGHEST LEVEL OF FUNCTION PRIOR TO RETURNING HOME. WE ARE IN AGREEMENT AND CASE Nikia MELARA IS ARRANGING PLACEMENT. PATIENT HAS BEEN COOPERATIVE WITH PHYSICAL THERAPY. OTHERWISE, WE WILL CONTINUE WITH CURRENT PLAN OF CARE. WE WILL FOLLOW- UP WITH AM LABS AND CHEST XRAY AND CONTINUE TO MONITOR. TIME SPENT ON CLINICAL ASSESSMENT, REVIWING LABS AND IMAGING, DECISION MAKING, AND DOCUMENTATION GREATER THAN 45 MINUTES. - Past Medical Family Social History Past Med/Fam/Surg Hx: No changes since H&P Allergies: Allergies aspirin Allergy (Verified 12/02/21 15:35) - Review of Systems ROS: No change since H&P - Vital Signs and I&O's Vital Signs: Temperature 99.0 F Pulse Rate 76 Respiratory Rate 18 Blood Pressure [Left Arm] 143/78 Blood Pressure 120/59 O2 Sat by Pulse Oximetry 95 Intake and Output: Intake & Output 12/09/21 12/10/21 12/11/21 12/12/21 11:59 11:59 11:59 11:59 Intake Total 2055 994 / 994 Balance 2055 994 / 994 - Physical Exam Oriented: Person, Place Eyes: Normal Ear: Normal Nose: Normal Throat: Normal, Other (LEFT SIDE NECK SWOLLEN ) Respiratory: Generalized, Diminished Cardiovascular: Normal : Normal Auscultation: Bowel Sounds: Normal Palpation: Normal Tenderness: Normal Skin: Decreased Turgur Musculoskeletal: Normal Psychiatric: Normal Mood Description: Calm Affect: Normal Speech Pattern: Clear, Appropriate - Laboratory and Diagnostics Result Diagrams: 12/11/21 05:12 12/11/21 05:12 Labs: Laboratory WBC 5.4 X10^3/uL (3.6-10.0) 12/11/21 05:12 RBC 3.86 X10^6/uL (3.5-5.4) 12/11/21 05:12 Hgb 11.6 g/dL (12.0-16.0) L 12/11/21 05:12 Hct 34.4 % (36.0-47.0) L 12/11/21 05:12 MCV 89.1 fL (80.0-100.0) 12/11/21 05:12 MCH 30.1 pg (27.0-34.0) 12/11/21 05:12 MCHC 33.8 g/dL (33.0-35.0) 12/11/21 05:12 RDW 15.8 % (11.6-16.5) 12/11/21 05:12 Plt Count 145 X10^3/uL (150.0-450.0) L 12/11/21 05:12 MPV 10.5 fL (7.4-11.0) 12/11/21 05:12 Neut % (Auto) 67.0 % (42.0-75.0) 12/11/21 05:12 Lymph % (Auto) 18.9 % (21.0-51.0) L 12/11/21 05:12 [place] % (Auto) 11.3 % (0.0-13.0) 12/11/21 05:12 Eos % (Auto) 2.0 % (0.9-2.9) 12/11/21 05:12 Baso % (Auto) 0.8 % (0.2-1.0) 12/11/21 05:12 Neut # (Auto) 3.6 x10^3/uL (2.2-4.8) 12/11/21 05:12 Lymph # (Auto) 1.0 X10^3/uL (1.3-2.9) L 12/11/21 05:12 [place] # (Auto) 0.6 x10^3/uL (0.3-0.8) 12/11/21 05:12 Eos # (Auto) 0.1 x10^3/uL (0.0-0.2) 12/11/21 05:12 Baso # (Auto) 0.0 X10^3/uL (0.0-0.1) 12/11/21 05:12 Absolute Nucleated RBC 0.0 /100WBC 12/11/21 05:12 D-Dimer 1.79 ug/ml (0.0-0.57) H 12/03/21 04:29 Sodium 140 mmol/L (136-145) 12/11/21 05:12 Corrected Sodium TNP 12/11/21 05:12 Potassium 3.5 mmol/L (3.5-5.1) 12/11/21 05:12 Chloride 106 mmol/L (98-107) 12/11/21 05:12 Carbon Dioxide 24.7 mmol/L (21-32) 12/11/21 05:12 BUN 5 mg/dL (7-18) L 12/11/21 05:12 Creatinine 0.62 mg/dL (0.55-1.02) 12/11/21 05:12 Est GFR (MDRD) Af Amer > 60 (>60) 12/11/21 05:12 Est GFR (MDRD) Non-Af > 60 (>60) 12/11/21 05:12 Glucose 95 mg/dL (65-99) 12/11/21 05:12 Calcium 8.5 mg/dL (8.5-10.1) 12/11/21 05:12 Corrected Calcium 9.3 mg/dL (8.5-10.1) 12/11/21 05:12 Magnesium 1.8 mg/dL (1.7-2.9) 12/10/21 05:20 Total Bilirubin 0.50 mg/dL (0.2-1.0) 12/11/21 05:12 AST 13 Units/L (15-37) L 12/11/21 05:12 ALT 12 Units/L (12-78) 12/11/21 05:12 Alkaline Phosphatase 92 Units/L (46-116) 12/11/21 05:12 Creatine Kinase 25 Units/L (26-192) L 12/03/21 04:29 Troponin I High Sens 32.1 ng/L (4.0-60.0) 12/03/21 04:29 C-Reactive Protein 4.00 mg/L (0-3.0) H 12/08/21 04:48 B-Natriuretic Peptide 286 pg/mL (0-79) H 12/08/21 04:48 Total Protein 6.8 g/dL (6.4-8.2) 12/11/21 05:12 Albumin 3.0 g/dL (3.4-5.0) L 12/11/21 05:12 Globulin 3.8 g/dL (2.5-4.5) 12/11/21 05:12 Albumin/Globulin Ratio 0.8 Ratio (1.1-2.1) L 12/11/21 05:12 Specimen Type Clean catch urine 12/02/21 16:48 Urine Color Yellow (YELLOW) 12/02/21 16:48 Urine Appearance Slightly hazy (CLEAR) 12/02/21 16:48 Urine pH 6.0 (5.0 - 8.0) 12/02/21 16:48 Ur Specific [place] 1.025 (1.000-1.030) 12/02/21 16:48 Urine Protein 4+ (NEGATIVE) 12/02/21 16:48 Urine Glucose (UA) Negative (NEGATIVE) 12/02/21 16:48 Urine Ketones Negative (NEGATIVE) 12/02/21 16:48 Urine Blood 1+ (NEGATIVE) 12/02/21 16:48 Urine Nitrite Negative (NEGATIVE) 12/02/21 16:48 Urine Bilirubin Negative (NEGATIVE) 12/02/21 16:48 Urine Urobilinogen Normal (NORMAL) 12/02/21 16:48 Ur Leukocyte Esterase Negative (NEGATIVE) 12/02/21 16:48 Urine RBC 3-5 /HPF (0-3) A 12/02/21 16:48 Urine WBC None seen /HPF (0-5) 12/02/21 16:48 Ur Squamous Epith Cells Rare /HPF (NEGATIVE) 12/02/21 16:48 Amorphous Sediment 3+ /HPF (NEGATIVE) 12/02/21 16:48 Urine Bacteria Trace /HPF (NEGATIVE) 12/02/21 16:48 Hyaline Casts Few /LPF (NEGATIVE) 12/02/21 16:48 Granular Casts Moderate /LPF (NEGATIVE) 12/02/21 16:48 Urine Mucus Few /HPF (NEGATIVE) 12/02/21 16:48 Ur Culture Indicated? No/not indicated 12/02/21 16:48 Salicylates < 2.8 mg/dL (2.8-20) L 12/02/21 15:57 Urine Opiates Screen Negative (NEG=<300) 12/02/21 16:48 Urine Methadone Screen Negative (NEG=<300) 12/02/21 16:48 Acetaminophen 0.0 ug/mL (10-30) L 12/02/21 15:57 Ur Barbiturates Screen Negative (NEG=<200) 12/02/21 16:48 Ur Phencyclidine Scrn Negative (NEG=<25) 12/02/21 16:48 Ur Amphetamines Screen Negative (NEG=<1000) 12/02/21 16:48 U Benzodiazepines Scrn Positive (NEG=<200) A 12/02/21 16:48 Urine Cocaine Screen Negative (NEG=<300) 12/02/21 16:48 U Marijuana (THC) Screen Negative (NEG=<50) 12/02/21 16:48 Ethyl Alcohol mg/dL < 3 mg/dL (0-19.9) 12/02/21 15:57 SARS CoV-2 RNA Rapid WINTER Positive (NEGATIVE) A 12/02/21 17:40 - Plan (1) Acute metabolic encephalopathy Status: Acute Plan: SUPPLEMENTAL OXYGEN, NORMAL SALINE AT 20 ML/HR, THE POTASSIUM AND MAGNESIUM PROTOCOL, LEVAQUIN 500MG IV DAILY, DUONEBS QID, PULMICORT NEBS BID, VALIUM 5MG PO TID PRN, LOVENOX 40MG SC DAILY, NORCO 7.5/325MG PO Q6H PRN, TOR ADOL 30MG IV Q8H, PROTONIX 40MG IV DAILY. 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
[2021-12-11] MEDS: K-RIDER 10 MEQ/NS 100 ML 10 MEQ/100 ML BAG IV PRN ×2 (13:15→14:36)
[2021-12-12] MEDS: NS 1,000 ML IV 1,000 ML IV SCH ×3 (03:30→18:32)
[2021-12-12] MEDS: NORCO 7.5/325 MG TAB PO PRN ×2 (03:31→13:29)
[2021-12-12 05:29] LABS: BASOPHILS % (AUTO) 0.8 % (0.2-1.0); EOSINOPHILS # (AUTO) 0.2 x10^3/uL (0.0-0.2); EOSINOPHILS % (AUTO) 3.2 % (0.9-2.9); HEMOGLOBIN 10.7 g/dL (12.0-16.0); LYMPHOCYTES % (AUTO) 19.2 % (21.0-51.0); MEAN CORPUSCULAR HEMOGLOBIN 29.8 pg (27.0-34.0); MEAN CORPUSCULAR HGB CONC 33.6 g/dL (33.0-35.0); MEAN CORPUSCULAR VOLUME 88.6 fL (80.0-100.0); MEAN PLATELET VOLUME 10.3 fL (7.4-11.0); MONOCYTES # (AUTO) 0.7 x10^3/uL (0.3-0.8); MONOCYTES % (AUTO) 13.7 % (0.0-13.0); NEUTROPHILS # (AUTO) 3.1 x10^3/uL (2.2-4.8); NEUTROPHILS % (AUTO) 63.1 % (42.0-75.0); RED BLOOD COUNT 3.61 X10^6/uL (3.5-5.4)
[2021-12-12 05:43] LABS: ALANINE AMINOTRANSFERASE 10 Units/L (12-78); ALBUMIN 2.9 g/dL (3.4-5.0); ALKALINE PHOSPHATASE 86 Units/L (46-116); ASPARTATE AMINO TRANSFERASE 12 Units/L (15-37); BLOOD UREA NITROGEN 3 mg/dL (7-18); CALCIUM 8.2 mg/dL (8.5-10.1); CARBON DIOXIDE 24.4 mmol/L (21-32); CHLORIDE 107 mmol/L (98-107); COR CA(FOR HYPOALB) 9.1 mg/dL (8.5-10.1); CREATININE 0.68 mg/dL (0.55-1.02); MAGNESIUM 1.9 mg/dL (1.7-2.9); SODIUM 139 mmol/L (136-145); TOTAL PROTEIN 6.5 g/dL (6.4-8.2); eGFR NON BLACK RACES > 60 (>60)
[2021-12-12] MEDS: PROzac PO SCH (08:36)
[2021-12-12] MEDS: PROTONIX INJ 40 MG VIAL IVP SCH (08:36)
[2021-12-12] MEDS: SYNTHROID 25 mcg TAB PO SCH (08:36)
[2021-12-12] MEDS: LEVAQUIN PREMIX IV 500 MG 500 MG/100 ML BAG IV SCH (08:37)
[2021-12-12] MEDS: COLACE CAP 100 MG PO SCH ×2 (08:37→20:14)
[2021-12-12] MEDS: MEGACE PO SCH ×2 (08:38→20:14)
[2021-12-12] MEDS: POTASSIUM CHLORIDE LIQ 20 MEQ UDC PO PRN (08:38)
[2021-12-12] MEDS: LOVENOX INJ 40 MG SYR SC SCH (08:48)
[2021-12-12] MEDS: DUONEB 0.5 MG/3 MG (3 mL) NEB SCH ×4 (09:16→21:04)
[2021-12-12] MEDS: PULMICORT NEB TX 0.5 MG NEB SCH ×2 (09:16→21:03)
[2021-12-12] MEDS: MAGNESIUM SULFATE 1 GRAM/100 mL PREMIX 1 G/100 ML BAG IV PRN ×2 (10:15→11:33)
--- NOTE | 2021-12-12 13:12 | PCM.PROG ---
Progress Note - Progress Note for Day of Date of Exam: 12/12/21 - Subjective Subjective: WAS ADMITTED FOR TREATMENT OF ACUTE METABOLIC ENCEPHALOPATHY, PNEUMONIA DUE TO COVID-19, AND GENERALIZED WEAKNESS. SHE HAS A PMH OF DEMENTIA AND HAS RECENTLY HAD A NECK MASS REMOVED DUE TO SQUAMOUS CELL CARCINOMA. TODAY, SHE IS ALERT, LYING IN BED ON MORNING ROUNDS. SHE ANSWERS ALL QUESTIONS APPROPRIATELY AND FOLLOWS COMMANDS. PATIENT HAS NOT EXHIBITED ANY AGGRESSIVE OR COMBATIVE BEHAVIORS THIS MORNING OR THROUGHOUT THE NIGHT. ON EXAMINATION, SHE CONTINUES WITH SLIGHT SWELLING TO THE LEFT SIDE OF THE NECK. HEART IS REGULAR IN RATE AND RHYTHM. BILATERAL LUNGS ARE NOTED WITH DIMINISHED LUNG SOUNDS THROUGHOUT. ABDOMEN IS FLAT, SOFT, AND NON-TENDER WITH NORMAL BOWEL SOUNDS NOTED IN ALL QUADRANTS. NO UPPER OR LOWER EXTREMITY EDEMA NOTED. GOOD MOVEMENT NOTED TO ALL EXTREMITIES. HER VITALS THIS MORNING ARE: 98.5-78-16-94%-131/61. LABS WERE OBTAINED. WBC 5.0, RBC 3.61, HGB 10.7, HCT 32.0, PLT COUNT 134, SODIUM 139, POTASSIUM 3.8, BUN 3, CREATININE 0.68, GLUCOSE 103, CALCIUM 8.2, MAGNESIUM 1.9, TOTAL BILI 0.40, AST 12, ALT 10, ALK PHOS 86, TOTAL PROTEIN 6.5, ALBUMIN 2.9. SHE IS CURRENTLY RECEIVING NORMAL SALINE AT 80 ML/HR, THE POTASSIUM AND MAGNESIUM PROTOCOL, LEVAQUIN 500MG IV DAILY, DUONEBS QID, PULMICORT NEBS BID, VALIUM 5MG PO TID PRN, LOVENOX 40MG SC DAILY, NORCO 7 .5/325MG PO Q6H PRN, TORADOL 30MG IV Q8H PRN, PROTONIX 40MG IV DAILY, MAGIC MOUTHWASH QID PRN. WE WILL CONSULT SPEECH THERAPY. PHYSICAL THERAPY CONTINUES TO REPORT THAT PATIENT WOULD BENEFIT FROM LTC PLACEMENT AND CONTINUED PT SERVICES TO FACILITATE HIGHEST LEVEL OF FUNCTION PRIOR TO RETURNING HOME. WE ARE IN AGREEMENT AND CASE MANAGEMENT IS ARRANGING PLACEMENT. PATIENT HAS BEEN COOPERATIVE WITH PHYSICAL THERAPY. OTHERWISE, WE WILL CONTINUE WITH CURRENT PLAN OF CARE. WE WILL FOLLOW-UP WITH AM LABS AND CHEST XRAY AND CONTINUE TO MONITOR. TIME SPENT ON CLINICAL ASSESSMENT, REVIWING LABS AND IMAGING, DECISION MAKING, AND DOCUMENTATION GREATER THAN 45 MINUTES. - Past Medical Family Social History Past Med/Fam/Surg Hx: No changes since H&P Allergies: Allergies aspirin Allergy (Verified 12/02/21 15:35) - Review of Systems ROS: No change since H&P - Vital Signs and I&O's Vital Signs: Temperature 98.7 F Pulse Rate 81 Respiratory Rate 18 Blood Pressure [Left Arm] 143/78 Blood Pressure 126/57 O2 Sat by Pulse Oximetry 94 Intake and Output: Intake & Output 12/10/21 12/11/21 12/12/21 12/13/21 11:59 11:59 11:59 11:59 Intake Total 2013 994 / 994 1591 / 1591 Balance 2013 994 / 994 1591 / 1591 - Physical Exam Oriented: Person, Place Eyes: Normal Ear: Normal Nose: Normal Throat: Normal, Other (LEFT SIDE NECK SWOLLEN ) Respiratory: Generalized, Diminished Cardiovascular: Normal : Normal Auscultation: Bowel Sounds: Normal Palpation: Normal Tenderness: Normal Skin: Decreased Turgur Musculoskeletal: Normal Psychiatric: Normal Mood Description: Calm Affect: Normal Speech Pattern: Clear, Appropriate - Laboratory and Diagnostics Result Diagrams: 12/12/21 05:03 12/12/21 05:03 Labs: Laboratory WBC 5.0 X10^3/uL (3.6-10.0) 12/12/21 05:03 RBC 3.61 X10^6/uL (3.5-5.4) 12/12/21 05:03 Hgb 10.7 g/dL (12.0-16.0) L 12/12/21 05:03 Hct 32.0 % (36.0-47.0) L 12/12/21 05:03 MCV 88.6 fL (80.0-100.0) 12/12/21 05:03 MCH 29.8 pg (27.0-34.0) 12/12/21 05:03 MCHC 33.6 g/dL (33.0-35.0) 12/12/21 05:03 RDW 16.0 % (11.6-16.5) 12/12/21 05:03 Plt Count 134 X10^3/uL (150.0-450.0) L 12/12/21 05:03 MPV 10.3 fL (7.4-11.0) 12/12/21 05:03 Neut % (Auto) 63.1 % (42.0-75.0) 12/12/21 05:03 Lymph % (Auto) 19.2 % (21.0-51.0) L 12/12/21 05:03 [place] % (Auto) 13.7 % (0.0-13.0) H 12/12/21 05:03 Eos % (Auto) 3.2 % (0.9-2.9) H 12/12/21 05:03 Baso % (Auto) 0.8 % (0.2-1.0) 12/12/21 05:03 Neut # (Auto) 3.1 x10^3/uL (2.2-4.8) 12/12/21 05:03 Lymph # (Auto) 1.0 X10^3/uL (1.3-2.9) L 12/12/21 05:03 [place] # (Auto) 0.7 x10^3/uL (0.3-0.8) 12/12/21 05:03 Eos # (Auto) 0.2 x10^3/uL (0.0-0.2) 12/12/21 05:03 Baso # (Auto) 0.0 X10^3/uL (0.0-0.1) 12/12/21 05:03 Absolute Nucleated RBC 0.0 /100WBC 12/12/21 05:03 D-Dimer 1.79 ug/ml (0.0-0.57) H 12/03/21 04:29 Sodium 139 mmol/L (136-145) 12/12/21 05:03 Corrected Sodium TNP 12/12/21 05:03 Potassium 3.8 mmol/L (3.5-5.1) 12/12/21 05:03 Chloride 107 mmol/L (98-107) 12/12/21 05:03 Carbon Dioxide 24.4 mmol/L (21-32) 12/12/21 05:03 BUN 3 mg/dL (7-18) L 12/12/21 05:03 Creatinine 0.68 mg/dL (0.55-1.02) 12/12/21 05:03 Est GFR (MDRD) Af Amer > 60 (>60) 12/12/21 05:03 Est GFR (MDRD) Non-Af > 60 (>60) 12/12/21 05:03 Glucose 103 mg/dL (65-99) H 12/12/21 05:03 Calcium 8.2 mg/dL (8.5-10.1) L 12/12/21 05:03 Corrected Calcium 9.1 mg/dL (8.5-10.1) 12/12/21 05:03 Magnesium 1.9 mg/dL (1.7-2.9) 12/12/21 05:03 Total Bilirubin 0.40 mg/dL (0.2-1.0) 12/12/21 05:03 AST 12 Units/L (15-37) L 12/12/21 05:03 ALT 10 Units/L (12-78) L 12/12/21 05:03 Alkaline Phosphatase 86 Units/L (46-116) 12/12/21 05:03 Creatine Kinase 25 Units/L (26-192) L 12/03/21 04:29 Troponin I High Sens 32.1 ng/L (4.0-60.0) 12/03/21 04:29 C-Reactive Protein 4.00 mg/L (0-3.0) H 12/08/21 04:48 B-Natriuretic Peptide 286 pg/mL (0-79) H 12/08/21 04:48 Total Protein 6.5 g/dL (6.4-8.2) 12/12/21 05:03 Albumin 2.9 g/dL (3.4-5.0) L 12/12/21 05:03 Globulin 3.6 g/dL (2.5-4.5) 12/12/21 05:03 Albumin/Globulin Ratio 0.8 Ratio (1.1-2.1) L 12/12/21 05:03 Specimen Type Clean catch urine 12/02/21 16:48 Urine Color Yellow (YELLOW) 12/02/21 16:48 Urine Appearance Slightly hazy (CLEAR) 12/02/21 16:48 Urine pH 6.0 (5.0 - 8.0) 12/02/21 16:48 Ur Specific [place] 1.025 (1.000-1.030) 12/02/21 16:48 Urine Protein 4+ (NEGATIVE) 12/02/21 16:48 Urine Glucose (UA) Negative (NEGATIVE) 12/02/21 16:48 Urine Ketones Negative (NEGATIVE) 12/02/21 16:48 Urine Blood 1+ (NEGATIVE) 12/02/21 16:48 Urine Nitrite Negative (NEGATIVE) 12/02/21 16:48 Urine Bilirubin Negative (NEGATIVE) 12/02/21 16:48 Urine Urobilinogen Normal (NORMAL) 12/02/21 16:48 Ur Leukocyte Esterase Negative (NEGATIVE) 12/02/21 16:48 Urine RBC 3-5 /HPF (0-3) A 12/02/21 16:48 Urine WBC None seen /HPF (0-5) 12/02/21 16:48 Ur Squamous Epith Cells Rare /HPF (NEGATIVE) 12/02/21 16:48 Amorphous Sediment 3+ /HPF (NEGATIVE) 12/02/21 16:48 Urine Bacteria Trace /HPF (NEGATIVE) 12/02/21 16:48 Hyaline Casts Few /LPF (NEGATIVE) 12/02/21 16:48 Granular Casts Moderate /LPF (NEGATIVE) 12/02/21 16:48 Urine Mucus Few /HPF (NEGATIVE) 12/02/21 16:48 Ur Culture Indicated? No/not indicated 12/02/21 16:48 Salicylates < 2.8 mg/dL (2.8-20) L 12/02/21 15:57 Urine Opiates Screen Negative (NEG=<300) 12/02/21 16:48 Urine Methadone Screen Negative (NEG=<300) 12/02/21 16:48 Acetaminophen 0.0 ug/mL (10-30) L 12/02/21 15:57 Ur Barbiturates Screen Negative (NEG=<200) 12/02/21 16:48 Ur Phencyclidine Scrn Negative (NEG=<25) 12/02/21 16:48 Ur Amphetamines Screen Negative (NEG=<1000) 12/02/21 16:48 U Benzodiazepines Scrn Positive (NEG=<200) A 12/02/21 16:48 Urine Cocaine Screen Negative (NEG=<300) 12/02/21 16:48 U Marijuana (THC) Screen Negative (NEG=<50) 12/02/21 16:48 Ethyl Alcohol mg/dL < 3 mg/dL (0-19.9) 12/02/21 15:57 SARS-CoV-2 (PCR) Negative (NEGATIVE) 09/16/22 10:02 SARS CoV-2 RNA Rapid WINTER Positive (NEGATIVE) A 12/02/21 17:40 - Plan (1) Acute metabolic encephalopathy Status: Acute Plan: SUPPLEMENTAL OXYGEN, NORMAL SALINE AT 20 ML/HR, THE POTASSIUM AND MAGNESIUM PROTOCOL, LEVAQUIN 500MG IV DAILY, DUONEBS QID, PULMICORT NEBS BID, VALIUM 5MG PO TID PRN, LOVENOX 40MG SC DAILY, NORCO 7.5/325MG PO Q6H PRN, TORADOL 30MG IV Q8H, PROTONIX 40MG IV DAILY. 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
[2021-12-12] MEDS: VALIUM PO PRN (20:14)
[2021-12-12] MEDS: TORADOL 30 MG VIAL IVP PRN (23:00)
[2021-12-13] MEDS: NS 1,000 ML IV 1,000 ML IV SCH (04:51)
[2021-12-13 05:52] LABS: BASOPHILS % (AUTO) 0 % (0.2-1.0); EOSINOPHILS # (AUTO) 0.1 x10^3/uL (0.0-0.2); EOSINOPHILS % (AUTO) 2.8 % (0.9-2.9); HEMOGLOBIN 11.1 g/dL (12.0-16.0); LYMPHOCYTES # (AUTO) 0.9 X10^3/uL (1.3-2.9); MEAN CORPUSCULAR HEMOGLOBIN 29.8 pg (27.0-34.0); MEAN CORPUSCULAR HGB CONC 33.6 g/dL (33.0-35.0); MEAN CORPUSCULAR VOLUME 88.7 fL (80.0-100.0); MEAN PLATELET VOLUME 10.3 fL (7.4-11.0); MONOCYTES # (AUTO) 0.5 x10^3/uL (0.3-0.8); MONOCYTES % (AUTO) 11.8 % (0.0-13.0); NEUTROPHILS % (AUTO) 65.4 % (42.0-75.0); RED BLOOD COUNT 3.72 X10^6/uL (3.5-5.4); RED CELL DISTRIBUTION WIDTH 16.1 % (11.6-16.5); WHITE BLOOD COUNT 4.6 X10^3/uL (3.6-10.0)
[2021-12-13 06:11] LABS: ALANINE AMINOTRANSFERASE 11 Units/L (12-78); ALBUMIN 2.9 g/dL (3.4-5.0); ALKALINE PHOSPHATASE 86 Units/L (46-116); ASPARTATE AMINO TRANSFERASE 12 Units/L (15-37); BLOOD UREA NITROGEN 4 mg/dL (7-18); CALCIUM 8.5 mg/dL (8.5-10.1); CARBON DIOXIDE 26.7 mmol/L (21-32); CHLORIDE 106 mmol/L (98-107); COR CA(FOR HYPOALB) 9.4 mg/dL (8.5-10.1); CREATININE 0.68 mg/dL (0.55-1.02); MAGNESIUM 2.1 mg/dL (1.7-2.9); SODIUM 138 mmol/L (136-145); TOTAL PROTEIN 6.6 g/dL (6.4-8.2); eGFR NON BLACK RACES > 60 (>60)
[2021-12-13] MEDS: POTASSIUM CHLORIDE LIQ 20 MEQ UDC PO PRN (06:30)
[2021-12-13] MEDS ORDERED: MILK OF MAGNESIA PO PRN (07:59)
[2021-12-13] MEDS: PROzac PO SCH (08:04)
[2021-12-13] MEDS: MEGACE PO SCH ×2 (08:04→20:07)
[2021-12-13] MEDS: PROTONIX INJ 40 MG VIAL IVP SCH (08:05)
[2021-12-13] MEDS: COLACE CAP 100 MG PO SCH ×2 (08:06→20:06)
[2021-12-13] MEDS: LEVAQUIN PREMIX IV 500 MG 500 MG/100 ML BAG IV SCH ×2 (08:06→11:20)
[2021-12-13] MEDS: SYNTHROID 25 mcg TAB PO SCH (08:06)
[2021-12-13] MEDS: LOVENOX INJ 40 MG SYR SC SCH (08:07)
[2021-12-13] MEDS: DUONEB 0.5 MG/3 MG (3 mL) NEB SCH ×4 (08:20→20:57)
[2021-12-13] MEDS: PULMICORT NEB TX 0.5 MG NEB SCH ×2 (08:20→20:57)
[2021-12-13] MEDS: NORCO 7.5/325 MG TAB PO PRN ×2 (10:07→16:23)
[2021-12-13] MEDS: LEVAQUIN TAB 500 MG PO SCH (12:01)
[2021-12-13] MEDS: VALIUM PO PRN (20:06)
--- NOTE | 2021-12-13 20:40 | PCM.PROG ---
Progress Note - Progress Note for Day of Date of Exam: 12/13/21 - Subjective Subjective: WAS ADMITTED FOR TREATMENT OF ACUTE METABOLIC ENCEPHALOPATHY, PNEUMONIA DUE TO COVID-19, AND GENERALIZED WEAKNESS. SHE HAS A PMH OF DEMENTIA AND HAS RECENTLY HAD A NECK MASS REMOVED DUE TO SQUAMOUS CELL CARCINOMA. TODAY, SHE IS ALERT, LYING IN BED ON MORNING ROUNDS. SHE ANSWERS ALL QUESTIONS APPROPRIATELY AND FOLLOWS COMMANDS. PATIENT HAS NOT EXHIBITED ANY AGGRESSIVE OR COMBATIVE BEHAVIORS THIS MORNING OR THROUGHOUT THE NIGHT. ON EXAMINATION, SHE CONTINUES WITH SLIGHT SWELLING TO THE LEFT SIDE OF THE NECK. HEART IS REGULAR IN RATE AND RHYTHM. BILATERAL LUNGS ARE NOTED WITH DIMINISHED LUNG SOUNDS THROUGHOUT. ABDOMEN IS FLAT, SOFT, AND NON-TENDER WITH NORMAL BOWEL SOUNDS NOTED IN ALL QUADRANTS. NO UPPER OR LOWER EXTREMITY EDEMA NOTED. GOOD MOVEMENT NOTED TO ALL EXTREMITIES. HER VITALS THIS MORNING ARE: 97.7-85-20-97%-122/59. LABS WERE OBTAINED. WBC 4.6, RBC 3.72, HGB 11.1, HCT 33.0, PLT COUNT 132, SODIUM 137, POTASSIUM 3.7, CHLORIDE 106, BUN 4, CREATININE 0.68, GLUCOSE 103, AST 12, ALT 11, ALK PHOS 86, TOTAL PROTEIN 6.6, ALBUMIN 2.9. SHE IS CURRENTLY RECEIVING NORMAL SALINE AT 80 ML/HR, THE POTASSIUM AND MAGNESIUM PROTOCOL, LEVAQUIN 500MG IV DAILY, DUONEBS QID, PULMICORT NEBS BID, VALIUM 5MG PO TID PRN, LOVENOX 40MG SC DAILY, NORCO 7.5/325MG PO Q6H PRN, TORADOL 30MG IV Q8H PRN, PROTONIX 40MG IV DAILY, MAGIC MOUTHWASH QID PRN. WE WILL CONSULT SPEECH THERAPY. PHYSICAL THERAPY CONTINUES TO REPORT THAT PATIENT WOULD BENEFIT FROM LTC PLACEMENT AND CONTINUED PT SERVICES TO FACILITATE HIGHEST LEVEL OF FUNCTION PRIOR TO RETURNING HOME. WE ARE IN AGREEMENT AND CASE MANAGEMENT IS ARRANGING PLACEMENT. PATIENT HAS BEEN COOPERATIVE WITH PHYSICAL THERAPY. OTHERWISE, WE WILL CONTINUE WITH CURRENT PLAN OF CARE. WE WILL FOLLOW- UP WITH AM LABS AND CHEST XRAY AND CONTINUE TO MONITOR. TIME SPENT ON CLINICAL ASSESSMENT, REVIWING LABS AND IMAGING, DECISION MAKING, AND DOCUMENTATION GREATER THAN 45 MINUTES. - Past Medical Family Social History Past Med/Fam/Surg Hx: No changes since H&P Allergies: Allergies aspirin Allergy (Verified 12/02/21 15:35) - Review of Systems ROS: No change since H&P - Vital Signs and I&O's Vital Signs: Temperature 97.7 F Pulse Rate 85 Respiratory Rate 20 Blood Pressure [Left Arm] 143/78 Blood Pressure 122/59 O2 Sat by Pulse Oximetry 97 Intake and Output: Intake & Output 12/11/21 12/12/21 12/13/21 12/14/21 11:59 11:59 11:59 11:59 Intake Total 994 / 994 1591 / 1591 2195 / 2195 320 / 320 Balance 994 / 994 1591 / 1591 2195 / 2195 320 / 320 - Physical Exam Oriented: Person, Place Eyes: Normal Ear: Normal Nose: Normal Throat: Normal, Other (LEFT SIDE NECK SWOLLEN ) Respiratory: Generalized, Diminished Cardiovascular: Normal : Normal Auscultation: Bowel Sounds: Normal Palpation: Normal Tenderness: Normal Skin: Decreased Turgur Musculoskeletal: Normal Psychiatric: Normal Mood Description: Calm Affect: Normal Speech Pattern: Clear, Appropriate - Laboratory and Diagnostics Result Diagrams: 12/13/21 05:30 12/13/21 09:42 Labs: Laboratory WBC 4.6 X10^3/uL (3.6-10.0) 12/13/21 05:30 RBC 3.72 X10^6/uL (3.5-5.4) 12/13/21 05:30 Hgb 11.1 g/dL (12.0-16.0) L 12/13/21 05:30 Hct 33.0 % (36.0-47.0) L 12/13/21 05:30 MCV 88.7 fL (80.0-100.0) 12/13/21 05:30 MCH 29.8 pg (27.0-34.0) 12/13/21 05:30 MCHC 33.6 g/dL (33.0-35.0) 12/13/21 05:30 RDW 16.1 % (11.6-16.5) 12/13/21 05:30 Plt Count 132 X10^3/uL (150.0-450.0) L 12/13/21 05:30 MPV 10.3 fL (7.4-11.0) 12/13/21 05:30 Neut % (Auto) 65.4 % (42.0-75.0) 12/13/21 05:30 Lymph % (Auto) 20.0 % (21.0-51.0) L 12/13/21 05:30 [place] % (Auto) 11.8 % (0.0-13.0) 12/13/21 05:30 Eos % (Auto) 2.8 % (0.9-2.9) 12/13/21 05:30 Baso % (Auto) 0 % (0.2-1.0) L 12/13/21 05:30 Neut # (Auto) 3.0 x10^3/uL (2.2-4.8) 12/13/21 05:30 Lymph # (Auto) 0.9 X10^3/uL (1.3-2.9) L 12/13/21 05:30 [place] # (Auto) 0.5 x10^3/uL (0.3-0.8) 12/13/21 05:30 Eos # (Auto) 0.1 x10^3/uL (0.0-0.2) 12/13/21 05:30 Baso # (Auto) 0.0 X10^3/uL (0.0-0.1) 12/13/21 05:30 Absolute Nucleated RBC 0.0 /100WBC 12/13/21 05:30 D-Dimer 1.79 ug/ml (0.0-0.57) H 12/03/21 04:29 Sodium 138 mmol/L (136-145) 12/13/21 05:30 Corrected Sodium TNP 12/13/21 05:30 Potassium 3.8 mmol/L (3.5-5.1) 12/13/21 09:42 Chloride 106 mmol/L (98-107) 12/13/21 05:30 Carbon Dioxide 26.7 mmol/L (21-32) 12/13/21 05:30 BUN 4 mg/dL (7-18) L 12/13/21 05:30 Creatinine 0.68 mg/dL (0.55-1.02) 12/13/21 05:30 Est GFR (MDRD) Af Amer > 60 (>60) 12/13/21 05:30 Est GFR (MDRD) Non-Af > 60 (>60) 12/13/21 05:30 Glucose 103 mg/dL (65-99) H 12/13/21 05:30 Calcium 8.5 mg/dL (8.5-10.1) 12/13/21 05:30 Corrected Calcium 9.4 mg/dL (8.5-10.1) 12/13/21 05:30 Magnesium 2.1 mg/dL (1.7-2.9) 12/13/21 05:30 Total Bilirubin 0.40 mg/dL (0.2-1.0) 12/13/21 05:30 AST 12 Units/L (15-37) L 12/13/21 05:30 ALT 11 Units/L (12-78) L 12/13/21 05:30 Alkaline Phosphatase 86 Units/L (46-116) 12/13/21 05:30 Creatine Kinase 25 Units/L (26-192) L 12/03/21 04:29 Troponin I High Sens 32.1 ng/L (4.0-60.0) 12/03/21 04:29 C-Reactive Protein 4.00 mg/L (0-3.0) H 12/08/21 04:48 B-Natriuretic Peptide 286 pg/mL (0-79) H 12/08/21 04:48 Total Protein 6.6 g/dL (6.4-8.2) 12/13/21 05:30 Albumin 2.9 g/dL (3.4-5.0) L 12/13/21 05:30 Globulin 3.7 g/dL (2.5-4.5) 12/13/21 05:30 Albumin/Globulin Ratio 0.8 Ratio (1.1-2.1) L 12/13/21 05:30 Specimen Type Clean catch urine 12/02/21 16:48 Urine Color Yellow (YELLOW) 12/02/21 16:48 Urine Appearance Slightly hazy (CLEAR) 12/02/21 16:48 Urine pH 6.0 (5.0 - 8.0) 12/02/21 16:48 Ur Specific [place] 1.025 (1.000-1.030) 12/02/21 16:48 Urine Protein 4+ (NEGATIVE) 12/02/21 16:48 Urine Glucose (UA) Negative (NEGATIVE) 12/02/21 16:48 Urine Ketones Negative (NEGATIVE) 12/02/21 16:48 Urine Blood 1+ (NEGATIVE) 12/02/21 16:48 Urine Nitrite Negative (NEGATIVE) 12/02/21 16:48 Urine Bilirubin Negative (NEGATIVE) 12/02/21 16:48 Urine Urobilinogen Normal (NORMAL) 12/02/21 16:48 Ur Leukocyte Esterase Negative (NEGATIVE) 12/02/21 16:48 Urine RBC 3-5 /HPF (0-3) A 12/02/21 16:48 Urine WBC None seen /HPF (0-5) 12/02/21 16:48 Ur Squamous Epith Cells Rare /HPF (NEGATIVE) 12/02/21 16:48 Amorphous Sediment 3+ /HPF (NEGATIVE) 12/02/21 16:48 Urine Bacteria Trace /HPF (NEGATIVE) 12/02/21 16:48 Hyaline Casts Few /LPF (NEGATIVE) 12/02/21 16:48 Granular Casts Moderate /LPF (NEGATIVE) 12/02/21 16:48 Urine Mucus Few /HPF (NEGATIVE) 12/02/21 16:48 Ur Culture Indicated? No/not indicated 12/02/21 16:48 Salicylates < 2.8 mg/dL (2.8-20) L 12/02/21 15:57 Urine Opiates Screen Negative (NEG=<300) 12/02/21 16:48 Urine Methadone Screen Negative (NEG=<300) 12/02/21 16:48 Acetaminophen 0.0 ug/mL (10-30) L 12/02/21 15:57 Ur Barbiturates Screen Negative (NEG=<200) 12/02/21 16:48 Ur Phencyclidine Scrn Negative (NEG=<25) 12/02/21 16:48 Ur Amphetamines Screen Negative (NEG=<1000) 12/02/21 16:48 U Benzodiazepines Scrn Positive (NEG=<200) A 12/02/21 16:48 Urine Cocaine Screen Negative (NEG=<300) 12/02/21 16:48 U Marijuana (THC) Screen Negative (NEG=<50) 12/02/21 16:48 Ethyl Alcohol mg/dL < 3 mg/dL (0-19.9) 12/02/21 15:57 SARS-CoV-2 (PCR) Negative (NEGATIVE) 12/12/21 10:02 SARS CoV-2 RNA Rapid WINTER Positive (NEGATIVE) A 12/02/21 17:40 - Plan (1) Acute metabolic encephalopathy Status: Acute Plan: SUPPLEMENTAL OXYGEN, NORMAL SALINE AT 20 ML/HR, THE POTASSIUM AND MAGNESIUM PROTOCOL, LEVAQUIN 500MG IV DAILY, DUONEBS QID, PULMICORT NEBS BID, VALIUM 5MG PO TID PRN, LOVENOX 40MG SC DAILY, NORCO 7.5/325MG PO Q6H PRN, TORADOL 30MG IV Q8H, PROTONIX 40MG IV DAILY. 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
[2021-12-14] MEDS: NORCO 7.5/325 MG TAB PO PRN ×2 (01:14→19:04)
[2021-12-14 05:30] LABS: BASOPHILS # (AUTO) 0.1 X10^3/uL (0.0-0.1); BASOPHILS % (AUTO) 0.9 % (0.2-1.0); EOSINOPHILS # (AUTO) 0.2 x10^3/uL (0.0-0.2); EOSINOPHILS % (AUTO) 3.4 % (0.9-2.9); HEMATOCRIT 33.3 % (36.0-47.0); HEMOGLOBIN 11.1 g/dL (12.0-16.0); LYMPHOCYTES # (AUTO) 0.9 X10^3/uL (1.3-2.9); LYMPHOCYTES % (AUTO) 16.4 % (21.0-51.0); MEAN CORPUSCULAR HEMOGLOBIN 29.8 pg (27.0-34.0); MEAN CORPUSCULAR HGB CONC 33.5 g/dL (33.0-35.0); MEAN CORPUSCULAR VOLUME 88.9 fL (80.0-100.0); MEAN PLATELET VOLUME 10.4 fL (7.4-11.0); MONOCYTES # (AUTO) 0.6 x10^3/uL (0.3-0.8); MONOCYTES % (AUTO) 11.3 % (0.0-13.0); NEUTROPHILS # (AUTO) 3.9 x10^3/uL (2.2-4.8); RED BLOOD COUNT 3.74 X10^6/uL (3.5-5.4); RED CELL DISTRIBUTION WIDTH 15.8 % (11.6-16.5); WHITE BLOOD COUNT 5.7 X10^3/uL (3.6-10.0)
[2021-12-14 05:43] LABS: ALANINE AMINOTRANSFERASE 12 Units/L (12-78); ALBUMIN 2.9 g/dL (3.4-5.0); ALKALINE PHOSPHATASE 90 Units/L (46-116); ASPARTATE AMINO TRANSFERASE 12 Units/L (15-37); BLOOD UREA NITROGEN 5 mg/dL (7-18); CALCIUM 8.5 mg/dL (8.5-10.1); CARBON DIOXIDE 25.2 mmol/L (21-32); CHLORIDE 106 mmol/L (98-107); COR CA(FOR HYPOALB) 9.4 mg/dL (8.5-10.1); COR NA(FOR HYPERGLY) 138 mmol/L (136-145); CREATININE 0.75 mg/dL (0.55-1.02); SODIUM 138 mmol/L (136-145); TOTAL PROTEIN 6.6 g/dL (6.4-8.2); eGFR NON BLACK RACES > 60 (>60)
[2021-12-14] MEDS: PULMICORT NEB TX 0.5 MG NEB SCH ×2 (08:20→21:00)
[2021-12-14] MEDS: DUONEB 0.5 MG/3 MG (3 mL) NEB SCH ×4 (08:20→21:00)
[2021-12-14] MEDS: K-DUR TAB 20 MEQ PO PRN (08:52)
[2021-12-14] MEDS: SYNTHROID 25 mcg TAB PO SCH (08:52)
[2021-12-14] MEDS: PROzac PO SCH (08:52)
[2021-12-14] MEDS: LEVAQUIN TAB 500 MG PO SCH (08:52)
[2021-12-14] MEDS: MEGACE PO SCH ×2 (08:53→20:18)
[2021-12-14] MEDS: PROTONIX TAB 40 MG PO SCH (08:53)
[2021-12-14] MEDS: COLACE CAP 100 MG PO SCH ×2 (08:53→20:17)
[2021-12-14] MEDS: LOVENOX INJ 40 MG SYR SC SCH (09:34)
--- NOTE | 2021-12-14 16:19 | PCM.PROG ---
Progress Note - Progress Note for Day of Date of Exam: 12/14/21 - Subjective Subjective: WAS ADMITTED FOR TREATMENT OF ACUTE METABOLIC ENCEPHALOPATHY, PNEUMONIA DUE TO COVID-19, AND GENERALIZED WEAKNESS. SHE HAS A PMH OF DEMENTIA AND HAS RECENTLY HAD A NECK MASS REMOVED DUE TO SQUAMOUS CELL CARCINOMA. TODAY, SHE IS ALERT, LYING IN BED ON MORNING ROUNDS. SHE ANSWERS ALL QUESTIONS APPROPRIATELY AND FOLLOWS COMMANDS. PATIENT HAS NOT EXHIBITED ANY AGGRESSIVE OR COMBATIVE BEHAVIORS THIS MORNING OR THROUGHOUT THE NIGHT. ON EXAMINATION, SHE CONTINUES WITH SLIGHT SWELLING TO THE LEFT SIDE OF THE NECK. HEART IS REGULAR IN RATE AND RHYTHM. BILATERAL LUNGS ARE NOTED WITH DIMINISHED LUNG SOUNDS THROUGHOUT. ABDOMEN IS FLAT, SOFT, AND NON-TENDER WITH NORMAL BOWEL SOUNDS NOTED IN ALL QUADRANTS. NO UPPER OR LOWER EXTREMITY EDEMA NOTED. GOOD MOVEMENT NOTED TO ALL EXTREMITIES. HER VITALS THIS MORNING ARE: 99.3-92-20-94%-109/57. LABS WERE OBTAINED. WBC 5.7, RBC 3.74, HGB 11.1, HCT 33.3, PLT COUNT 141, SODIUM 138, POTASSIUM 4.0, BUN 5, CREATININE 0.75, GLUCOSE 112, CALCIUM 8.5, GLUCOSE 112, CALCIUM 8.5, AST 12, ALT 12, ALK PHOS 90, TOTAL PROTEIN 6.6, ALBUMIN 2.9. SHE IS CURRENTLY RECEIVING NORMAL SALINE AT 80 ML/HR, THE POTASSIUM AND MAGNESIUM PROTOCOL, LEVAQUIN 500MG IV DAILY, DUONEBS QID, PULMICORT NEBS BID, VALIUM 5MG PO TID PRN, LOVENOX 40MG SC DAILY, NORCO 7.5/325 MG PO Q6H PRN, TORADOL 30MG IV Q8H PRN, PROTONIX 40MG IV DAILY, MAGIC MOUTHWASH QID PRN. PHYSICAL THERAPY CONTINUES TO REPORT THAT PATIENT WOULD BENEFIT FROM LTC PLACEMENT AND CONTINUED PT SERVICES TO FACILITATE HIGHEST LEVEL OF FUNCTION PRIOR TO RETURNING HOME. WE ARE IN AGREEMENT AND CASE MANAGEMENT IS ARRANGING PLACEMENT. PATIENT HAS BEEN COOPERATIVE WITH PHYSICAL THERAPY. OTHERWISE, WE WILL CONTINUE WITH CURRENT PLAN OF CARE. WE WILL FOLLOW-UP WITH AM LABS AND CHEST XRAY AND CONTINUE TO MONITOR. TIME SPENT ON CLINICAL ASSESSMENT, REVIWING LABS AND IMAGING, DECISION MAKING, AND DOCUMENTATION GREATER THAN 45 MINUTES. - Past Medical Family Social History Past Med/Fam/Surg Hx: No changes since H&P Allergies: Allergies aspirin Allergy (Verified 12/02/21 15:35) - Review of Systems ROS: No change since H&P - Vital Signs and I&O's Vital Signs: Temperature 99.3 F Pulse Rate 92 Respiratory Rate 20 Blood Pressure [Left Arm] 143/78 Blood Pressure 109/57 O2 Sat by Pulse Oximetry 94 Intake and Output: Intake & Output 12/12/21 12/13/21 12/14/21 12/15/21 11:59 11:59 11:59 11:59 Intake Total 1591 / 1591 2195 / 2195 1004 / 1004 300 / 300 Balance 1591 / 1591 2195 / 2195 1004 / 1004 300 / 300 - Physical Exam Oriented: Person, Place Eyes: Normal Ear: Normal Nose: Normal Throat: Normal, Other (LEFT SIDE NECK SWOLLEN ) Respiratory: Generalized, Diminished Cardiovascular: Normal : Normal Auscultation: Bowel Sounds: Normal Palpation: Normal Tenderness: Normal Skin: Decreased Turgur Musculoskeletal: Normal Psychiatric: Normal Mood Description: Calm Affect: Normal Speech Pattern: Clear, Appropriate - Laboratory and Diagnostics Result Diagrams: 12/14/21 05:01 12/14/21 05:01 Labs: Laboratory WBC 5.7 X10^3/uL (3.6-10.0) 12/14/21 05:01 RBC 3.74 X10^6/uL (3.5-5.4) 12/14/21 05:01 Hgb 11.1 g/dL (12.0-16.0) L 12/14/21 05:01 Hct 33.3 % (36.0-47.0) L 12/14/21 05:01 MCV 88.9 fL (80.0-100.0) 12/14/21 05:01 MCH 29.8 pg (27.0-34.0) 12/14/21 05:01 MCHC 33.5 g/dL (33.0-35.0) 12/14/21 05:01 RDW 15.8 % (11.6-16.5) 12/14/21 05:01 Plt Count 141 X10^3/uL (150.0-450.0) L 12/14/21 05:01 MPV 10.4 fL (7.4-11.0) 12/14/21 05:01 Neut % (Auto) 68.0 % (42.0-75.0) 12/14/21 05:01 Lymph % (Auto) 16.4 % (21.0-51.0) L 12/14/21 05:01 [place] % (Auto) 11.3 % (0.0-13.0) 12/14/21 05:01 Eos % (Auto) 3.4 % (0.9-2.9) H 12/14/21 05:01 Baso % (Auto) 0.9 % (0.2-1.0) 12/14/21 05:01 Neut # (Auto) 3.9 x10^3/uL (2.2-4.8) 12/14/21 05:01 Lymph # (Auto) 0.9 X10^3/uL (1.3-2.9) L 12/14/21 05:01 [place] # (Auto) 0.6 x10^3/uL (0.3-0.8) 12/14/21 05:01 Eos # (Auto) 0.2 x10^3/uL (0.0-0.2) 12/14/21 05:01 Baso # (Auto) 0.1 X10^3/uL (0.0-0.1) 12/14/21 05:01 Absolute Nucleated RBC 0.0 /100WBC 12/14/21 05:01 D-Dimer 1.79 ug/ml (0.0-0.57) H 12/03/21 04:29 Sodium 138 mmol/L (136-145) 12/14/21 05:01 Corrected Sodium 138 mmol/L (136-145) 12/14/21 05:01 Potassium 4.0 mmol/L (3.5-5.1) 12/14/21 05:01 Chloride 106 mmol/L (98-107) 12/14/21 05:01 Carbon Dioxide 25.2 mmol/L (21-32) 12/14/21 05:01 BUN 5 mg/dL (7-18) L 12/14/21 05:01 Creatinine 0.75 mg/dL (0.55-1.02) 12/14/21 05:01 Est GFR (MDRD) Af Amer > 60 (>60) 12/14/21 05:01 Est GFR (MDRD) Non-Af > 60 (>60) 12/14/21 05:01 Glucose 112 mg/dL (65-99) H 12/14/21 05:01 Calcium 8.5 mg/dL (8.5-10.1) 12/14/21 05:01 Corrected Calcium 9.4 mg/dL (8.5-10.1) 12/14/21 05:01 Magnesium 2.1 mg/dL (1.7-2.9) 12/13/21 05:30 Total Bilirubin 0.40 mg/dL (0.2-1.0) 12/14/21 05:01 AST 12 Units/L (15-37) L 12/14/21 05:01 ALT 12 Units/L (12-78) 12/14/21 05:01 Alkaline Phosphatase 90 Units/L (46-116) 12/14/21 05:01 Creatine Kinase 25 Units/L (26-192) L 12/03/21 04:29 Troponin I High Sens 32.1 ng/L (4.0-60.0) 12/03/21 04:29 C-Reactive Protein 4.00 mg/L (0-3.0) H 12/08/21 04:48 B-Natriuretic Peptide 286 pg/mL (0-79) H 12/08/21 04:48 Total Protein 6.6 g/dL (6.4-8.2) 12/14/21 05:01 Albumin 2.9 g/dL (3.4-5.0) L 12/14/21 05:01 Globulin 3.7 g/dL (2.5-4.5) 12/14/21 05:01 Albumin/Globulin Ratio 0.8 Ratio (1.1-2.1) L 12/14/21 05:01 Specimen Type Clean catch urine 12/02/21 16:48 Urine Color Yellow (YELLOW) 12/02/21 16:48 Urine Appearance Slightly hazy (CLEAR) 12/02/21 16:48 Urine pH 6.0 (5.0 - 8.0) 12/02/21 16:48 Ur Specific [place] 1.025 (1.000-1.030) 12/02/21 16:48 Urine Protein 4+ (NEGATIVE) 12/02/21 16:48 Urine Glucose (UA) Negative (NEGATIVE) 12/02/21 16:48 Urine Ketones Negative (NEGATIVE) 12/02/21 16:48 Urine Blood 1+ (NEGATIVE) 12/02/21 16:48 Urine Nitrite Negative (NEGATIVE) 12/02/21 16:48 Urine Bilirubin Negative (NEGATIVE) 12/02/21 16:48 Urine Urobilinogen Normal (NORMAL) 12/02/21 16:48 Ur Leukocyte Esterase Negative (NEGATIVE) 12/02/21 16:48 Urine RBC 3-5 /HPF (0-3) A 12/02/21 16:48 Urine WBC None seen /HPF (0-5) 12/02/21 16:48 Ur Squamous Epith Cells Rare /HPF (NEGATIVE) 12/02/21 16:48 Amorphous Sediment 3+ /HPF (NEGATIVE) 12/02/21 16:48 Urine Bacteria Trace /HPF (NEGATIVE) 12/02/21 16:48 Hyaline Casts Few /LPF (NEGATIVE) 12/02/21 16:48 Granular Casts Moderate /LPF (NEGATIVE) 12/02/21 16:48 Urine Mucus Few /HPF (NEGATIVE) 12/02/21 16:48 Ur Culture Indicated? No/not indicated 12/02/21 16:48 Salicylates < 2.8 mg/dL (2.8-20) L 12/02/21 15:57 Urine Opiates Screen Negative (NEG=<300) 12/02/21 16:48 Urine Methadone Screen Negative (NEG=<300) 12/02/21 16:48 Acetaminophen 0.0 ug/mL (10-30) L 12/02/21 15:57 Ur Barbiturates Screen Negative (NEG=<200) 12/02/21 16:48 Ur Phencyclidine Scrn Negative (NEG=<25) 12/02/21 16:48 Ur Amphetamines Screen Negative (NEG=<1000) 12/02/21 16:48 U Benzodiazepines Scrn Positive (NEG=<200) A 12/02/21 16:48 Urine Cocaine Screen Negative (NEG=<300) 12/02/21 16:48 U Marijuana (THC) Screen Negative (NEG=<50) 12/02/21 16:48 Ethyl Alcohol mg/dL < 3 mg/dL (0-19.9) 12/02/21 15:57 SARS-CoV-2 (PCR) Negative (NEGATIVE) 12/12/21 10:02 SARS CoV-2 RNA Rapid W[place] Positive (NEGATIVE) A 12/02/21 17:40 - Plan (1) Acute metabolic encephalopathy Status: Acute Plan: SUPPLEMENTAL OXYGEN, NORMAL SALINE AT 20 ML/HR, THE POTASSIUM AND MAGNESIUM PROTOCOL, LEVAQUIN 500MG IV DAILY, DUONEBS QID, PULMICORT NEBS BID, VALIUM 5MG PO TID PRN, LOVENOX 40MG SC DAILY, NORCO 7.5/325MG PO Q6H PRN, TOR ADOL 30MG IV Q8H, PROTONIX 40MG IV DAILY. 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
[2021-12-14] MEDS: VALIUM PO PRN (20:17)
[2021-12-15] MEDS: NORCO 7.5/325 MG TAB PO PRN ×3 (01:41→21:26)
[2021-12-15 05:34] LABS: BASOPHILS % (AUTO) 0.9 % (0.2-1.0); EOSINOPHILS # (AUTO) 0.2 x10^3/uL (0.0-0.2); EOSINOPHILS % (AUTO) 2.8 % (0.9-2.9); HEMATOCRIT 33.4 % (36.0-47.0); HEMOGLOBIN 11.3 g/dL (12.0-16.0); LYMPHOCYTES % (AUTO) 17.2 % (21.0-51.0); MEAN CORPUSCULAR HEMOGLOBIN 29.8 pg (27.0-34.0); MEAN CORPUSCULAR HGB CONC 33.7 g/dL (33.0-35.0); MEAN CORPUSCULAR VOLUME 88.4 fL (80.0-100.0); MEAN PLATELET VOLUME 10.2 fL (7.4-11.0); MONOCYTES # (AUTO) 0.8 x10^3/uL (0.3-0.8); NEUTROPHILS # (AUTO) 3.6 x10^3/uL (2.2-4.8); NEUTROPHILS % (AUTO) 65.1 % (42.0-75.0); RED BLOOD COUNT 3.78 X10^6/uL (3.5-5.4); RED CELL DISTRIBUTION WIDTH 15.8 % (11.6-16.5); WHITE BLOOD COUNT 5.5 X10^3/uL (3.6-10.0)
[2021-12-15 05:46] LABS: ALANINE AMINOTRANSFERASE 11 Units/L (12-78); ALKALINE PHOSPHATASE 92 Units/L (46-116); ASPARTATE AMINO TRANSFERASE 14 Units/L (15-37); BLOOD UREA NITROGEN 10 mg/dL (7-18); CALCIUM 8.5 mg/dL (8.5-10.1); CHLORIDE 103 mmol/L (98-107); COR CA(FOR HYPOALB) 9.3 mg/dL (8.5-10.1); SODIUM 135 mmol/L (136-145); TOTAL PROTEIN 6.8 g/dL (6.4-8.2); eGFR NON BLACK RACES > 60 (>60)
[2021-12-15] MEDS: LOVENOX INJ 40 MG SYR SC SCH (08:35)
[2021-12-15] MEDS: PROzac PO SCH (08:35)
[2021-12-15] MEDS: MEGACE PO SCH ×2 (08:36→20:13)
[2021-12-15] MEDS: PROTONIX TAB 40 MG PO SCH (08:36)
[2021-12-15] MEDS: LEVAQUIN TAB 500 MG PO SCH (08:36)
[2021-12-15] MEDS: COLACE CAP 100 MG PO SCH ×2 (08:36→20:12)
[2021-12-15] MEDS: SYNTHROID 25 mcg TAB PO SCH (08:36)
[2021-12-15] MEDS: DUONEB 0.5 MG/3 MG (3 mL) NEB SCH ×4 (08:39→20:20)
[2021-12-15] MEDS: PULMICORT NEB TX 0.5 MG NEB SCH ×2 (08:39→20:20)
--- NOTE | 2021-12-15 13:04 | PCM.PROG ---
Progress Note - Progress Note for Day of Date of Exam: 12/15/21 - Subjective Subjective: WAS ADMITTED FOR TREATMENT OF ACUTE METABOLIC ENCEPHALOPATHY, PNEUMONIA DUE TO COVID-19, AND GENERALIZED WEAKNESS. SHE HAS A PMH OF DEMENTIA AND HAS RECENTLY HAD A NECK MASS REMOVED DUE TO SQUAMOUS CELL CARCINOMA. TODAY, SHE IS ALERT, LYING IN BED ON MORNING ROUNDS. SHE ANSWERS ALL QUESTIONS APPROPRIATELY AND FOLLOWS COMMANDS. PATIENT HAS NOT EXHIBITED ANY AGGRESSIVE OR COMBATIVE BEHAVIORS THIS MORNING OR THROUGHOUT THE NIGHT. ON EXAMINATION, SHE CONTINUES WITH SLIGHT SWELLING TO THE LEFT SIDE OF THE NECK. HEART IS REGULAR IN RATE AND RHYTHM. BILATERAL LUNGS ARE NOTED WITH DIMINISHED LUNG SOUNDS THROUGHOUT. ABDOMEN IS FLAT, SOFT, AND NON-TENDER WITH NORMAL BOWEL SOUNDS NOTED IN ALL QUADRANTS. NO UPPER OR LOWER EXTREMITY EDEMA NOTED. GOOD MOVEMENT NOTED TO ALL EXTREMITIES. HER VITALS THIS MORNING ARE: 98.3-83-18-94%-132/58. LABS WERE OBTAINED. WBC 5.5, RBC 3.78, HGB 11.3, HCT 33.4, PLT COUNT 146, SODIUM 135, POTASSIUM 4.1, CHLORIDE 103, BUN 10, CREATININE 0.70, GLUCOSE 98, AST 14, ALT 11, ALK PHOS 92, TOTAL PROTEIN 6.8, ALBUMIN 3.0. SHE IS CURRENTLY RECEIVING NORMAL SALINE AT 80 ML/HR, THE POTASSIUM AND MAGNESIUM PROTOCOL, LEVAQUIN 500MG IV DAILY, DUONEBS QID, PULMICORT NEBS BID, VALIUM 5MG PO TID PRN, LOVENOX 40MG SC DAILY, NORCO 7.5/325MG PO Q6H PRN, TORADOL 30MG IV Q8H PRN, PROTONIX 40MG IV DAILY, MAGIC MOUTHWASH QID PRN. PHYSICAL THERAPY CONTINUES TO REPORT THAT PATIENT WOULD BENEFIT FROM LTC PLACEMENT AND CONTINUED PT SERVICES TO FACILITATE HIGHEST LEVEL OF FUNCTION PRIOR TO RETURNING HOME. WE ARE IN AGREEMENT AND CASE MANAGEMENT IS ARRANGING PLACEMENT. PATIENT HAS BEEN COOPERATIVE WITH PHYSICAL THERAPY. OTHERWISE, WE WILL CONTINUE WITH CURRENT PLAN OF CARE. WE WILL FOLLOW-UP WITH AM LABS AND CHEST XRAY AND CONTINUE TO MONITOR. TIME SPENT ON CLINICAL ASSESSMENT, REVIWING LABS AND IMAGING, DECISION MAKING, AND DOCUMENTATION GREATER THAN 45 MINUTES. - Past Medical Family Social History Past Med/Fam/Surg Hx: No changes since H&P Allergies: Allergies aspirin Allergy (Verified 12/02/21 15:35) - Review of Systems ROS: No change since H&P - Vital Signs and I&O's Vital Signs: Temperature 98.6 F Pulse Rate [Left Radial] 83 Pulse Rate 86 Respiratory Rate 18 Blood Pressure [Left Arm] 140/60 Blood Pressure 113/66 O2 Sat by Pulse Oximetry 96 Intake and Output: Intake & Output 12/13/21 12/14/21 12/15/21 12/16/21 11:59 11:59 11:59 11:59 Intake Total 2194 1004 / 1004 980 / 980 Balance 2194 1004 / 1004 980 / 980 - Physical Exam Oriented: Person, Place Eyes: Normal Ear: Normal Nose: Normal Throat: Normal, Other (LEFT SIDE NECK SWOLLEN ) Respiratory: Generalized, Diminished Cardiovascular: Normal : Normal Auscultation: Bowel Sounds: Normal Tenderness: Normal Skin: Decreased Turgur Musculoskeletal: Normal Psychiatric: Normal Mood Description: Calm Affect: Normal Speech Pattern: Clear, Appropriate - Laboratory and Diagnostics Result Diagrams: 12/15/21 05:19 12/15/21 05:19 Labs: Laboratory WBC 5.5 X10^3/uL (3.6-10.0) 12/15/21 05:19 RBC 3.78 X10^6/uL (3.5-5.4) 12/15/21 05:19 Hgb 11.3 g/dL (12.0-16.0) L 12/15/21 05:19 Hct 33.4 % (36.0-47.0) L 12/15/21 05:19 MCV 88.4 fL (80.0-100.0) 12/15/21 05:19 MCH 29.8 pg (27.0-34.0) 12/15/21 05:19 MCHC 33.7 g/dL (33.0-35.0) 12/15/21 05:19 RDW 15.8 % (11.6-16.5) 12/15/21 05:19 Plt Count 146 X10^3/uL (150.0-450.0) L 12/15/21 05:19 MPV 10.2 fL (7.4-11.0) 12/15/21 05:19 Neut % (Auto) 65.1 % (42.0-75.0) 12/15/21 05:19 Lymph % (Auto) 17.2 % (21.0-51.0) L 12/15/21 05:19 [place] % (Auto) 14.0 % (0.0-13.0) H 12/15/21 05:19 Eos % (Auto) 2.8 % (0.9-2.9) 12/15/21 05:19 Baso % (Auto) 0.9 % (0.2-1.0) 12/15/21 05:19 Neut # (Auto) 3.6 x10^3/uL (2.2-4.8) 12/15/21 05:19 Lymph # (Auto) 1.0 X10^3/uL (1.3-2.9) L 12/15/21 05:19 [place] # (Auto) 0.8 x10^3/uL (0.3-0.8) 12/15/21 05:19 Eos # (Auto) 0.2 x10^3/uL (0.0-0.2) 12/15/21 05:19 Baso # (Auto) 0.0 X10^3/uL (0.0-0.1) 12/15/21 05:19 Absolute Nucleated RBC 0.0 /100WBC 12/15/21 05:19 D-Dimer 1.79 ug/ml (0.0-0.57) H 12/03/21 04:29 Sodium 135 mmol/L (136-145) L 12/15/21 05:19 Corrected Sodium TNP 12/15/21 05:19 Potassium 4.1 mmol/L (3.5-5.1) 12/15/21 05:19 Chloride 103 mmol/L (98-107) 12/15/21 05:19 Carbon Dioxide 25.0 mmol/L (21-32) 12/15/21 05:19 BUN 10 mg/dL (7-18) 12/15/21 05:19 Creatinine 0.70 mg/dL (0.55-1.02) 12/15/21 05:19 Est GFR (MDRD) Af Amer > 60 (>60) 12/15/21 05:19 Est GFR (MDRD) Non-Af > 60 (>60) 12/15/21 05:19 Glucose 98 mg/dL (65-99) 12/15/21 05:19 POC Glucose (mg/dL) 183 mg/dL (65-99) H 12/14/21 18:24 Calcium 8.5 mg/dL (8.5-10.1) 12/15/21 05:19 Corrected Calcium 9.3 mg/dL (8.5-10.1) 12/15/21 05:19 Magnesium 2.1 mg/dL (1.7-2.9) 12/13/21 05:30 Total Bilirubin 0.40 mg/dL (0.2-1.0) 12/15/21 05:19 AST 14 Units/L (15-37) L 12/15/21 05:19 ALT 11 Units/L (12-78) L 12/15/21 05:19 Alkaline Phosphatase 92 Units/L (46-116) 12/15/21 05:19 Creatine Kinase 25 Units/L (26-192) L 12/03/21 04:29 Troponin I High Sens 32.1 ng/L (4.0-60.0) 12/03/21 04:29 C-Reactive Protein 4.00 mg/L (0-3.0) H 12/08/21 04:48 B-Natriuretic Peptide 286 pg/mL (0-79) H 12/08/21 04:48 Total Protein 6.8 g/dL (6.4-8.2) 12/15/21 05:19 Albumin 3.0 g/dL (3.4-5.0) L 12/15/21 05:19 Globulin 3.8 g/dL (2.5-4.5) 12/15/21 05:19 Albumin/Globulin Ratio 0.8 Ratio (1.1-2.1) L 12/15/21 05:19 Specimen Type Clean catch urine 12/02/21 16:48 Urine Color Yellow (YELLOW) 12/02/21 16:48 Urine Appearance Slightly hazy (CLEAR) 12/02/21 16:48 Urine pH 6.0 (5.0 - 8.0) 12/02/21 16:48 Ur Specific [place] 1.025 (1.000-1.030) 12/02/21 16:48 Urine Protein 4+ (NEGATIVE) 12/02/21 16:48 Urine Glucose (UA) Negative (NEGATIVE) 12/02/21 16:48 Urine Ketones Negative (NEGATIVE) 12/02/21 16:48 Urine Blood 1+ (NEGATIVE) 12/02/21 16:48 Urine Nitrite Negative (NEGATIVE) 12/02/21 16:48 Urine Bilirubin Negative (NEGATIVE) 12/02/21 16:48 Urine Urobilinogen Normal (NORMAL) 12/02/21 16:48 Ur Leukocyte Esterase Negative (NEGATIVE) 12/02/21 16:48 Urine RBC 3-5 /HPF (0-3) A 12/02/21 16:48 Urine WBC None seen /HPF (0-5) 12/02/21 16:48 Ur Squamous Epith Cells Rare /HPF (NEGATIVE) 12/02/21 16:48 Amorphous Sediment 3+ /HPF (NEGATIVE) 12/02/21 16:48 Urine Bacteria Trace /HPF (NEGATIVE) 12/02/21 16:48 Hyaline Casts Few /LPF (NEGATIVE) 12/02/21 16:48 Granular Casts Moderate /LPF (NEGATIVE) 12/02/21 16:48 Urine Mucus Few /HPF (NEGATIVE) 12/02/21 16:48 Ur Culture Indicated? No/not indicated 12/02/21 16:48 Salicylates < 2.8 mg/dL (2.8-20) L 12/02/21 15:57 Urine Opiates Screen Negative (NEG=<300) 12/02/21 16:48 Urine Methadone Screen Negative (NEG=<300) 12/02/21 16:48 Acetaminophen 0.0 ug/mL (10-30) L 12/02/21 15:57 Ur Barbiturates Screen Negative (NEG=<200) 12/02/21 16:48 Ur Phencyclidine Scrn Negative (NEG=<25) 12/02/21 16:48 Ur Amphetamines Screen Negative (NEG=<1000) 12/02/21 16:48 U Benzodiazepines Scrn Positive (NEG=<200) A 12/02/21 16:48 Urine Cocaine Screen Negative (NEG=<300) 12/02/21 16:48 U Marijuana (THC) Screen Negative (NEG=<50) 12/02/21 16:48 Ethyl Alcohol mg/dL < 3 mg/dL (0-19.9) 12/02/21 15:57 SARS-CoV-2 (PCR) Negative (NEGATIVE) 12/12/21 10:02 SARS CoV-2 RNA Rapid [place] Positive (NEGATIVE) A 12/02/21 17:40 - Plan (1) Acute metabolic encephalopathy Status: Acute Plan: SUPPLEMENTAL OXYGEN, NORMAL SALINE AT 20 ML/HR, THE POTASSIUM AND MAGNESIUM PROTOCOL, LEVAQUIN 500MG IV DAILY, DUONEBS QID, PULMICORT NEBS BID, VALIUM 5MG PO TID PRN, LOVENOX 40MG SC DAILY, NORCO 7.5/325MG PO Q6H PRN, TORADOL 30MG IV Q8H, PROTONIX 40MG IV DAILY. 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
[2021-12-16] MEDS: NORCO 7.5/325 MG TAB PO PRN ×3 (03:28→23:17)
[2021-12-16 05:54] LABS: BASOPHILS # (AUTO) 0.1 X10^3/uL (0.0-0.1); EOSINOPHILS # (AUTO) 0.2 x10^3/uL (0.0-0.2); EOSINOPHILS % (AUTO) 3.2 % (0.9-2.9); HEMATOCRIT 33.6 % (36.0-47.0); HEMOGLOBIN 11.3 g/dL (12.0-16.0); LYMPHOCYTES % (AUTO) 20.5 % (21.0-51.0); MEAN CORPUSCULAR HEMOGLOBIN 29.8 pg (27.0-34.0); MEAN CORPUSCULAR HGB CONC 33.6 g/dL (33.0-35.0); MEAN CORPUSCULAR VOLUME 88.7 fL (80.0-100.0); MEAN PLATELET VOLUME 11.1 fL (7.4-11.0); MONOCYTES # (AUTO) 0.8 x10^3/uL (0.3-0.8); MONOCYTES % (AUTO) 14.8 % (0.0-13.0); NEUTROPHILS # (AUTO) 3.1 x10^3/uL (2.2-4.8); NEUTROPHILS % (AUTO) 60.5 % (42.0-75.0); RED BLOOD COUNT 3.79 X10^6/uL (3.5-5.4); WHITE BLOOD COUNT 5.1 X10^3/uL (3.6-10.0)
[2021-12-16 05:59] LABS: ALANINE AMINOTRANSFERASE 10 Units/L (12-78); ALKALINE PHOSPHATASE 89 Units/L (46-116); ASPARTATE AMINO TRANSFERASE 16 Units/L (15-37); BLOOD UREA NITROGEN 6 mg/dL (7-18); CALCIUM 8.6 mg/dL (8.5-10.1); CARBON DIOXIDE 25.6 mmol/L (21-32); CHLORIDE 104 mmol/L (98-107); COR CA(FOR HYPOALB) 9.4 mg/dL (8.5-10.1); CREATININE 0.69 mg/dL (0.55-1.02); SODIUM 138 mmol/L (136-145); TOTAL PROTEIN 6.9 g/dL (6.4-8.2); eGFR NON BLACK RACES > 60 (>60)
[2021-12-16 06:20] LABS: PLATELET MORPHOLOGY COMMENT NORMAL (NORMAL)
[2021-12-16] MEDS: SYNTHROID 25 mcg TAB PO SCH (08:13)
[2021-12-16] MEDS: LEVAQUIN TAB 500 MG PO SCH (08:13)
[2021-12-16] MEDS: COLACE CAP 100 MG PO SCH ×2 (08:13→20:00)
[2021-12-16] MEDS: PROzac PO SCH (08:13)
[2021-12-16] MEDS: LOVENOX INJ 40 MG SYR SC SCH (08:14)
[2021-12-16] MEDS: PROTONIX TAB 40 MG PO SCH (08:14)
[2021-12-16] MEDS: MEGACE PO SCH ×2 (08:14→20:00)
[2021-12-16] MEDS: PULMICORT NEB TX 0.5 MG NEB SCH ×2 (08:26→20:25)
[2021-12-16] MEDS: DUONEB 0.5 MG/3 MG (3 mL) NEB SCH ×4 (08:26→20:25)
[2021-12-17] MEDS: VALIUM PO PRN (05:19)
[2021-12-17 06:25] LABS: BASOPHILS # (AUTO) 0.1 X10^3/uL (0.0-0.1); BASOPHILS % (AUTO) 1.1 % (0.2-1.0); EOSINOPHILS # (AUTO) 0.1 x10^3/uL (0.0-0.2); HEMATOCRIT 33.5 % (36.0-47.0); HEMOGLOBIN 11.2 g/dL (12.0-16.0); LYMPHOCYTES # (AUTO) 1.1 X10^3/uL (1.3-2.9); MEAN CORPUSCULAR HGB CONC 33.5 g/dL (33.0-35.0); MEAN CORPUSCULAR VOLUME 89.4 fL (80.0-100.0); MEAN PLATELET VOLUME 10.2 fL (7.4-11.0); MONOCYTES # (AUTO) 0.6 x10^3/uL (0.3-0.8); MONOCYTES % (AUTO) 13.3 % (0.0-13.0); NEUTROPHILS # (AUTO) 2.9 x10^3/uL (2.2-4.8); NEUTROPHILS % (AUTO) 60.6 % (42.0-75.0); RED BLOOD COUNT 3.74 X10^6/uL (3.5-5.4); RED CELL DISTRIBUTION WIDTH 15.7 % (11.6-16.5); WHITE BLOOD COUNT 4.8 X10^3/uL (3.6-10.0)
[2021-12-17 06:33] LABS: ALANINE AMINOTRANSFERASE 11 Units/L (12-78); ALBUMIN 3.1 g/dL (3.4-5.0); ALKALINE PHOSPHATASE 85 Units/L (46-116); ASPARTATE AMINO TRANSFERASE 17 Units/L (15-37); BLOOD UREA NITROGEN 7 mg/dL (7-18); CALCIUM 8.7 mg/dL (8.5-10.1); CARBON DIOXIDE 23.9 mmol/L (21-32); CHLORIDE 103 mmol/L (98-107); COR CA(FOR HYPOALB) 9.4 mg/dL (8.5-10.1); CREATININE 0.68 mg/dL (0.55-1.02); SODIUM 136 mmol/L (136-145); TOTAL PROTEIN 6.9 g/dL (6.4-8.2); eGFR NON BLACK RACES > 60 (>60)
[2021-12-17] MEDS: PULMICORT NEB TX 0.5 MG NEB SCH ×2 (08:10→20:55)
[2021-12-17] MEDS: DUONEB 0.5 MG/3 MG (3 mL) NEB SCH ×4 (08:10→20:55)
[2021-12-17] MEDS: NORCO 7.5/325 MG TAB PO PRN ×2 (09:46→20:20)
[2021-12-17] MEDS: LEVAQUIN TAB 500 MG PO SCH (09:47)
[2021-12-17] MEDS: LOVENOX INJ 40 MG SYR SC SCH (09:47)
[2021-12-17] MEDS: PROTONIX TAB 40 MG PO SCH (09:48)
[2021-12-17] MEDS: MEGACE PO SCH ×2 (09:48→20:20)
[2021-12-17] MEDS: PROzac PO SCH (09:49)
[2021-12-17] MEDS: COLACE CAP 100 MG PO SCH ×2 (09:49→20:20)
[2021-12-17] MEDS: SYNTHROID 25 mcg TAB PO SCH (09:49)
[2021-12-17] MEDS: K-DUR TAB 20 MEQ PO PRN (10:00)
--- NOTE | 2021-12-17 12:45 | PCM.PROG ---
Progress Note - Progress Note for Day of Date of Exam: 12/17/21 - Subjective Subjective: WAS ADMITTED FOR TREATMENT OF ACUTE METABOLIC ENCEPHALOPATHY, PNEUMONIA DUE TO COVID-19, AND GENERALIZED WEAKNESS. SHE HAS A PMH OF DEMENTIA AND HAS RECENTLY HAD A NECK MASS REMOVED DUE TO SQUAMOUS CELL CARCINOMA. TODAY, SHE IS ALERT, LYING IN BED ON MORNING ROUNDS. SHE ANSWERS ALL QUESTIONS APPROPRIATELY AND FOLLOWS COMMANDS. PATIENT HAS NOT EXHIBITED ANY AGGRESSIVE OR COMBATIVE BEHAVIORS THIS MORNING OR THROUGHOUT THE NIGHT. ON EXAMINATION, SHE CONTINUES WITH SLIGHT SWELLING TO THE LEFT SIDE OF THE NECK. HEART IS REGULAR IN RATE AND RHYTHM. BILATERAL LUNGS ARE NOTED WITH DIMINISHED LUNG SOUNDS THROUGHOUT. ABDOMEN IS FLAT, SOFT, AND NON-TENDER WITH NORMAL BOWEL SOUNDS NOTED IN ALL QUADRANTS. NO UPPER OR LOWER EXTREMITY EDEMA NOTED. GOOD MOVEMENT NOTED TO ALL EXTREMITIES. HER VITALS THIS MORNING ARE: 98.8-82-18-93%-122/59. LABS WERE OBTAINED. WBC 5.1, HGB 11.3, HCT 33.9, PLT COUNT 139, SODIUM 136, POTASSIUM 3.6, BUN 7, CREATININE 0.68, GLUCOSE 92, CALCIUM 8.7, AST 17, ALT 11, ALK PHOS 85, TOTAL PROTEIN 6.9, ALBUMIN 3.1. SHE IS CURRENTLY RECEIVING NORMAL SALINE AT 80 ML/HR, THE POTASSIUM AND MAGNESIUM PROTOCOL, LEVAQUIN 500MG IV DAILY, DUONEBS QID, PULMICORT NEBS BID, VALIUM 5MG PO TID PRN, LOVENOX 40MG SC DAILY, NORCO 7.5/325MG PO Q6H PRN, TORADOL 30MG IV Q8H PRN, PROTONIX 40MG IV DAILY, MAGIC MOUTHWASH QID PRN. PHYSICAL THERAPY CONTINUES TO REPORT THAT PATIENT WOULD BENEFIT FROM LTC PLACEMENT AND CONTINUED PT SERVICES TO FACILITATE HIGHEST LEVEL OF FUNCTION PRIOR TO RETURNING HOME. WE ARE IN AGREEMENT AND CASE MANAGEMENT IS ARRANGING PLACEMENT. PATIENT HAS BEEN COOPERATIVE WITH PHYSICAL THERAPY. OTHERWISE, WE WILL CONTINUE WITH CURRENT PLAN OF CARE. WE WILL FOLLOW-UP WITH AM LABS AND CHEST XRAY AND CONTINUE TO MONITOR. TIME SPENT ON CLINICAL ASSESSMENT, REVIWING LABS AND IMAGING, DECISION MAKING, AND DOCUMENTATION GREATER THAN 45 MINUTES. - Past Medical Family Social History Past Med/Fam/Surg Hx: No changes since H&P Allergies: Allergies aspirin Allergy (Verified 12/02/21 15:35) - Review of Systems ROS: No change since H&P - Vital Signs and I&O's Vital Signs: Temperature 98.0 F Pulse Rate [Left Radial] 84 Pulse Rate 91 Respiratory Rate 20 Blood Pressure [Left Arm] 150/72 Blood Pressure 113/66 O2 Sat by Pulse Oximetry 95 Intake and Output: Intake & Output 12/15/21 12/16/21 12/17/21 12/18/21 11:59 11:59 11:59 11:59 Intake Total 980 / 980 763 / 763 1289 / 1289 Balance 980 / 980 763 / 763 1289 / 1289 - Physical Exam Oriented: Person, Place Eyes: Normal Ear: Normal Nose: Normal Throat: Normal, Other (LEFT SIDE NECK SWOLLEN ) Respiratory: Generalized, Diminished Cardiovascular: Normal : Normal Auscultation: Bowel Sounds: Normal Palpation: Normal Tenderness: Normal Skin: Decreased Turgur Musculoskeletal: Normal Psychiatric: Normal Mood Description: Calm Affect: Normal Speech Pattern: Clear, Appropriate - Laboratory and Diagnostics Result Diagrams: 12/17/21 05:49 12/17/21 05:49 Labs: Laboratory WBC 4.8 X10^3/uL (3.6-10.0) 12/17/21 05:49 RBC 3.74 X10^6/uL (3.5-5.4) 12/17/21 05:49 Hgb 11.2 g/dL (12.0-16.0) L 12/17/21 05:49 Hct 33.5 % (36.0-47.0) L 12/17/21 05:49 MCV 89.4 fL (80.0-100.0) 12/17/21 05:49 MCH 30.0 pg (27.0-34.0) 12/17/21 05:49 MCHC 33.5 g/dL (33.0-35.0) 12/17/21 05:49 RDW 15.7 % (11.6-16.5) 12/17/21 05:49 Plt Count 159 X10^3/uL (150.0-450.0) 12/17/21 05:49 Plt Count Comment Adequate (ADEQUATE) 12/16/21 05:03 MPV 10.2 fL (7.4-11.0) 12/17/21 05:49 Neut % (Auto) 60.6 % (42.0-75.0) 12/17/21 05:49 Lymph % (Auto) 22.0 % (21.0-51.0) 12/17/21 05:49 [place] % (Auto) 13.3 % (0.0-13.0) H 12/17/21 05:49 Eos % (Auto) 3.0 % (0.9-2.9) H 12/17/21 05:49 Baso % (Auto) 1.1 % (0.2-1.0) H 12/17/21 05:49 Neut # (Auto) 2.9 x10^3/uL (2.2-4.8) 12/17/21 05:49 Lymph # (Auto) 1.1 X10^3/uL (1.3-2.9) L 12/17/21 05:49 [place] # (Auto) 0.6 x10^3/uL (0.3-0.8) 12/17/21 05:49 Eos # (Auto) 0.1 x10^3/uL (0.0-0.2) 12/17/21 05:49 Baso # (Auto) 0.1 X10^3/uL (0.0-0.1) 12/17/21 05:49 Absolute Nucleated RBC 0.0 /100WBC 12/17/21 05:49 Plt Morphology Comment Normal (NORMAL) 12/16/21 05:03 RBC Morphology Normal (NORMAL) 12/16/21 05:03 D-Dimer 1.79 ug/ml (0.0-0.57) H 12/03/21 04:29 Sodium 136 mmol/L (136-145) 12/17/21 05:49 Corrected Sodium TNP 12/17/21 05:49 Potassium 3.6 mmol/L (3.5-5.1) 12/17/21 05:49 Chloride 103 mmol/L (98-107) 12/17/21 05:49 Carbon Dioxide 23.9 mmol/L (21-32) 12/17/21 05:49 BUN 7 mg/dL (7-18) 12/17/21 05:49 Creatinine 0.68 mg/dL (0.55-1.02) 12/17/21 05:49 Est GFR (MDRD) Af Amer > 60 (>60) 12/17/21 05:49 Est GFR (MDRD) Non-Af > 60 (>60) 12/17/21 05:49 Glucose 92 mg/dL (65-99) 12/17/21 05:49 POC Glucose (mg/dL) 183 mg/dL (65-99) H 12/14/21 18:24 Calcium 8.7 mg/dL (8.5-10.1) 12/17/21 05:49 Corrected Calcium 9.4 mg/dL (8.5-10.1) 12/17/21 05:49 Magnesium 2.1 mg/dL (1.7-2.9) 12/13/21 05:30 Total Bilirubin 0.50 mg/dL (0.2-1.0) 12/17/21 05:49 AST 17 Units/L (15-37) 12/17/21 05:49 ALT 11 Units/L (12-78) L 12/17/21 05:49 Alkaline Phosphatase 85 Units/L (46-116) 12/17/21 05:49 Creatine Kinase 25 Units/L (26-192) L 12/03/21 04:29 Troponin I High Sens 32.1 ng/L (4.0-60.0) 12/03/21 04:29 C-Reactive Protein 4.00 mg/L (0-3.0) H 12/08/21 04:48 B-Natriuretic Peptide 286 pg/mL (0-79) H 12/08/21 04:48 Total Protein 6.9 g/dL (6.4-8.2) 12/17/21 05:49 Albumin 3.1 g/dL (3.4-5.0) L 12/17/21 05:49 Globulin 3.8 g/dL (2.5-4.5) 12/17/21 05:49 Albumin/Globulin Ratio 0.8 Ratio (1.1-2.1) L 12/17/21 05:49 Specimen Type Clean catch urine 12/02/21 16:48 Urine Color Yellow (YELLOW) 12/02/21 16:48 Urine Appearance Slightly hazy (CLEAR) 12/02/21 16:48 Urine pH 6.0 (5.0 - 8.0) 12/02/21 16:48 Ur Specific [place] 1.025 (1.000-1.030) 12/02/21 16:48 Urine Protein 4+ (NEGATIVE) 12/02/21 16:48 Urine Glucose (UA) Negative (NEGATIVE) 12/02/21 16:48 Urine Ketones Negative (NEGATIVE) 12/02/21 16:48 Urine Blood 1+ (NEGATIVE) 12/02/21 16:48 Urine Nitrite Negative (NEGATIVE) 12/02/21 16:48 Urine Bilirubin Negative (NEGATIVE) 12/02/21 16:48 Urine Urobilinogen Normal (NORMAL) 12/02/21 16:48 Ur Leukocyte Esterase Negative (NEGATIVE) 12/02/21 16:48 Urine RBC 3-5 /HPF (0-3) A 12/02/21 16:48 Urine WBC None seen /HPF (0-5) 12/02/21 16:48 Ur Squamous Epith Cells Rare /HPF (NEGATIVE) 12/02/21 16:48 Amorphous Sediment 3+ /HPF (NEGATIVE) 12/02/21 16:48 Urine Bacteria Trace /HPF (NEGATIVE) 12/02/21 16:48 Hyaline Casts Few /LPF (NEGATIVE) 12/02/21 16:48 Granular Casts Moderate /LPF (NEGATIVE) 12/02/21 16:48 Urine Mucus Few /HPF (NEGATIVE) 12/02/21 16:48 Ur Culture Indicated? No/not indicated 12/02/21 16:48 Salicylates < 2.8 mg/dL (2.8-20) L 12/02/21 15:57 Urine Opiates Screen Negative (NEG=<300) 12/02/21 16:48 Urine Methadone Screen Negative (NEG=<300) 12/02/21 16:48 Acetaminophen 0.0 ug/mL (10-30) L 12/02/21 15:57 Ur Barbiturates Screen Negative (NEG=<200) 12/02/21 16:48 Ur Phencyclidine Scrn Negative (NEG=<25) 12/02/21 16:48 Ur Amphetamines Screen Negative (NEG=<1000) 12/02/21 16:48 U Benzodiazepines Scrn Positive (NEG=<200) A 12/02/21 16:48 Urine Cocaine Screen Negative (NEG=<300) 12/02/21 16:48 U Marijuana (THC) Screen Negative (NEG=<50) 12/02/21 16:48 Ethyl Alcohol mg/dL < 3 mg/dL (0-19.9) 12/02/21 15:57 SARS-CoV-2 (PCR) Negative (NEGATIVE) 12/12/21 10:02 SARS CoV-2 RNA Rapid WINTER Positive (NEGATIVE) A 12/02/21 17:40 - Plan (1) Acute metabolic encephalopathy Status: Acute Plan: SUPPLEMENTAL OXYGEN, NORMAL SALINE AT 20 ML/HR, THE POTASSIUM AND MAGNESIUM PROTOCOL, LEVAQUIN 500MG IV DAILY, DUONEBS QID, PULMICORT NEBS BID, VALIUM 5MG PO TID PRN, LOVENOX 40MG SC DAILY, NORCO 7.5/325MG PO Q6H PRN, TORADOL 30MG IV Q8H, PROTONIX 40MG IV DAILY. 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
[2021-12-17] MEDS: AUGMENTIN 875 MG/125 MG TAB PO SCH ×2 (13:00→20:19)
[2021-12-17] MEDS: ILOTYCIN OPHTH OINT LEFTEYE SCH ×3 (13:00→20:20)
[2021-12-18 06:32] LABS: BASOPHILS % (AUTO) 0.8 % (0.2-1.0); EOSINOPHILS # (AUTO) 0.1 x10^3/uL (0.0-0.2); EOSINOPHILS % (AUTO) 2.8 % (0.9-2.9); HEMATOCRIT 33.6 % (36.0-47.0); HEMOGLOBIN 11.4 g/dL (12.0-16.0); LYMPHOCYTES # (AUTO) 0.8 X10^3/uL (1.3-2.9); LYMPHOCYTES % (AUTO) 15.5 % (21.0-51.0); MEAN CORPUSCULAR HEMOGLOBIN 30.3 pg (27.0-34.0); MEAN CORPUSCULAR HGB CONC 33.9 g/dL (33.0-35.0); MEAN CORPUSCULAR VOLUME 89.3 fL (80.0-100.0); MEAN PLATELET VOLUME 10.6 fL (7.4-11.0); MONOCYTES # (AUTO) 0.7 x10^3/uL (0.3-0.8); MONOCYTES % (AUTO) 13.3 % (0.0-13.0); NEUTROPHILS # (AUTO) 3.5 x10^3/uL (2.2-4.8); NEUTROPHILS % (AUTO) 67.6 % (42.0-75.0); RED BLOOD COUNT 3.76 X10^6/uL (3.5-5.4); WHITE BLOOD COUNT 5.1 X10^3/uL (3.6-10.0)
[2021-12-18 06:43] LABS: ALANINE AMINOTRANSFERASE 13 Units/L (12-78); ALKALINE PHOSPHATASE 86 Units/L (46-116); ASPARTATE AMINO TRANSFERASE 14 Units/L (15-37); BLOOD UREA NITROGEN 9 mg/dL (7-18); CALCIUM 8.6 mg/dL (8.5-10.1); CARBON DIOXIDE 26.5 mmol/L (21-32); CHLORIDE 106 mmol/L (98-107); COR CA(FOR HYPOALB) 9.4 mg/dL (8.5-10.1); COR NA(FOR HYPERGLY) 140 mmol/L (136-145); CREATININE 0.71 mg/dL (0.55-1.02); SODIUM 140 mmol/L (136-145); TOTAL PROTEIN 6.8 g/dL (6.4-8.2); eGFR NON BLACK RACES > 60 (>60)
[2021-12-18] MEDS: DUONEB 0.5 MG/3 MG (3 mL) NEB SCH ×4 (08:20→21:00)
[2021-12-18] MEDS: PULMICORT NEB TX 0.5 MG NEB SCH ×2 (08:20→21:00)
[2021-12-18] MEDS: PROzac PO SCH (08:54)
[2021-12-18] MEDS: LEVAQUIN TAB 500 MG PO SCH (08:54)
[2021-12-18] MEDS: AUGMENTIN 875 MG/125 MG TAB PO SCH ×2 (08:54→20:09)
[2021-12-18] MEDS: SYNTHROID 25 mcg TAB PO SCH (08:54)
[2021-12-18] MEDS: ILOTYCIN OPHTH OINT LEFTEYE SCH ×4 (08:55→20:10)
[2021-12-18] MEDS: COLACE CAP 100 MG PO SCH ×2 (08:55→20:09)
[2021-12-18] MEDS: MEGACE PO SCH ×2 (08:56→20:10)
[2021-12-18] MEDS: PROTONIX TAB 40 MG PO SCH (08:56)
[2021-12-18] MEDS: NORCO 7.5/325 MG TAB PO PRN ×2 (09:00→17:00)
[2021-12-18] MEDS: LOVENOX INJ 40 MG SYR SC SCH (14:32)
[2021-12-18] MEDS: VALIUM PO PRN (20:10)
[2021-12-19] MEDS: NORCO 7.5/325 MG TAB PO PRN ×2 (03:49→20:23)
[2021-12-19] MEDS: VALIUM PO PRN ×2 (03:50→11:52)
[2021-12-19 05:57] LABS: BASOPHILS % (AUTO) 0.7 % (0.2-1.0); EOSINOPHILS # (AUTO) 0.1 x10^3/uL (0.0-0.2); EOSINOPHILS % (AUTO) 2.7 % (0.9-2.9); HEMATOCRIT 33.5 % (36.0-47.0); HEMOGLOBIN 11.2 g/dL (12.0-16.0); LYMPHOCYTES # (AUTO) 0.8 X10^3/uL (1.3-2.9); LYMPHOCYTES % (AUTO) 17.6 % (21.0-51.0); MEAN CORPUSCULAR HEMOGLOBIN 29.7 pg (27.0-34.0); MEAN CORPUSCULAR HGB CONC 33.3 g/dL (33.0-35.0); MEAN CORPUSCULAR VOLUME 89.2 fL (80.0-100.0); MEAN PLATELET VOLUME 10.2 fL (7.4-11.0); MONOCYTES # (AUTO) 0.6 x10^3/uL (0.3-0.8); MONOCYTES % (AUTO) 14.2 % (0.0-13.0); NEUTROPHILS # (AUTO) 2.8 x10^3/uL (2.2-4.8); NEUTROPHILS % (AUTO) 64.8 % (42.0-75.0); RED BLOOD COUNT 3.76 X10^6/uL (3.5-5.4); WHITE BLOOD COUNT 4.3 X10^3/uL (3.6-10.0)
[2021-12-19 06:03] LABS: ALANINE AMINOTRANSFERASE 14 Units/L (12-78); ALBUMIN 3.2 g/dL (3.4-5.0); ALKALINE PHOSPHATASE 80 Units/L (46-116); ASPARTATE AMINO TRANSFERASE 17 Units/L (15-37); BLOOD UREA NITROGEN 6 mg/dL (7-18); CALCIUM 8.7 mg/dL (8.5-10.1); CARBON DIOXIDE 26.8 mmol/L (21-32); CHLORIDE 104 mmol/L (98-107); COR CA(FOR HYPOALB) 9.3 mg/dL (8.5-10.1); COR NA(FOR HYPERGLY) 139 mmol/L (136-145); CREATININE 0.76 mg/dL (0.55-1.02); SODIUM 138 mmol/L (136-145); TOTAL PROTEIN 7.1 g/dL (6.4-8.2); eGFR NON BLACK RACES > 60 (>60)
[2021-12-19] MEDS: DUONEB 0.5 MG/3 MG (3 mL) NEB SCH ×4 (08:04→21:00)
[2021-12-19] MEDS: PULMICORT NEB TX 0.5 MG NEB SCH ×2 (08:04→21:00)
[2021-12-19] MEDS: LOVENOX INJ 40 MG SYR SC SCH (08:27)
[2021-12-19] MEDS: SYNTHROID 25 mcg TAB PO SCH (08:27)
[2021-12-19] MEDS: LEVAQUIN TAB 500 MG PO SCH (08:27)
[2021-12-19] MEDS: PROzac PO SCH (08:27)
[2021-12-19] MEDS: PROTONIX TAB 40 MG PO SCH (08:27)
[2021-12-19] MEDS: COLACE CAP 100 MG PO SCH ×2 (08:27→20:18)
[2021-12-19] MEDS: ILOTYCIN OPHTH OINT LEFTEYE SCH ×4 (08:28→20:19)
[2021-12-19] MEDS: MEGACE PO SCH ×2 (08:28→20:19)
[2021-12-19] MEDS: AUGMENTIN 875 MG/125 MG TAB PO SCH ×2 (08:33→20:18)
--- NOTE | 2021-12-19 09:47 | PCM.PROG ---
Progress Note - Progress Note for Day of Date of Exam: 12/17/21 - Subjective Subjective: WAS ADMITTED FOR TREATMENT OF ACUTE METABOLIC ENCEPHALOPATHY, PNEUMONIA DUE TO COVID-19, AND GENERALIZED WEAKNESS. SHE HAS A PMH OF DEMENTIA AND HAS RECENTLY HAD A NECK MASS REMOVED DUE TO SQUAMOUS CELL CARCINOMA. TODAY, SHE IS ALERT, LYING IN BED ON MORNING ROUNDS. SHE ANSWERS ALL QUESTIONS APPROPRIATELY AND FOLLOWS COMMANDS. PATIENT HAS NOT EXHIBITED ANY AGGRESSIVE OR COMBATIVE BEHAVIORS THIS MORNING OR THROUGHOUT THE NIGHT. SHE COMPLAINS OF BILATERAL EAR PAIN AND SORE THROAT. ON EXAMINATION, SHE CONTINUES WITH SWELLING TO THE LEFT SIDE OF THE NECK. HEART IS REGULAR IN RATE AND RHYTHM. BILATERAL LUNGS ARE NOTED WITH DIMINISHED LUNG SOUNDS THROUGHOUT. ABDOMEN IS FLAT, SOFT, AND NON-TENDER WITH NORMAL BOWEL SOUNDS NOTED IN ALL QUADRANTS. NO UPPER OR LOWER EXTREMITY EDEMA NOTED. GOOD MOVEMENT NOTED TO ALL EXTREMITIES. HER VITALS THIS MORNING ARE: 98.0-84-20-96%-150/72. LABS WERE OBTAINED. WBC 4.8, RBC 3.74, HGB 11.2, HCT 33.5, SODIUM 136, POTASSIUM 3.6, CHLORIDE 103, BUN 7, CREATININE 0.68, GLUCOSE 92, CALCIUM 8.7, AST 17, ALT 11, ALK PHOS 85, TOTAL PROTEIN 6.9, ALBUMIN 3.1. SHE IS CURRENTLY RECEIVING NORMAL SALINE AT 80 ML/HR, THE POTASSIUM AND MAGNESIUM PROTOCOL, LEVAQUIN 500MG IV DAILY, DUONEBS QID, PULMICORT NEBS BID, VALIUM 5MG PO TID PRN, LOVENOX 40MG SC DAILY, NORCO 7.5/325MG PO Q6H PRN, TORADOL 30MG IV Q8H PRN, PROTONIX 40MG IV DAILY, MAGIC MOUTHWASH QID PRN. PHYSICAL THERAPY CONTINUES TO REPORT THAT PATIENT WOULD BENEFIT FROM LTC PLACEMENT AND CONTINUED PT SERVICES TO FACILITATE HIGHEST LEVEL OF FUNCTION PRIOR TO RETURNING HOME. WE ARE IN AGREEMENT AND CASE MANAGEMENT IS ARRANGING PLACEMENT. PATIENT HAS BEEN COOPERATIVE WITH PHYSICAL THERAPY. TODAY, WE WILL ADD ERYTHROMYCIN OPTHT OINT TO THE LEFT EYE QID AND AUGMENTIN 875/125MG PO BID X 10 DAYS. OTHERWISE, WE WILL CONTINUE WITH CURRENT PLAN OF CARE. WE WILL FOLLOW-UP WITH AM LABS AND CHEST XRAY AND CONTINUE TO MONITOR. TIME SPENT ON CLINICAL ASSESSMENT, REVIWING LABS AND IMAGING, DECISION MAKING, AND DOCUMENTATION GREATER THAN 45 MINUTES. - Past Medical Family Social History Past Med/Fam/Surg Hx: No changes since H&P Allergies: Allergies aspirin Allergy (Verified 12/02/21 15:35) - Review of Systems ROS: No change since H&P - Vital Signs and I&O's Vital Signs: Temperature 98.3 F Pulse Rate [Left Radial] 76 Pulse Rate 80 Respiratory Rate 18 Blood Pressure [Left Arm] 131/60 Blood Pressure 113/66 O2 Sat by Pulse Oximetry 96 Intake and Output: Intake & Output 12/16/21 12/17/21 12/18/21 12/19/21 11:59 11:59 11:59 11:59 Intake Total 763 / 763 1289 / 1289 1043 / 1043 1400 / 1400 Balance 763 / 763 1289 / 1289 1043 / 1043 1400 / 1400 - Physical Exam Oriented: Person, Place Eyes: Normal Ear: Normal Nose: Normal Throat: Normal, Other (LEFT SIDE NECK SWOLLEN ) Respiratory: Generalized, Diminished Cardiovascular: Normal : Normal Auscultation: Bowel Sounds: Normal Palpation: Normal Tenderness: Normal Skin: Decreased Turgur Musculoskeletal: Normal Psychiatric: Normal Mood Description: Calm Affect: Normal Speech Pattern: Clear, Appropriate - Laboratory and Diagnostics Result Diagrams: 12/19/21 05:30 12/19/21 05:30 Labs: Laboratory WBC 4.3 X10^3/uL (3.6-10.0) 12/19/21 05:30 RBC 3.76 X10^6/uL (3.5-5.4) 12/19/21 05:30 Hgb 11.2 g/dL (12.0-16.0) L 12/19/21 05:30 Hct 33.5 % (36.0-47.0) L 12/19/21 05:30 MCV 89.2 fL (80.0-100.0) 12/19/21 05:30 MCH 29.7 pg (27.0-34.0) 12/19/21 05:30 MCHC 33.3 g/dL (33.0-35.0) 12/19/21 05:30 RDW 16.0 % (11.6-16.5) 12/19/21 05:30 Plt Count 150 X10^3/uL (150.0-450.0) 12/19/21 05:30 Plt Count Comment Adequate (ADEQUATE) 12/16/21 05:03 MPV 10.2 fL (7.4-11.0) 12/19/21 05:30 Neut % (Auto) 64.8 % (42.0-75.0) 12/19/21 05:30 Lymph % (Auto) 17.6 % (21.0-51.0) L 12/19/21 05:30 [place] % (Auto) 14.2 % (0.0-13.0) H 12/19/21 05:30 Eos % (Auto) 2.7 % (0.9-2.9) 12/19/21 05:30 Baso % (Auto) 0.7 % (0.2-1.0) 12/19/21 05:30 Neut # (Auto) 2.8 x10^3/uL (2.2-4.8) 12/19/21 05:30 Lymph # (Auto) 0.8 X10^3/uL (1.3-2.9) L 12/19/21 05:30 [place] # (Auto) 0.6 x10^3/uL (0.3-0.8) 12/19/21 05:30 Eos # (Auto) 0.1 x10^3/uL (0.0-0.2) 12/19/21 05:30 Baso # (Auto) 0.0 X10^3/uL (0.0-0.1) 12/19/21 05:30 Absolute Nucleated RBC 0.1 /100WBC 12/19/21 05:30 Plt Morphology Comment Normal (NORMAL) 12/16/21 05:03 RBC Morphology Normal (NORMAL) 12/16/21 05:03 D-Dimer 1.79 ug/ml (0.0-0.57) H 12/03/21 04:29 Sodium 138 mmol/L (136-145) 12/19/21 05:30 Corrected Sodium 139 mmol/L (136-145) 12/19/21 05:30 Potassium 4.1 mmol/L (3.5-5.1) 12/19/21 05:30 Chloride 104 mmol/L (98-107) 12/19/21 05:30 Carbon Dioxide 26.8 mmol/L (21-32) 12/19/21 05:30 BUN 6 mg/dL (7-18) L 12/19/21 05:30 Creatinine 0.76 mg/dL (0.55-1.02) 12/19/21 05:30 Est GFR (MDRD) Af Amer > 60 (>60) 12/19/21 05:30 Est GFR (MDRD) Non-Af > 60 (>60) 12/19/21 05:30 Glucose 128 mg/dL (65-99) H 12/19/21 05:30 POC Glucose (mg/dL) 183 mg/dL (65-99) H 12/14/21 18:24 Calcium 8.7 mg/dL (8.5-10.1) 12/19/21 05:30 Corrected Calcium 9.3 mg/dL (8.5-10.1) 12/19/21 05:30 Magnesium 2.1 mg/dL (1.7-2.9) 12/13/21 05:30 Total Bilirubin 0.50 mg/dL (0.2-1.0) 12/19/21 05:30 AST 17 Units/L (15-37) 12/19/21 05:30 ALT 14 Units/L (12-78) 12/19/21 05:30 Alkaline Phosphatase 80 Units/L (46-116) 12/19/21 05:30 Creatine Kinase 25 Units/L (26-192) L 12/03/21 04:29 Troponin I High Sens 32.1 ng/L (4.0-60.0) 12/03/21 04:29 C-Reactive Protein 4.00 mg/L (0-3.0) H 12/08/21 04:48 B-Natriuretic Peptide 286 pg/mL (0-79) H 12/08/21 04:48 Total Protein 7.1 g/dL (6.4-8.2) 12/19/21 05:30 Albumin 3.2 g/dL (3.4-5.0) L 12/19/21 05:30 Globulin 3.9 g/dL (2.5-4.5) 12/19/21 05:30 Albumin/Globulin Ratio 0.8 Ratio (1.1-2.1) L 12/19/21 05:30 Specimen Type Clean catch urine 12/02/21 16:48 Urine Color Yellow (YELLOW) 12/02/21 16:48 Urine Appearance Slightly hazy (CLEAR) 12/02/21 16:48 Urine pH 6.0 (5.0 - 8.0) 12/02/21 16:48 Ur Specific [place] 1.025 (1.000-1.030) 12/02/21 16:48 Urine Protein 4+ (NEGATIVE) 12/02/21 16:48 Urine Glucose (UA) Negative (NEGATIVE) 12/02/21 16:48 Urine Ketones Negative (NEGATIVE) 12/02/21 16:48 Urine Blood 1+ (NEGATIVE) 12/02/21 16:48 Urine Nitrite Negative (NEGATIVE) 12/02/21 16:48 Urine Bilirubin Negative (NEGATIVE) 12/02/21 16:48 Urine Urobilinogen Normal (NORMAL) 12/02/21 16:48 Ur Leukocyte Esterase Negative (NEGATIVE) 12/02/21 16:48 Urine RBC 3-5 /HPF (0-3) A 12/02/21 16:48 Urine WBC None seen /HPF (0-5) 12/02/21 16:48 Ur Squamous Epith Cells Rare /HPF (NEGATIVE) 12/02/21 16:48 Amorphous Sediment 3+ /HPF (NEGATIVE) 12/02/21 16:48 Urine Bacteria Trace /HPF (NEGATIVE) 12/02/21 16:48 Hyaline Casts Few /LPF (NEGATIVE) 12/02/21 16:48 Granular Casts Moderate /LPF (NEGATIVE) 12/02/21 16:48 Urine Mucus Few /HPF (NEGATIVE) 12/02/21 16:48 Ur Culture Indicated? No/not indicated 12/02/21 16:48 Salicylates < 2.8 mg/dL (2.8-20) L 12/02/21 15:57 Urine Opiates Screen Negative (NEG=<300) 12/02/21 16:48 Urine Methadone Screen Negative (NEG=<300) 12/02/21 16:48 Acetaminophen 0.0 ug/mL (10-30) L 12/02/21 15:57 Ur Barbiturates Screen Negative (NEG=<200) 12/02/21 16:48 Ur Phencyclidine Scrn Negative (NEG=<25) 12/02/21 16:48 Ur Amphetamines Screen Negative (NEG=<1000) 12/02/21 16:48 U Benzodiazepines Scrn Positive (NEG=<200) A 12/02/21 16:48 Urine Cocaine Screen Negative (NEG=<300) 12/02/21 16:48 U Marijuana (THC) Screen Negative (NEG=<50) 12/02/21 16:48 Ethyl Alcohol mg/dL < 3 mg/dL (0-19.9) 12/02/21 15:57 SARS-CoV-2 (PCR) Negative (NEGATIVE) 12/12/21 10:02 SARS CoV-2 RNA Rapid [place] Positive (NEGATIVE) A 12/02/21 17:40 - Plan (1) Acute metabolic encephalopathy Status: Acute Plan: SUPPLEMENTAL OXYGEN, NORMAL SALINE AT 20 ML/HR, THE POTASSIUM AND MAGNESIUM PROTOCOL, AUGMENTIN 875/125MG PO BID X 10 DAYS, ERYTHROMYCIN OINTMENT QID, DUONEBS QID, PULMICORT NEBS BID, VALIUM 5MG PO TID PRN, LOVENOX 40MG SC DAILY, NORCO 7.5/325MG PO Q6H PRN, TORADOL 30MG IV Q8H, PROTONIX 40MG IV DAILY. 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
--- NOTE | 2021-12-19 09:53 | PCM.PROG ---
Progress Note - Progress Note for Day of Date of Exam: 12/18/21 - Subjective Subjective: IS CURRENTLY BEING TREATED FOR ACUTE METABOLIC ENCEPHALOPATHY, PNEUMONIA DUE TO COVID-19, ACUTE OTITIS MEDIA, AND GENERALIZED WEAKNESS. SHE HAS A PMH OF DEMENTIA AND HAS RECENTLY HAD A NECK MASS REMOVED DUE TO SQUAMOUS CELL CARCINOMA. TODAY, SHE IS ALERT, LYING IN BED ON MORNING ROUNDS. SHE ANSWERS ALL QUESTIONS APPROPRIATELY AND FOLLOWS COMMANDS. PATIENT HAS NOT EXHIBITED ANY AGGRESSIVE OR COMBATIVE BEHAVIORS THIS MORNING OR THROUGHOUT THE NIGHT. SHE CONTINUES TO COMPLAIN OF BILATERAL EAR PAIN, BUT REPORTS SLIGHT IMPROVEMENT SINCE YESTERDAY. ON EXAMINATION, SHE CONTINUES WITH SWELLING TO THE LEFT SIDE OF THE NECK. HEART IS REGULAR IN RATE AND RHYTHM. BILATERAL LUNGS ARE NOTED WITH DIMINISHED LUNG SOUNDS THROUGHOUT. ABDOMEN IS FLAT, SOFT, AND NON- TENDER WITH NORMAL BOWEL SOUNDS NOTED IN ALL QUADRANTS. NO UPPER OR LOWER EXTREMITY EDEMA NOTED. GOOD MOVEMENT NOTED TO ALL EXTREMITIES. HER VITALS THIS MORNING ARE: 98.9-90-20-96%-146/57. LABS WERE OBTAINED. WBC 5.1, RBC 3.76, HGB 11.4, HCT 33.6, PLT COUNT 159, SODIUM 140, POTASSIUM 4.1, BUN 9, CREATININE 0.71, GLUCOSE 116, CALCIUM 8.6, AST 14, ALT 13, ALK PHOS 86, TOTAL PROTEIN 6.8, ALBUMIN 3.0. SHE IS CURRENTLY RECEIVING NORMAL SALINE AT 80 ML/HR, THE POTASSIUM AND MAGNESIUM PROTOCOL, AUGMENTIN 875/125MG PO BID, ERYTHROMYCIN OINTMENT QID, DUONEBS QID, PULMICORT NEBS BID, VALIUM 5MG PO TID PRN, LOVENOX 40MG SC DAILY, NORCO 7.5/325MG PO Q6H PRN, TORADOL 30MG IV Q8H PRN, PROTONIX 40MG IV DAILY, MAGIC MOUTHWASH QID PRN. PHYSICAL THERAPY CONTINUES TO REPORT THAT PATIENT WOULD BENEFIT FROM AND CONTINUED PT SERVICES TO FACILITATE HIGHEST LEVEL OF FUNCTION. CASE MANAGEMENT ATTEMPTED PLACEMENT AT NUMEROUS FACILITIES. PATIENT HAS NOT BEEN ACCEPTED AT ANY FACILITY. WE DISCUSSED THIS WITH HER FAMILY MEMBERS AND DISCUSSED THAT PATIENT WILL GO HOME WITH HOME HEALTH AND PHYSICAL THERAPY UPON DISCHARGE. PATIENTS NIECE REPORTS THAT SHE WILL HAVE TO SPEAK WITH OTHER FAMILY MEMBERS REGARDING DISCHARGE PLAN. OTHERWISE, WE WILL CONTINUE WITH CURRENT PLAN OF CARE TODAY. WE WILL FOLLOW-UP WITH AM LABS AND CONTINUE TO MONITOR. TIME SPENT ON CLINICAL ASSESSMENT, REVIWING LABS AND IMAGING, DECISION MAKING, AND DOCUMENTATION GREATER THAN 45 MINUTES. - Past Medical Family Social History Past Med/Fam/Surg Hx: No changes since H&P Allergies: Allergies aspirin Allergy (Verified 12/02/21 15:35) - Review of Systems ROS: No change since H&P - Vital Signs and I&O's Vital Signs: Temperature 98.3 F Pulse Rate [Left Radial] 76 Pulse Rate 80 Respiratory Rate 18 Blood Pressure [Left Arm] 131/60 Blood Pressure 113/66 O2 Sat by Pulse Oximetry 96 Intake and Output: Intake & Output 12/16/21 12/17/21 12/18/21 12/19/21 11:59 11:59 11:59 11:59 Intake Total 763 / 763 1289 / 1289 1043 / 1043 1400 / 1400 Balance 763 / 763 1289 / 1289 1043 / 1043 1400 / 1400 - Physical Exam Oriented: Person, Place Eyes: Normal Ear: Normal Nose: Normal Throat: Normal, Other (LEFT SIDE NECK SWOLLEN ) Respiratory: Generalized, Diminished Cardiovascular: Normal : Normal Auscultation: Bowel Sounds: Normal Palpation: Normal Tenderness: Normal Skin: Decreased Turgur Musculoskeletal: Normal Psychiatric: Normal Mood Description: Calm Affect: Normal Speech Pattern: Clear, Appropriate - Laboratory and Diagnostics Result Diagrams: 12/19/21 05:30 12/19/21 05:30 Labs: Laboratory WBC 4.3 X10^3/uL (3.6-10.0) 12/19/21 05:30 RBC 3.76 X10^6/uL (3.5-5.4) 12/19/21 05:30 Hgb 11.2 g/dL (12.0-16.0) L 12/19/21 05:30 Hct 33.5 % (36.0-47.0) L 12/19/21 05:30 MCV 89.2 fL (80.0-100.0) 12/19/21 05:30 MCH 29.7 pg (27.0-34.0) 12/19/21 05:30 MCHC 33.3 g/dL (33.0-35.0) 12/19/21 05:30 RDW 16.0 % (11.6-16.5) 12/19/21 05:30 Plt Count 150 X10^3/uL (150.0-450.0) 12/19/21 05:30 Plt Count Comment Adequate (ADEQUATE) 12/16/21 05:03 MPV 10.2 fL (7.4-11.0) 12/19/21 05:30 Neut % (Auto) 64.8 % (42.0-75.0) 12/19/21 05:30 Lymph % (Auto) 17.6 % (21.0-51.0) L 12/19/21 05:30 [place] % (Auto) 14.2 % (0.0-13.0) H 12/19/21 05:30 Eos % (Auto) 2.7 % (0.9-2.9) 12/19/21 05:30 Baso % (Auto) 0.7 % (0.2-1.0) 12/19/21 05:30 Neut # (Auto) 2.8 x10^3/uL (2.2-4.8) 12/19/21 05:30 Lymph # (Auto) 0.8 X10^3/uL (1.3-2.9) L 12/19/21 05:30 [place] # (Auto) 0.6 x10^3/uL (0.3-0.8) 12/19/21 05:30 Eos # (Auto) 0.1 x10^3/uL (0.0-0.2) 12/19/21 05:30 Baso # (Auto) 0.0 X10^3/uL (0.0-0.1) 12/19/21 05:30 Absolute Nucleated RBC 0.1 /100WBC 12/19/21 05:30 Plt Morphology Comment Normal (NORMAL) 12/16/21 05:03 RBC Morphology Normal (NORMAL) 12/16/21 05:03 D-Dimer 1.79 ug/ml (0.0-0.57) H 12/03/21 04:29 Sodium 138 mmol/L (136-145) 12/19/21 05:30 Corrected Sodium 139 mmol/L (136-145) 12/19/21 05:30 Potassium 4.1 mmol/L (3.5-5.1) 12/19/21 05:30 Chloride 104 mmol/L (98-107) 12/19/21 05:30 Carbon Dioxide 26.8 mmol/L (21-32) 12/19/21 05:30 BUN 6 mg/dL (7-18) L 12/19/21 05:30 Creatinine 0.76 mg/dL (0.55-1.02) 12/19/21 05:30 Est GFR (MDRD) Af Amer > 60 (>60) 12/19/21 05:30 Est GFR (MDRD) Non-Af > 60 (>60) 12/19/21 05:30 Glucose 128 mg/dL (65-99) H 12/19/21 05:30 POC Glucose (mg/dL) 183 mg/dL (65-99) H 12/14/21 18:24 Calcium 8.7 mg/dL (8.5-10.1) 12/19/21 05:30 Corrected Calcium 9.3 mg/dL (8.5-10.1) 12/19/21 05:30 Magnesium 2.1 mg/dL (1.7-2.9) 12/13/21 05:30 Total Bilirubin 0.50 mg/dL (0.2-1.0) 12/19/21 05:30 AST 17 Units/L (15-37) 12/19/21 05:30 ALT 14 Units/L (12-78) 12/19/21 05:30 Alkaline Phosphatase 80 Units/L (46-116) 12/19/21 05:30 Creatine Kinase 25 Units/L (26-192) L 12/03/21 04:29 Troponin I High Sens 32.1 ng/L (4.0-60.0) 12/03/21 04:29 C-Reactive Protein 4.00 mg/L (0-3.0) H 12/08/21 04:48 B-Natriuretic Peptide 286 pg/mL (0-79) H 12/08/21 04:48 Total Protein 7.1 g/dL (6.4-8.2) 12/19/21 05:30 Albumin 3.2 g/dL (3.4-5.0) L 12/19/21 05:30 Globulin 3.9 g/dL (2.5-4.5) 12/19/21 05:30 Albumin/Globulin Ratio 0.8 Ratio (1.1-2.1) L 12/19/21 05:30 Specimen Type Clean catch urine 12/02/21 16:48 Urine Color Yellow (YELLOW) 12/02/21 16:48 Urine Appearance Slightly hazy (CLEAR) 12/02/21 16:48 Urine pH 6.0 (5.0 - 8.0) 12/02/21 16:48 Ur Specific [place] 1.025 (1.000-1.030) 12/02/21 16:48 Urine Protein 4+ (NEGATIVE) 12/02/21 16:48 Urine Glucose (UA) Negative (NEGATIVE) 12/02/21 16:48 Urine Ketones Negative (NEGATIVE) 12/02/21 16:48 Urine Blood 1+ (NEGATIVE) 12/02/21 16:48 Urine Nitrite Negative (NEGATIVE) 12/02/21 16:48 Urine Bilirubin Negative (NEGATIVE) 12/02/21 16:48 Urine Urobilinogen Normal (NORMAL) 12/02/21 16:48 Ur Leukocyte Esterase Negative (NEGATIVE) 12/02/21 16:48 Urine RBC 3-5 /HPF (0-3) A 12/02/21 16:48 Urine WBC None seen /HPF (0-5) 12/02/21 16:48 Ur Squamous Epith Cells Rare /HPF (NEGATIVE) 12/02/21 16:48 Amorphous Sediment 3+ /HPF (NEGATIVE) 12/02/21 16:48 Urine Bacteria Trace /HPF (NEGATIVE) 12/02/21 16:48 Hyaline Casts Few /LPF (NEGATIVE) 12/02/21 16:48 Granular Casts Moderate /LPF (NEGATIVE) 12/02/21 16:48 Urine Mucus Few /HPF (NEGATIVE) 12/02/21 16:48 Ur Culture Indicated? No/not indicated 12/02/21 16:48 Salicylates < 2.8 mg/dL (2.8-20) L 12/02/21 15:57 Urine Opiates Screen Negative (NEG=<300) 12/02/21 16:48 Urine Methadone Screen Negative (NEG=<300) 12/02/21 16:48 Acetaminophen 0.0 ug/mL (10-30) L 12/02/21 15:57 Ur Barbiturates Screen Negative (NEG=<200) 12/02/21 16:48 Ur Phencyclidine Scrn Negative (NEG=<25) 12/02/21 16:48 Ur Amphetamines Screen Negative (NEG=<1000) 12/02/21 16:48 U Benzodiazepines Scrn Positive (NEG=<200) A 12/02/21 16:48 Urine Cocaine Screen Negative (NEG=<300) 12/02/21 16:48 U Marijuana (THC) Screen Negative (NEG=<50) 12/02/21 16:48 Ethyl Alcohol mg/dL < 3 mg/dL (0-19.9) 12/02/21 15:57 SARS-CoV-2 (PCR) Negative (NEGATIVE) 12/12/21 10:02 SARS CoV-2 RNA Rapid [place] Positive (NEGATIVE) A 12/02/21 17:40 - Plan (1) Acute metabolic encephalopathy Status: Acute Plan: SUPPLEMENTAL OXYGEN, NORMAL SALINE AT 20 ML/HR, THE POTASSIUM AND MAGNESIUM PROTOCOL, AUGMENTIN 875/125MG PO BID X 10 DAYS, ERYTHROMYCIN OINTMENT QID, DUONEBS QID, PULMICORT NEBS BID, VALIUM 5MG PO TID PRN, LOVENOX 40MG SC DAILY, NORCO 7.5/325MG PO Q6H PRN, TORADOL 30MG IV Q8H, PROTONIX 40MG IV DAILY. 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
[2021-12-20] MEDS: SYNTHROID 25 mcg TAB PO SCH (08:19)
[2021-12-20] MEDS: PROTONIX TAB 40 MG PO SCH (08:19)
[2021-12-20] MEDS: PROzac PO SCH (08:19)
[2021-12-20] MEDS: AUGMENTIN 875 MG/125 MG TAB PO SCH ×2 (08:19→20:02)
[2021-12-20] MEDS: COLACE CAP 100 MG PO SCH ×2 (08:19→20:03)
[2021-12-20] MEDS: ILOTYCIN OPHTH OINT LEFTEYE SCH ×4 (08:20→20:03)
[2021-12-20] MEDS: MEGACE PO SCH ×2 (08:20→20:03)
[2021-12-20] MEDS: LOVENOX INJ 40 MG SYR SC SCH (08:20)
[2021-12-20] MEDS: VALIUM PO PRN ×2 (08:30→20:02)
[2021-12-20] MEDS: PULMICORT NEB TX 0.5 MG NEB SCH (08:41)
[2021-12-20] MEDS: DUONEB 0.5 MG/3 MG (3 mL) NEB SCH (08:41)
--- NOTE | 2021-12-20 10:57 | PCM.PROG ---
Progress Note Progress Note for Day of Date of Exam: 12/20/21 Subjective Subjective: PT IS A 71 YEAR OLD FEMALE THAT IS CURRENTLY BEING TREATED FOR ACUTE METABOLIC ENCEPHALOPATHY, PNEUMONIA DUE TO COVID-19, ACUTE OTITIS MEDIA, AND GENERALIZED WEAKNESS. SHE HAS A PMH OF DEMENTIA AND HAS RECENTLY HAD A NECK MASS REMOVED DUE TO SQUAMOUS CELL CARCINOMA. THIS MORNING SHE IS SITTING UP IN BED COMFORTABLY. NO ACUTE EVENTS OVERNIGHT. SHE IS ALERT AND ORIENTED. LABS WERE OBTAINED. WBC 4.3, HGB 11.2, PLT COUNT 150, SODIUM 138, POTASSIUM 4.1, CREATININE 0.76, GLUCOSE 128. SHE IS CURRENTLY RECEIVING NORMAL SALINE AT 80 ML/HR, THE POTASSIUM AND MAGNESIUM PROTOCOL, AUGMENTIN 875/125MG PO BID, ERYTHROMYCIN OINTMENT QID, DUONEBS QID, PULMICORT NEBS BID, VALIUM 5MG PO TID PRN, LOVENOX 40MG SC DAILY, NORCO 7.5/325MG PO Q6H PRN, TORADOL 30MG IV Q8H PRN, PROTONIX 40MG IV DAILY, MAGIC MOUTHWASH QID PRN. PHYSICAL THERAPY CONTINUES TO REPORT THAT PATIENT WOULD BENEFIT FROM AND CONTINUED PT SERVICES TO FACILITATE HIGHEST LEVEL OF FUNCTION. CASE MANAGEMENT ATTEMPTED PLACEMENT AT NUMEROUS FACILITIES. PATIENT HAS NOT BEEN ACCEPTED AT ANY FACILITY. THIS HAS BEEN DISCUSSED WITH HER FAMILY MEMBERS AND DISCUSSED THAT PATIENT WILL GO HOME WITH HOME HEALTH AND PHYSICAL THERAPY UPON DISCHARGE. PATIENTS NIECE REPORTS THAT SHE WILL HAVE TO SPEAK WITH OTHER FAMILY MEMBERS REGARDING DISCHARGE PLAN. OTHERWISE, WE WILL CONTINUE WITH CURRENT PLAN OF CARE TODAY. WE WILL FOLLOW-UP WITH AM LABS AND CONTINUE TO MONITOR. Past Medical Family Social History Past Med/Fam/Surg Hx: No changes since H&P Allergies: Allergies aspirin Allergy (Verified 12/02/21 15:35) Review of Systems ROS changes noted: SEE HPI Vital Signs and I&O's Vital Signs: Temperature 98.7 F Pulse Rate [Left Radial] 68 Pulse Rate 82 Respiratory Rate 20 Blood Pressure [Left Arm] 124/56 Blood Pressure 113/66 O2 Sat by Pulse Oximetry 94 Intake and Output: Intake & Output 12/17/21 12/18/21 12/19/21 12/20/21 23:59 23:59 23:59 23:59 Intake Total 1166 / 1166 1260 / 1260 1160 / 1160 220 / 220 Balance 1166 / 1166 1260 / 1260 1160 / 1160 220 / 220 Physical Exam Oriented: Person and Place Eyes: Normal Ear: Normal Nose: Normal Throat: Normal Respiratory: Generalized and Diminished Cardiovascular: Normal : Normal Auscultation: Bowel Sounds: Normal Tenderness: Normal Skin: Normal Musculoskeletal: Normal Psychiatric: Normal Mood Description: Calm Affect: Normal Speech Pattern: Clear and Appropriate Laboratory and Diagnostics Result Diagrams: 12/19/21 05:30 12/19/21 05:30 Labs: Laboratory WBC 4.3 X10^3/uL (3.6-10.0) 12/19/21 05:30 RBC 3.76 X10^6/uL (3.5-5.4) 12/19/21 05:30 Hgb 11.2 g/dL (12.0-16.0) L 12/19/21 05:30 Hct 33.5 % (36.0-47.0) L 12/19/21 05:30 MCV 89.2 fL (80.0-100.0) 12/19/21 05:30 MCH 29.7 pg (27.0-34.0) 12/19/21 05:30 MCHC 33.3 g/dL (33.0-35.0) 12/19/21 05:30 RDW 16.0 % (11.6-16.5) 12/19/21 05:30 Plt Count 150 X10^3/uL (150.0-450.0) 12/19/21 05:30 Plt Count Comment Adequate (ADEQUATE) 12/16/21 05:03 MPV 10.2 fL (7.4-11.0) 12/19/21 05:30 Neut % (Auto) 64.8 % (42.0-75.0) 12/19/21 05:30 Lymph % (Auto) 17.6 % (21.0-51.0) L 12/19/21 05:30 [place] % (Auto) 14.2 % (0.0-13.0) H 12/19/21 05:30 Eos % (Auto) 2.7 % (0.9-2.9) 12/19/21 05:30 Baso % (Auto) 0.7 % (0.2-1.0) 12/19/21 05:30 Neut # (Auto) 2.8 x10^3/uL (2.2-4.8) 12/19/21 05:30 Lymph # (Auto) 0.8 X10^3/uL (1.3-2.9) L 12/19/21 05:30 [place] # (Auto) 0.6 x10^3/uL (0.3-0.8) 12/19/21 05:30 Eos # (Auto) 0.1 x10^3/uL (0.0-0.2) 12/19/21 05:30 Baso # (Auto) 0.0 X10^3/uL (0.0-0.1) 12/19/21 05:30 Absolute Nucleated RBC 0.1 /100WBC 12/19/21 05:30 Plt Morphology Comment Normal (NORMAL) 12/16/21 05:03 RBC Morphology Normal (NORMAL) 12/16/21 05:03 D-Dimer 1.79 ug/ml (0.0-0.57) H 12/03/21 04:29 Sodium 138 mmol/L (136-145) 12/19/21 05:30 Corrected Sodium 139 mmol/L (136-145) 12/19/21 05:30 Potassium 4.1 mmol/L (3.5-5.1) 12/19/21 05:30 Chloride 104 mmol/L (98-107) 12/19/21 05:30 Carbon Dioxide 26.8 mmol/L (21-32) 12/19/21 05:30 BUN 6 mg/dL (7-18) L 12/19/21 05:30 Creatinine 0.76 mg/dL (0.55-1.02) 12/19/21 05:30 Est GFR (MDRD) Af Amer > 60 (>60) 12/19/21 05:30 Est GFR (MDRD) Non-Af > 60 (>60) 12/19/21 05:30 Glucose 128 mg/dL (65-99) H 12/19/21 05:30 POC Glucose (mg/dL) 183 mg/dL (65-99) H 12/14/21 18:24 Calcium 8.7 mg/dL (8.5-10.1) 12/19/21 05:30 Corrected Calcium 9.3 mg/dL (8.5-10.1) 12/19/21 05:30 Magnesium 2.1 mg/dL (1.7-2.9) 12/13/21 05:30 Total Bilirubin 0.50 mg/dL (0.2-1.0) 12/19/21 05:30 AST 17 Units/L (15-37) 12/19/21 05:30 ALT 14 Units/L (12-78) 12/19/21 05:30 Alkaline Phosphatase 80 Units/L (46-116) 12/19/21 05:30 Creatine Kinase 25 Units/L (26-192) L 12/03/21 04:29 Troponin I High Sens 32.1 ng/L (4.0-60.0) 12/03/21 04:29 C-Reactive Protein 4.00 mg/L (0-3.0) H 12/08/21 04:48 B-Natriuretic Peptide 286 pg/mL (0-79) H 12/08/21 04:48 Total Protein 7.1 g/dL (6.4-8.2) 12/19/21 05:30 Albumin 3.2 g/dL (3.4-5.0) L 12/19/21 05:30 Globulin 3.9 g/dL (2.5-4.5) 12/19/21 05:30 Albumin/Globulin Ratio 0.8 Ratio (1.1-2.1) L 12/19/21 05:30 Specimen Type Clean catch urine 12/02/21 16:48 Urine Color Yellow (YELLOW) 12/02/21 16:48 Urine Appearance Slightly hazy (CLEAR) 12/02/21 16:48 Urine pH 6.0 (5.0 - 8.0) 12/02/21 16:48 Ur Specific [place] 1.025 (1.000-1.030) 12/02/21 16:48 Urine Protein 4+ (NEGATIVE) 12/02/21 16:48 Urine Glucose (UA) Negative (NEGATIVE) 12/02/21 16:48 Urine Ketones Negative (NEGATIVE) 12/02/21 16:48 Urine Blood 1+ (NEGATIVE) 12/02/21 16:48 Urine Nitrite Negative (NEGATIVE) 12/02/21 16:48 Urine Bilirubin Negative (NEGATIVE) 12/02/21 16:48 Urine Urobilinogen Normal (NORMAL) 12/02/21 16:48 Ur Leukocyte Esterase Negative (NEGATIVE) 12/02/21 16:48 Urine RBC 3-5 /HPF (0-3) A 12/02/21 16:48 Urine WBC None seen /HPF (0-5) 12/02/21 16:48 Ur Squamous Epith Cells Rare /HPF (NEGATIVE) 12/02/21 16:48 Amorphous Sediment 3+ /HPF (NEGATIVE) 12/02/21 16:48 Urine Bacteria Trace /HPF (NEGATIVE) 12/02/21 16:48 Hyaline Casts Few /LPF (NEGATIVE) 12/02/21 16:48 Granular Casts Moderate /LPF (NEGATIVE) 12/02/21 16:48 Urine Mucus Few /HPF (NEGATIVE) 12/02/21 16:48 Ur Culture Indicated? No/not indicated 12/02/21 16:48 Salicylates < 2.8 mg/dL (2.8-20) L 12/02/21 15:57 Urine Opiates Screen Negative (NEG=<300) 12/02/21 16:48 Urine Methadone Screen Negative (NEG=<300) 12/02/21 16:48 Acetaminophen 0.0 ug/mL (10-30) L 12/02/21 15:57 Ur Barbiturates Screen Negative (NEG=<200) 12/02/21 16:48 Ur Phencyclidine Scrn Negative (NEG=<25) 12/02/21 16:48 Ur Amphetamines Screen Negative (NEG=<1000) 12/02/21 16:48 U Benzodiazepines Scrn Positive (NEG=<200) A 12/02/21 16:48 Urine Cocaine Screen Negative (NEG=<300) 12/02/21 16:48 U Marijuana (THC) Screen Negative (NEG=<50) 12/02/21 16:48 Ethyl Alcohol mg/dL < 3 mg/dL (0-19.9) 12/02/21 15:57 SARS-CoV-2 (PCR) Negative (NEGATIVE) 12/12/21 10:02 SARS CoV-2 RNA Rapid [place] Positive (NEGATIVE) A 12/02/21 17:40 Plan (1) Acute metabolic encephalopathy: Status: Acute Plan: SUPPLEMENTAL OXYGEN, NORMAL SALINE AT 20 ML/HR, THE POTASSIUM AND MAGNESIUM PROTOCOL, AUGMENTIN 875/125MG PO BID X 10 DAYS, ERYTHROMYCIN OINTMENT QID, DUONEBS QID, PULMICORT NEBS BID, VALIUM 5MG PO TID PRN, LOVENOX 40MG SC DAILY, NORCO 7.5/325MG PO Q6H PRN, TORADOL 30MG IV Q8H, PROTONIX 40MG IV DAILY. 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
[2021-12-21] MEDS: MEGACE PO SCH ×2 (08:25→20:35)
[2021-12-21] MEDS: COLACE CAP 100 MG PO SCH ×2 (08:25→20:34)
[2021-12-21] MEDS: SYNTHROID 25 mcg TAB PO SCH (08:25)
[2021-12-21] MEDS: PROzac PO SCH (08:25)
[2021-12-21] MEDS: PROTONIX TAB 40 MG PO SCH (08:26)
[2021-12-21] MEDS: ILOTYCIN OPHTH OINT LEFTEYE SCH ×4 (08:26→20:51)
[2021-12-21] MEDS: AUGMENTIN 875 MG/125 MG TAB PO SCH ×2 (08:26→20:34)
[2021-12-21] MEDS: LOVENOX INJ 40 MG SYR SC SCH (08:27)
[2021-12-21] MEDS: NORCO 7.5/325 MG TAB PO PRN ×2 (08:33→20:35)
--- NOTE | 2021-12-21 09:59 | PCM.PROG ---
Progress Note Progress Note for Day of Date of Exam: 12/21/21 Subjective Subjective: PT IS A 71 YEAR OLD FEMALE THAT IS CURRENTLY BEING TREATED FOR ACUTE METABOLIC ENCEPHALOPATHY, PNEUMONIA DUE TO COVID-19, ACUTE OTITIS MEDIA, AND GENERALIZED WEAKNESS. SHE HAS A PMH OF DEMENTIA AND HAS RECENTLY HAD A NECK MASS REMOVED DUE TO SQUAMOUS CELL CARCINOMA. THIS MORNING SHE IS RESTING IN BED COMFORTABLY. NO ACUTE EVENTS OVERNIGHT. SHE IS ALERT AND ORIENTED. SHE IS CURRENTLY RECEIVING NORMAL SALINE AT 80 ML/HR, THE POTASSIUM AND MAGNESIUM PROTOCOL, AUGMENTIN 875/125MG PO BID, ERYTHROMYCIN OINTMENT QID, DUONEBS QID, PULMICORT NEBS BID, VALIUM 5MG PO TID PRN, LOVENOX 40MG SC DAILY, NORCO 7.5/325MG PO Q6H PRN, TORADOL 30MG IV Q8H PRN, PROTONIX 40MG IV DAILY, MAGIC MOUTHWASH QID PRN. PHYSICAL THERAPY CONTINUES TO REPORT THAT PATIENT WOULD BENEFIT FROM AND CONTINUED PT SERVICES TO FACILITATE HIGHEST LEVEL OF FUNCTION. CASE MANAGEMENT ATTEMPTED PLACEMENT AT NUMEROUS FACILITIES. PATIENT HAS NOT BEEN ACCEPTED AT ANY FACILITY. THIS HAS BEEN DISCUSSED WITH HER FAMILY MEMBERS A ND DISCUSSED THAT PATIENT WILL GO HOME WITH HOME HEALTH AND PHYSICAL THERAPY UPON DISCHARGE. PATIENTS NIECE REPORTS THAT SHE WILL HAVE TO SPEAK WITH OTHER FAMILY MEMBERS REGARDING DISCHARGE PLAN. OTHERWISE, WE WILL CONTINUE WITH CURRENT PLAN OF CARE TODAY. WE WILL FOLLOW-UP WITH AM LABS AND CONTINUE TO MONITOR. Past Medical Family Social History Past Med/Fam/Surg Hx: No changes since H&P Allergies: Allergies aspirin Allergy (Verified 12/02/21 15:35) Review of Systems ROS changes noted: SEE HPI Vital Signs and I&O's Vital Signs: Temperature 98.2 F Pulse Rate [Left Radial] 86 Pulse Rate 82 Respiratory Rate 20 Blood Pressure [Left Arm] 104/55 Blood Pressure 113/66 O2 Sat by Pulse Oximetry 93 Intake and Output: Intake & Output 12/18/21 12/19/21 12/20/21 12/21/21 23:59 23:59 23:59 23:59 Intake Total 1260 / 1260 1160 / 1160 1280 / 1280 220 / 220 Balance 1260 / 1260 1160 / 1160 1280 / 1280 220 / 220 Physical Exam Oriented: Normal Eyes: Normal Ear: Normal Nose: Normal Throat: Normal Respiratory: Generalized and Diminished Cardiovascular: Normal : Normal Auscultation: Bowel Sounds: Normal Tenderness: Normal Skin: Normal Musculoskeletal: Normal Psychiatric: Normal Mood Description: Calm Affect: Normal Speech Pattern: Clear and Appropriate Laboratory and Diagnostics Result Diagrams: 12/19/21 05:30 12/19/21 05:30 Labs: Laboratory WBC 4.3 X10^3/uL (3.6-10.0) 12/19/21 05:30 RBC 3.76 X10^6/uL (3.5-5.4) 12/19/21 05:30 Hgb 11.2 g/dL (12.0-16.0) L 12/19/21 05:30 Hct 33.5 % (36.0-47.0) L 12/19/21 05:30 MCV 89.2 fL (80.0-100.0) 12/19/21 05:30 MCH 29.7 pg (27.0-34.0) 12/19/21 05:30 MCHC 33.3 g/dL (33.0-35.0) 12/19/21 05:30 RDW 16.0 % (11.6-16.5) 12/19/21 05:30 Plt Count 150 X10^3/uL (150.0-450.0) 12/19/21 05:30 Plt Count Comment Adequate (ADEQUATE) 12/16/21 05:03 MPV 10.2 fL (7.4-11.0) 12/19/21 05:30 Neut % (Auto) 64.8 % (42.0-75.0) 12/19/21 05:30 Lymph % (Auto) 17.6 % (21.0-51.0) L 12/19/21 05:30 [place] % (Auto) 14.2 % (0.0-13.0) H 12/19/21 05:30 Eos % (Auto) 2.7 % (0.9-2.9) 12/19/21 05:30 Baso % (Auto) 0.7 % (0.2-1.0) 12/19/21 05:30 Neut # (Auto) 2.8 x10^3/uL (2.2-4.8) 12/19/21 05:30 Lymph # (Auto) 0.8 X10^3/uL (1.3-2.9) L 12/19/21 05:30 [place] # (Auto) 0.6 x10^3/uL (0.3-0.8) 12/19/21 05:30 Eos # (Auto) 0.1 x10^3/uL (0.0-0.2) 12/19/21 05:30 Baso # (Auto) 0.0 X10^3/uL (0.0-0.1) 12/19/21 05:30 Absolute Nucleated RBC 0.1 /100WBC 12/19/21 05:30 Plt Morphology Comment Normal (NORMAL) 12/16/21 05:03 RBC Morphology Normal (NORMAL) 12/16/21 05:03 D-Dimer 1.79 ug/ml (0.0-0.57) H 12/03/21 04:29 Sodium 138 mmol/L (136-145) 12/19/21 05:30 Corrected Sodium 139 mmol/L (136-145) 12/19/21 05:30 Potassium 4.1 mmol/L (3.5-5.1) 12/19/21 05:30 Chloride 104 mmol/L (98-107) 12/19/21 05:30 Carbon Dioxide 26.8 mmol/L (21-32) 12/19/21 05:30 BUN 6 mg/dL (7-18) L 12/19/21 05:30 Creatinine 0.76 mg/dL (0.55-1.02) 12/19/21 05:30 Est GFR (MDRD) Af Amer > 60 (>60) 12/19/21 05:30 Est GFR (MDRD) Non-Af > 60 (>60) 12/19/21 05:30 Glucose 128 mg/dL (65-99) H 12/19/21 05:30 POC Glucose (mg/dL) 183 mg/dL (65-99) H 12/14/21 18:24 Calcium 8.7 mg/dL (8.5-10.1) 12/19/21 05:30 Corrected Calcium 9.3 mg/dL (8.5-10.1) 12/19/21 05:30 Magnesium 2.1 mg/dL (1.7-2.9) 12/13/21 05:30 Total Bilirubin 0.50 mg/dL (0.2-1.0) 12/19/21 05:30 AST 17 Units/L (15-37) 12/19/21 05:30 ALT 14 Units/L (12-78) 12/19/21 05:30 Alkaline Phosphatase 80 Units/L (46-116) 12/19/21 05:30 Creatine Kinase 25 Units/L (26-192) L 12/03/21 04:29 Troponin I High Sens 32.1 ng/L (4.0-60.0) 12/03/21 04:29 C-Reactive Protein 4.00 mg/L (0-3.0) H 12/08/21 04:48 B-Natriuretic Peptide 286 pg/mL (0-79) H 12/08/21 04:48 Total Protein 7.1 g/dL (6.4-8.2) 12/19/21 05:30 Albumin 3.2 g/dL (3.4-5.0) L 12/19/21 05:30 Globulin 3.9 g/dL (2.5-4.5) 12/19/21 05:30 Albumin/Globulin Ratio 0.8 Ratio (1.1-2.1) L 12/19/21 05:30 Specimen Type Clean catch urine 12/02/21 16:48 Urine Color Yellow (YELLOW) 12/02/21 16:48 Urine Appearance Slightly hazy (CLEAR) 12/02/21 16:48 Urine pH 6.0 (5.0 - 8.0) 12/02/21 16:48 Ur Specific [place] 1.025 (1.000-1.030) 12/02/21 16:48 Urine Protein 4+ (NEGATIVE) 12/02/21 16:48 Urine Glucose (UA) Negative (NEGATIVE) 12/02/21 16:48 Urine Ketones Negative (NEGATIVE) 12/02/21 16:48 Urine Blood 1+ (NEGATIVE) 12/02/21 16:48 Urine Nitrite Negative (NEGATIVE) 12/02/21 16:48 Urine Bilirubin Negative (NEGATIVE) 12/02/21 16:48 Urine Urobilinogen Normal (NORMAL) 12/02/21 16:48 Ur Leukocyte Esterase Negative (NEGATIVE) 12/02/21 16:48 Urine RBC 3-5 /HPF (0-3) A 12/02/21 16:48 Urine WBC None seen /HPF (0-5) 12/02/21 16:48 Ur Squamous Epith Cells Rare /HPF (NEGATIVE) 12/02/21 16:48 Amorphous Sediment 3+ /HPF (NEGATIVE) 12/02/21 16:48 Urine Bacteria Trace /HPF (NEGATIVE) 12/02/21 16:48 Hyaline Casts Few /LPF (NEGATIVE) 12/02/21 16:48 Granular Casts Moderate /LPF (NEGATIVE) 12/02/21 16:48 Urine Mucus Few /HPF (NEGATIVE) 12/02/21 16:48 Ur Culture Indicated? No/not indicated 12/02/21 16:48 Salicylates < 2.8 mg/dL (2.8-20) L 12/02/21 15:57 Urine Opiates Screen Negative (NEG=<300) 12/02/21 16:48 Urine Methadone Screen Negative (NEG=<300) 12/02/21 16:48 Acetaminophen 0.0 ug/mL (10-30) L 12/02/21 15:57 Ur Barbiturates Screen Negative (NEG=<200) 12/02/21 16:48 Ur Phencyclidine Scrn Negative (NEG=<25) 12/02/21 16:48 Ur Amphetamines Screen Negative (NEG=<1000) 12/02/21 16:48 U Benzodiazepines Scrn Positive (NEG=<200) A 12/02/21 16:48 Urine Cocaine Screen Negative (NEG=<300) 12/02/21 16:48 U Marijuana (THC) Screen Negative (NEG=<50) 12/02/21 16:48 Ethyl Alcohol mg/dL < 3 mg/dL (0-19.9) 12/02/21 15:57 SARS-CoV-2 (PCR) Negative (NEGATIVE) 12/12/21 10:02 SARS CoV-2 RNA Rapid [place] Positive (NEGATIVE) A 12/02/21 17:40 Plan (1) Acute metabolic encephalopathy: Status: Acute Plan: SUPPLEMENTAL OXYGEN, NORMAL SALINE AT 20 ML/HR, THE POTASSIUM AND MAGNESIUM PROTOCOL, AUGMENTIN 875/125MG PO BID X 10 DAYS, ERYTHROMYCIN OINTMENT QID, DUONEBS QID, PULMICORT NEBS BID, VALIUM 5MG PO TID PRN, LOVENOX 40MG SC DAILY, NORCO 7.5/325MG PO Q6H PRN, TORADOL 30MG IV Q8H, PROTONIX 40MG IV DAILY. 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
[2021-12-22 05:18] LABS: BASOPHILS % (AUTO) 1.2 % (0.2-1.0); EOSINOPHILS # (AUTO) 0.2 x10^3/uL (0.0-0.2); EOSINOPHILS % (AUTO) 4.1 % (0.9-2.9); HEMOGLOBIN 10.8 g/dL (12.0-16.0); LYMPHOCYTES # (AUTO) 0.9 X10^3/uL (1.3-2.9); MEAN CORPUSCULAR HEMOGLOBIN 30.2 pg (27.0-34.0); MEAN CORPUSCULAR HGB CONC 33.9 g/dL (33.0-35.0); MEAN CORPUSCULAR VOLUME 89.2 fL (80.0-100.0); MONOCYTES # (AUTO) 0.6 x10^3/uL (0.3-0.8); MONOCYTES % (AUTO) 13.2 % (0.0-13.0); NEUTROPHILS # (AUTO) 2.6 x10^3/uL (2.2-4.8); NEUTROPHILS % (AUTO) 60.5 % (42.0-75.0); RED BLOOD COUNT 3.59 X10^6/uL (3.5-5.4); RED CELL DISTRIBUTION WIDTH 16.2 % (11.6-16.5); WHITE BLOOD COUNT 4.3 X10^3/uL (3.6-10.0)
[2021-12-22 05:26] LABS: BLOOD UREA NITROGEN 9 mg/dL (7-18); CALCIUM 8.2 mg/dL (8.5-10.1); CARBON DIOXIDE 28.8 mmol/L (21-32); CHLORIDE 107 mmol/L (98-107); SODIUM 143 mmol/L (136-145); eGFR NON BLACK RACES > 60 (>60)
[2021-12-22] MEDS: K-DUR TAB 20 MEQ PO PRN (05:40)
[2021-12-22] MEDS: ILOTYCIN OPHTH OINT LEFTEYE SCH ×4 (08:47→20:56)
[2021-12-22] MEDS: COLACE CAP 100 MG PO SCH ×2 (08:47→20:44)
[2021-12-22] MEDS: MEGACE PO SCH ×2 (08:47→20:45)
[2021-12-22] MEDS: PROTONIX TAB 40 MG PO SCH (08:47)
[2021-12-22] MEDS: AUGMENTIN 875 MG/125 MG TAB PO SCH ×2 (08:47→20:44)
[2021-12-22] MEDS: LOVENOX INJ 40 MG SYR SC SCH (08:47)
[2021-12-22] MEDS: SYNTHROID 25 mcg TAB PO SCH (08:47)
[2021-12-22] MEDS: PROzac PO SCH (08:47)
[2021-12-22] MEDS: NORCO 7.5/325 MG TAB PO PRN ×2 (10:16→20:45)
[2021-12-22] MEDS: VALIUM PO PRN ×2 (10:16→20:46)
[2021-12-23 05:05] LABS: EOSINOPHILS # (AUTO) 0.2 x10^3/uL (0.0-0.2); EOSINOPHILS % (AUTO) 4.7 % (0.9-2.9); HEMATOCRIT 33.6 % (36.0-47.0); HEMOGLOBIN 11.2 g/dL (12.0-16.0); LYMPHOCYTES # (AUTO) 0.7 X10^3/uL (1.3-2.9); LYMPHOCYTES % (AUTO) 17.2 % (21.0-51.0); MEAN CORPUSCULAR HEMOGLOBIN 29.8 pg (27.0-34.0); MEAN CORPUSCULAR HGB CONC 33.5 g/dL (33.0-35.0); MEAN CORPUSCULAR VOLUME 88.9 fL (80.0-100.0); MEAN PLATELET VOLUME 10.8 fL (7.4-11.0); MONOCYTES # (AUTO) 0.5 x10^3/uL (0.3-0.8); MONOCYTES % (AUTO) 11.5 % (0.0-13.0); NEUTROPHILS # (AUTO) 2.6 x10^3/uL (2.2-4.8); NEUTROPHILS % (AUTO) 65.6 % (42.0-75.0); RED BLOOD COUNT 3.78 X10^6/uL (3.5-5.4); RED CELL DISTRIBUTION WIDTH 15.7 % (11.6-16.5)
[2021-12-23 05:21] LABS: ALANINE AMINOTRANSFERASE 15 Units/L (12-78); ALBUMIN 2.8 g/dL (3.4-5.0); ALKALINE PHOSPHATASE 77 Units/L (46-116); ASPARTATE AMINO TRANSFERASE 15 Units/L (15-37); BLOOD UREA NITROGEN 6 mg/dL (7-18); CALCIUM 8.5 mg/dL (8.5-10.1); CARBON DIOXIDE 27.2 mmol/L (21-32); CHLORIDE 105 mmol/L (98-107); COR CA(FOR HYPOALB) 9.5 mg/dL (8.5-10.1); COR NA(FOR HYPERGLY) 140 mmol/L (136-145); CREATININE 0.67 mg/dL (0.55-1.02); MAGNESIUM 1.7 mg/dL (1.7-2.9); SODIUM 138 mmol/L (136-145); TOTAL PROTEIN 6.5 g/dL (6.4-8.2); eGFR NON BLACK RACES > 60 (>60)
[2021-12-23] MEDS: K-DUR TAB 20 MEQ PO PRN (06:12)
[2021-12-23] MEDS: AUGMENTIN 875 MG/125 MG TAB PO SCH (10:01)
[2021-12-23] MEDS: PROTONIX TAB 40 MG PO SCH (10:02)
[2021-12-23] MEDS: SYNTHROID 25 mcg TAB PO SCH (10:02)
[2021-12-23] MEDS: PROzac PO SCH (10:02)
[2021-12-23] MEDS: ILOTYCIN OPHTH OINT LEFTEYE SCH ×2 (10:03→13:02)
[2021-12-23] MEDS: COLACE CAP 100 MG PO SCH (10:03)
[2021-12-23] MEDS: LOVENOX INJ 40 MG SYR SC SCH (10:03)
[2021-12-23] MEDS: MEGACE PO SCH (10:03)
[2021-12-23] MEDS: VALIUM PO PRN (10:04)
[2021-12-23] MEDS: NORCO 7.5/325 MG TAB PO PRN (10:04)
[2021-12-23 12:15] VITALS: BP 119/59
== END 2021-12-23 14:30 | disposition home health service (06) | DRG 70 ==
LOC: ER 15:29 → ICU 21:49 → MED/SURG 12-08 17:48
PROVIDERS: ADMIT Obstetrics & Gynecology Obstetrics; ATTEND Internal Medicine
DX: R90.82 White matter disease, unspecified; U07.1 COVID-19; G93.41 Metabolic encephalopathy; E87.6 Hypokalemia; C76.0 Malignant neoplasm of head, face and neck; E11.9 Type 2 diabetes mellitus without complications; R53.1 Weakness; F05 Delirium due to known physiological condition; Z79.01 Long term (current) use of anticoagulants; J12.82 Pneumonia due to coronavirus disease 2019; F32.A Depression, unspecified; H66.003 Acute suppurative otitis media without spontaneous rupture of ear drum, bilateral; U09.9 Post COVID-19 condition, unspecified; F22 Delusional disorders; J20.8 Acute bronchitis due to other specified organisms; F03.91 Unspecified dementia, unspecified severity, with behavioral disturbance; F41.1 Generalized anxiety disorder; R06.2 Wheezing; R26.89 Other abnormalities of gait and mobility; I10 Essential (primary) hypertension; J44.9 Chronic obstructive pulmonary disease, unspecified

== ENCOUNTER 2022-08-10 16:32 | Observation (INO) ==
[2022-08-10 18:11] VITALS: BMI 17.2
[2022-08-10 19:27] LABS: BASOPHILS # (AUTO) 0.1 X10^3/uL (0.0-0.1); EOSINOPHILS # (AUTO) 0.2 x10^3/uL (0.0-0.2); EOSINOPHILS % (AUTO) 3.5 % (0.9-2.9); HEMATOCRIT 38.1 % (36.0-47.0); HEMOGLOBIN 12.7 g/dL (12.0-16.0); LYMPHOCYTES # (AUTO) 0.9 X10^3/uL (1.3-2.9); LYMPHOCYTES % (AUTO) 18.6 % (21.0-51.0); MEAN CORPUSCULAR HEMOGLOBIN 30.3 pg (27.0-34.0); MEAN CORPUSCULAR HGB CONC 33.3 g/dL (33.0-35.0); MEAN CORPUSCULAR VOLUME 90.9 fL (80.0-100.0); MEAN PLATELET VOLUME 9.5 fL (7.4-11.0); MONOCYTES # (AUTO) 0.5 x10^3/uL (0.3-0.8); MONOCYTES % (AUTO) 9.3 % (0.0-13.0); NEUTROPHILS # (AUTO) 3.3 x10^3/uL (2.2-4.8); NEUTROPHILS % (AUTO) 66.6 % (42.0-75.0); PLATELET COUNT 172 X10^3/uL (150.0-450.0); RED BLOOD COUNT 4.19 X10^6/uL (3.5-5.4); RED CELL DISTRIBUTION WIDTH 15.9 % (11.6-16.5)
[2022-08-10 19:41] LABS: ALANINE AMINOTRANSFERASE 42 Units/L (12-78); ALBUMIN 3.6 g/dL (3.4-5.0); ALKALINE PHOSPHATASE 131 Units/L (46-116); ASPARTATE AMINO TRANSFERASE 45 Units/L (15-37); BLOOD UREA NITROGEN 24 mg/dL (7-18); CALCIUM 8.7 mg/dL (8.5-10.1); CARBON DIOXIDE 26.6 mmol/L (21-32); CHLORIDE 100 mmol/L (98-107); COR NA(FOR HYPERGLY) 135 mmol/L (136-145); CREATINE KINASE 86 Units/L (26-192); CREATININE 0.89 mg/dL (0.55-1.02); GLUCOSE 144 mg/dL (65-99); POTASSIUM 3.9 mmol/L (3.5-5.1); SODIUM 134 mmol/L (136-145); TOTAL PROTEIN 8.7 g/dL (6.4-8.2); eGFR NON BLACK RACES > 60 (>60)
[2022-08-10] MEDS: NS 1,000 ML IV 1,000 ML with MVI INJ (ADULT) 10 ML IV SCH ×2 (20:18)
[2022-08-10] MEDS: MEGACE PO SCH (20:18)
[2022-08-10] MEDS: VALIUM PO PRN (20:19)
[2022-08-10] MEDS: PERCOCET TAB 5/325 MG PO PRN (20:21)
--- NOTE | 2022-08-10 23:23 | EKG ---
Test Reason : weakness Blood Pressure : */* mmHG Vent. Rate : 58 BPM Atrial Rate : 58 BPM P-R Int : 172 ms QRS Dur : 74 ms QT Int : 422 ms P-R-T Axes : 52 21 12 degrees QTc Int : 414 ms Sinus bradycardia with sinus arrhythmia Nonspecific ST and T wave abnormality Abnormal ECG No previous ECGs available Confirmed by Jj Santamaria ([id number]) on 08/11/2022 8:05:49 AM Referred By: Confirmed By: Jj Santamaria
[2022-08-10 23:43] LABS: BILIRUBIN,URINE NEGATIVE (NEGATIVE); BLOOD/HEMOGLOBIN,URINE NEGATIVE (NEGATIVE); GLUCOSE, URINE NEGATIVE (NEGATIVE); KETONES,URINE NEGATIVE (NEGATIVE); LEUKOCYTE ESTERASE ,URINE 1+ (NEGATIVE); NITRITES,URINE NEGATIVE (NEGATIVE); PROTEIN,URINE 1+ (NEGATIVE); UROBILINOGEN,URINE NORMAL (NORMAL)
[2022-08-10 23:49] LABS: APPEARANCE,URINE CLEAR (CLEAR); COLOR,URINE DARK YELLOW (YELLOW)
[2022-08-10 23:50] LABS: BACTERIA,URINE TRACE /HPF (NEGATIVE); RBC,URINE 0-2 /HPF (0-3); SQUAMOUS EPITHELIAL CELL,UR FEW /HPF (NEGATIVE)
--- NOTE | 2022-08-11 01:29 | CT ---
STUDY: CT HEAD WITHOUT IV CONTRASTCOMPARISON: 08/03/2022TECHNIQUE: axial images were acquired of the head without IV contrast. Coronal and sagittal images were provided. All images were reviewed in a variety of windows and levels.LIMITATIONS: Please note that CT has low sensitivity and accuracy for identifying acute infarction. In addition, there are portions of the brain that are affected by beam hardening artifact which further greatly limits identification of an acute infarct.RADIATION REDUCTION TECHNIQUE: Automated exposure control, Adjustment of the mA and/or kV according to patient size, or iterative reconstruction techniques were used.HISTORY: altered mental status, generalized weaknessFINDINGS:There is diffuse cerebral atrophy with a regional distribution of low attenuation along the periventricular white matter most likely representing small vessel ischemic changes which are to a degree that would be considered within normal limits for the patient's stated age.There is no evidence of an acute intracranial bleed.There is no evidence of a mass or midline shift.There is no evidence of an extra-axial fluid collection.The pineda-white matter differentiation is within normal limits.The visualized bones are unremarkable.The visualized sinuses are clear.Right mastoid air cells are well aerated. Left mastoid air cells are diffusely opacified.IMPRESSION:1. INVOLUTIONAL CHANGES ARE PRESENT WITH FINDINGS SUGGESTING SMALL VESSEL ISCHEMIC DISEASE WHICH IS TO A DEGREE THAT WOULD BE CONSIDERED WITHIN NORMAL LIMITS FOR THE PATIENT'S STATED AGE.2. THERE IS NO EVIDENCE OF ACUTE INTRACRANIAL BLEED.Nancy lara signed by: Morro Foley (August 11, 2022 01:27:34)
--- NOTE | 2022-08-11 05:59 | RAD ---
HISTORYweaknessSTUDYCHEST, 1 [id number]/08/2023FINDINGSThe trachea is midline. The cardiac silhouette is enlarged with a tortuous thoracic aorta. Chronic interstitial lung changes are observed without focal infiltrate or effusion. The bony thorax is unremarkable.IMPRESSIONNo acute cardiopulmonary disease.Electronically signed by: FILIBERTO LAUGHLIN (August 11, 2022 05:58:02)
[2022-08-11 06:04] LABS: BASOPHILS # (AUTO) 0.1 X10^3/uL (0.0-0.1); BASOPHILS % (AUTO) 1.1 % (0.2-1.0); EOSINOPHILS # (AUTO) 0.3 x10^3/uL (0.0-0.2); EOSINOPHILS % (AUTO) 5.9 % (0.9-2.9); HEMATOCRIT 33.5 % (36.0-47.0); HEMOGLOBIN 11.1 g/dL (12.0-16.0); LYMPHOCYTES # (AUTO) 1.2 X10^3/uL (1.3-2.9); LYMPHOCYTES % (AUTO) 23.2 % (21.0-51.0); MEAN CORPUSCULAR HEMOGLOBIN 30.1 pg (27.0-34.0); MEAN CORPUSCULAR HGB CONC 33.2 g/dL (33.0-35.0); MEAN CORPUSCULAR VOLUME 90.6 fL (80.0-100.0); MEAN PLATELET VOLUME 9.7 fL (7.4-11.0); MONOCYTES # (AUTO) 0.6 x10^3/uL (0.3-0.8); MONOCYTES % (AUTO) 12.6 % (0.0-13.0); NEUTROPHILS # (AUTO) 2.9 x10^3/uL (2.2-4.8); NEUTROPHILS % (AUTO) 57.2 % (42.0-75.0); PLATELET COUNT 166 X10^3/uL (150.0-450.0); RED CELL DISTRIBUTION WIDTH 15.4 % (11.6-16.5)
[2022-08-11 06:16] LABS: ALANINE AMINOTRANSFERASE 33 Units/L (12-78); ALBUMIN 2.9 g/dL (3.4-5.0); ALKALINE PHOSPHATASE 105 Units/L (46-116); ASPARTATE AMINO TRANSFERASE 41 Units/L (15-37); BLOOD UREA NITROGEN 17 mg/dL (7-18); CALCIUM 8.3 mg/dL (8.5-10.1); CARBON DIOXIDE 27.8 mmol/L (21-32); CHLORIDE 105 mmol/L (98-107); COR CA(FOR HYPOALB) 9.2 mg/dL (8.5-10.1); CREATININE 0.81 mg/dL (0.55-1.02); GLUCOSE 91 mg/dL (65-99); POTASSIUM 4.1 mmol/L (3.5-5.1); SODIUM 138 mmol/L (136-145); TOTAL PROTEIN 7.3 g/dL (6.4-8.2); eGFR NON BLACK RACES > 60 (>60)
[2022-08-11] MEDS: MEGACE PO SCH ×2 (08:24→20:33)
[2022-08-11] MEDS: SYNTHROID 25 mcg TAB PO SCH (08:24)
[2022-08-11] MEDS: NS 1,000 ML IV 1,000 ML with MVI INJ (ADULT) 10 ML IV SCH ×6 (09:05→20:35)
[2022-08-11] MEDS ORDERED: NS 1,000 ML IV 1,000 ML ONE (10:53)
--- NOTE | 2022-08-11 11:10 | DR.UPDATE ---
H&P Update Prescription drug monitoring program results: PDMP reviewed with concerns identified H&P Reviewed: Yes Any changes to H&P?: Yes Changes noted:: IS A 72 YEAR OLD PATIENT OF OURS. SHE PRESENTED TO THE OFFICE ON 08/10/22 WITH COMPLAINTS OF HEADACHE, LOW BACK PAIN, DIZZINESS, AND WEAKNESS. HER NIECE IS WITH HER AND REPORTS THAT PATIENT HAS HAD CONFUSION AND DISORIENTATION ON AND OFF FOR THE PAST WEEK. HER NIECE REPORTS THAT SHE HAS FALLEN SEVERAL TIMES OVER THE PAST MONTH. HER PMH INCLUDES COPD, DM II, THROAT CANCER, ANXIETY, DEPRESSION, CHRONIC LOW BACK PAIN, TONSILLECTOMY, AND RADICAL RESECTION OF MASS IN THROAT. PATIENT WAS APPARENTLY SEEN IN THE ER ONE WEEK AGO DUE TO STROKE LIKE SYMPTOMS. WORK-UP WAS NEGATIVE FOR ACUTE FINDINGS AND PATIENT WAS DISCHARGED HOME. DECISION WAS MADE TO ADMIT PATIENT TO THE HOSPITAL OBSERVATION STATUS FOR FURTHER EVALUATION AND TREATMENT. ON ARRIVAL TO THE HOSPITAL, VITALS WERE 98.1-74-20-98%-110/67. SHE WAS ON ROOM AIR. LABS WERE OBTAINED. WBC 4.7, RBC 3.59, HGB 10.7, HCT 32.6, PLT COUNT 213, SODIUM 134, POTASSIUM 4.2, CHLORIDE 104, BUN 16, CREATININE 0.88, GLUCOSE 136, CALCIUM 8.5, AST 34, ALT 27, AL PHOS 131, CREATINE KINASE 47, BNP 224, TOTAL PROTEIN 7.8. URINALYSIS REVEALED: WBC 0-2, RBC 0-2, LEUKOCYTES 1+, BACTERIA TRACE. A URINE CULUTRE WAS SET UP. A CHEST XRAY WAS OBTAINED AND REVEALED: NO ACUTE CARDIOPULMONARY DISEASE. A BRAIN CT WAS OBTAINED AND REVEALED: 1. INVOLUTIONAL CHANGES ARE PRESENT WITH FINDINGS SUGGESTING SMALL VESSEL ISCHEMIC DISEASE WHICH IS TO A DEGREE THAT WOULD BE CONSIDERED WITHIN NORMAL LIMITS FOR THE PATIENT'S STATED AGE. 2. THERE IS NO EVIDENCE OF ACUTE INTRACRANIAL BLEED. EKG REVEALED: SINUS BRADYCARDIA WITH SINUS ARRHYTHMIA. HEARTRATE 58 BPM. SHE WAS STARTED ON NORMAL SALINE WITH MVI AT 80 ML/HR. HER HOME MEDICATIONS OF DIAZEPAM, SYNTHROID, MEGACE, FAMOTIDINE, IBUPROFEN, AND PERCOCET WERE RESUMED. WE WILL HAVE PHYSICAL THERAPY EVALUATE AND WORK WITH PATIENT. OTHERWISE, WE WILL FOLLOW-UP WITH AM LABS AND CONTINUE TO MONITOR. TIME SPENT ON CLINICAL ASSESSMENT, REVIWING LABS AND IMAGING, DECISION MAKING, AND DOCUMENTATION GREATER THAN 75 MINUTES. Patient was examined?: Yes
[2022-08-11] MEDS: PEPCID TAB 20 MG PO SCH (12:33)
[2022-08-11] MEDS: LOVENOX INJ 40 MG SYR SC SCH (12:33)
[2022-08-11] MEDS: K-DUR TAB 20 MEQ PO SCH ×2 (12:53→20:33)
[2022-08-11] MEDS ORDERED: ZOFRAN INJ 4 MG VIAL IVP PRN (14:01)
[2022-08-11] MEDS: PERCOCET TAB 5/325 MG PO PRN (17:10)
[2022-08-11] MEDS: MOTRIN TAB 600 MG PO PRN (23:16)
[2022-08-12] MEDS: NS 1,000 ML IV 1,000 ML with MVI INJ (ADULT) 10 ML IV SCH ×4 (01:58→10:47)
[2022-08-12 05:20] LABS: BASOPHILS # (AUTO) 0.1 X10^3/uL (0.0-0.1); BASOPHILS % (AUTO) 1.2 % (0.2-1.0); EOSINOPHILS # (AUTO) 0.2 x10^3/uL (0.0-0.2); EOSINOPHILS % (AUTO) 4.5 % (0.9-2.9); HEMATOCRIT 32.7 % (36.0-47.0); HEMOGLOBIN 11.1 g/dL (12.0-16.0); LYMPHOCYTES # (AUTO) 1.2 X10^3/uL (1.3-2.9); LYMPHOCYTES % (AUTO) 26.4 % (21.0-51.0); MEAN CORPUSCULAR HEMOGLOBIN 30.9 pg (27.0-34.0); MEAN CORPUSCULAR VOLUME 90.8 fL (80.0-100.0); MEAN PLATELET VOLUME 10.5 fL (7.4-11.0); MONOCYTES # (AUTO) 0.5 x10^3/uL (0.3-0.8); MONOCYTES % (AUTO) 10.6 % (0.0-13.0); NEUTROPHILS # (AUTO) 2.6 x10^3/uL (2.2-4.8); NEUTROPHILS % (AUTO) 57.3 % (42.0-75.0); PLATELET COUNT 159 X10^3/uL (150.0-450.0); RED CELL DISTRIBUTION WIDTH 15.3 % (11.6-16.5); WHITE BLOOD COUNT 4.5 X10^3/uL (3.6-10.0)
[2022-08-12 05:32] LABS: ALANINE AMINOTRANSFERASE 34 Units/L (12-78); ALBUMIN 3.1 g/dL (3.4-5.0); ALKALINE PHOSPHATASE 110 Units/L (46-116); ASPARTATE AMINO TRANSFERASE 39 Units/L (15-37); BLOOD UREA NITROGEN 11 mg/dL (7-18); CALCIUM 8.7 mg/dL (8.5-10.1); CARBON DIOXIDE 25.7 mmol/L (21-32); CHLORIDE 105 mmol/L (98-107); COR CA(FOR HYPOALB) 9.4 mg/dL (8.5-10.1); CREATININE 0.79 mg/dL (0.55-1.02); GLUCOSE 81 mg/dL (65-99); POTASSIUM 4.2 mmol/L (3.5-5.1); SODIUM 137 mmol/L (136-145); TOTAL PROTEIN 7.4 g/dL (6.4-8.2); eGFR NON BLACK RACES > 60 (>60)
[2022-08-12] MEDS: MOTRIN TAB 600 MG PO PRN ×2 (06:47→10:12)
[2022-08-12 08:12] VITALS: BP 169/73
[2022-08-12] MEDS: K-DUR TAB 20 MEQ PO SCH (09:30)
[2022-08-12] MEDS: PEPCID TAB 20 MG PO SCH (09:30)
[2022-08-12] MEDS: SYNTHROID 25 mcg TAB PO SCH (09:30)
[2022-08-12] MEDS: MEGACE PO SCH (09:30)
[2022-08-12] MEDS: LOVENOX INJ 40 MG SYR SC SCH (10:13)
[2022-08-12] MEDS: VALIUM PO PRN (10:21)
[2022-08-12] MEDS ORDERED: PREVNAR 20 SYRINGE IM ONE (12:45)
== END 2022-08-12 15:00 | disposition home health service (06) ==
LOC: MED/SURG
PROVIDERS: ADMIT Internal Medicine; ATTEND Internal Medicine